=== PATIENT | male | born 1935 | race Caucasian/White ===

== ENCOUNTER → 2017-01-18 | Outpatient (CLI) | payer MEDICARE ==
[~2017-01-18] MED LIST: ALLO100T PO; ALLP100T PO; AMIO200T2 PO; APIX5TAB PO; ASPI-84 PO; ATOR40TA PO; CEFU500T PO; CHOL2000 PO; DOCU100T7 PO; ENAL5TAB PO; ENLP5T PO; FENO160T PO; FENO160T12 PO; GINK60CA13 PO; GLUC10002 PO; LOSA25TA21 PO; LUBI24CA6 PO; NAPR220T66 PO; OMEG1CAP51 PO; OMEP10CA4 PO; OXYB5TAB9 PO; SIMV40TA2 PO; SOTA120T17 PO; TRAZ-28 PO; VIT1CAPS44 PO; WRF5T PO; ZOLP5TAB PO
--- OUTSIDE RECORDS SUMMARY | 2017-01-18 11:31 | XMS REPORT | Continuity of Care Document ---
Author Author [facility] Organization [facility] Address Unknown Phone Unavailable Care Team Providers Care Vault Mechanic Name Role Phone Pilar Martinez PCP [phone] Source Comments Some departments are not documenting in the electronic medical record. If you do not see the information that you expected, contact Release of Information in the Health Information Management department at [phone] for further assistance in locating additional records.[facility] Active Allergies and Adverse Reactions No Known Allergies Current Medications Prescription Sig. Disp. Refills Start End Date Status Date simvastatin (ZOCOR) 20 mg Take 20 mg by mouth at Active tablet bedtime daily. allopurinol (ZYLOPRIM) Take 100 mg by mouth Active 100 mg tablet daily. aspirin EC 81 mg tablet Take 81 mg by mouth Active daily. fenofibrate(+) (TRIGLIDE) Take 160 mg by mouth Active 160 mg tablet daily. losartan (COZAAR) 25 mg Take 25 mg by mouth Active tablet daily. oxybutynin (DITROPAN) 5 Take 5 mg by mouth twice Active mg tablet daily as needed. apixaban (ELIQUIS) 5 mg Take 5 mg by mouth twice Active tab tablet daily. amiodarone (CORDARONE) Take 200 mg by mouth Active 200 mg tablet daily. Active Problems Problem Noted Date Carotid artery stenosis 06/16/2014 Hypertension 06/16/2014 Hyperlipidemia 06/16/2014 Paroxysmal atrial fibrillation (HCC) 06/16/2014 SSS (sick sinus syndrome) (HCC) 06/16/2014 Overview: 03/23/2006: Pacemaker Placed: Medtronic 03/23/2014: PM Interrogation showed multiple episodes of PAT, questionalbe one episode of VT 05/27/2014: MPI: Lexiscan, no significant ischemia or infarction 06/03/2014: Echo: EF 60%, mild mitral and tricuspid regurg, aortic valve stenosis Most Recent Encounters Date Type Specialty Providers Description 01/09/2017 Documentation Cardiology Peggy Juarez, Amiodarone Monitoring - RN following with Dr. Walker in [place], [place] Social History Tobacco Use Types Packs/Day Years Used Date Former Smoker Cigarettes Smokeless Tobacco: Never Used Comments: quit 40 years ago Alcohol Use Drinks/Week oz/Week Comments Yes 5 oz daily Last Filed Vital Signs Vital Sign Reading Time Taken Blood Pressure 120/80 12/24/2014 10:39 AM PROJECT DEVELOPMENT LEADER Pulse 63 12/24/2014 10:39 AM PROJECT DEVELOPMENT LEADER Temperature - - Respiratory Rate - - Height 1.778 m (5' 10") 12/24/2014 10:10 AM PROJECT DEVELOPMENT LEADER Weight 82.101 kg (181 lb) 12/24/2014 10:10 AM PROJECT DEVELOPMENT LEADER Body Mass Index 25.97 12/24/2014 10:10 AM PROJECT DEVELOPMENT LEADER Oxygen Saturation - - Plan of Care Health Maintenance Due Date Last Done Comments Physical (Comprehensive) 1942 Exam Pertussis Vaccine 1945 Tetanus Vaccine 1951 Shingles Vaccine 1994 Prevnar/Pneumovax (#1) 1999 Influenza Vaccine 07/27/2016 Results from Last 3 Months Not on file
--- NOTE | 2017-01-18 12:48 | Diagnostic Imaging Report ---
PA and lateral chest at 11:49 a.m. DICTATION: Medication monitoring, amiodarone. FINDINGS: The heart size is within normal limits and stable when compared to 04/13/2016. The dual-lead pacemaker on the left seen previously is again evident and no different. The small granuloma in the right mid lung noted on the prior exam is also again visualized and unchanged. The lungs themselves are clear and well aerated. There is no sign of failure, pneumonia or pleural effusion to suggest an acute abnormality. The mediastinum is not widened. The osseous structures are intact. IMPRESSION: There is no evidence for active disease. Overall, there has been no adverse change since the prior exam. Dictated by: Dictated on workstation # [id number]
== END ==
LOC: RAD 11:22
PROVIDERS: ATTEND Internal Medicine
DX: Z09 Encounter for follow-up examination after completed treatment for conditions other than malignant neoplasm (principal); Z79.899 Other long term (current) drug therapy
CPT/HCPCS: 71020

== ENCOUNTER → 2017-06-26 | Outpatient (CLI) | payer MEDICARE ==
--- NOTE | 2017-06-26 12:44 | Diagnostic Imaging Report ---
EXAMINATION: PA and lateral views of the chest. INDICATION: Carotid artery stenosis. FINDINGS: There is a calcified granuloma in the right perihilar region. The left lung is clear of focal infiltrate. There is mild left basilar scarring, similar to 01/18/2017. The heart size is normal. No effusion or pneumothorax. The mediastinum and jose g appear unremarkable. There is a pacemaker with two cardiac leads seen. IMPRESSION: No acute process. Dictated by: Dictated on workstation # [id number]
== END ==
LOC: RAD 10:35
PROVIDERS: ATTEND Physician Assistant
DX: I65.23 Occlusion and stenosis of bilateral carotid arteries (principal); I10 Essential (primary) hypertension; E78.2 Mixed hyperlipidemia; I48.0 Paroxysmal atrial fibrillation
CPT/HCPCS: 71020

== ENCOUNTER 2017-07-13 11:15 | Outpatient (RCR) | payer MEDICARE | END 2017-07-13 12:06 | disposition home or self-care (01) | PROVIDERS: ATTEND Internal Medicine Cardiovascular Disease | DX: R53.81 Other malaise (principal); R53.1 Weakness ==

== ENCOUNTER 2017-08-04 22:31 | Emergency (ER) | payer MEDICARE ==
[~2017-08-04] VITALS: Ht 177.8 cm; Wt 78.9 kg
--- OUTSIDE RECORDS SUMMARY | 2017-08-04 22:37 | XMS REPORT | Clinical Summary ---
Author Author [facility] Organization [facility] Address Unknown Phone Unavailable Care Team Providers Care Pattern Molder Name Role Phone PCP Unavailable Source Comments Some departments are not documenting in the electronic medical record. If you do not see the information that you expected, contact Release of Information in the Health Information Management department at [phone] for further assistance in locating additional records.[facility] Allergies No Known Allergies Current Medications Prescription Sig. [...] mitral and tricuspid regurg, aortic valve stenosis Social History Tobacco Use Types Packs/Day Years Used Date Former Smoker Cigarettes Smokeless Tobacco: Never Used Comments: quit 40 years ago Alcohol Use Drinks/Week oz/Week Comments Yes 5 oz daily Sex Assigned at Date Recorded Not on file Last Filed Vital Signs Vital Sign Reading Time Taken Blood Pressure 120/80 12/24/2014 10:39 AM OSCILLOGRAPH TECHNICIAN Pulse 63 12/24/2014 10:39 AM OSCILLOGRAPH TECHNICIAN Temperature - - Respiratory Rate - - Oxygen Saturation - - Inhaled Oxygen - - Concentration Weight 82.1 kg (181 lb) 12/24/2014 10:10 AM OSCILLOGRAPH TECHNICIAN Height 177.8 cm (5' 10") 12/24/2014 10:10 AM OSCILLOGRAPH TECHNICIAN Body Mass Index 25.97 12/24/2014 10:10 AM OSCILLOGRAPH TECHNICIAN Plan of Treatment Health Maintenance Due Date Last Done Comments PHYSICAL (COMPREHENSIVE) 1942 EXAM PERTUSSIS VACCINE 1945 TETANUS VACCINE 1951 SHINGLES VACCINE 1994 PREVNAR/PNEUMOVAX (#1) 1999 INFLUENZA VACCINE 07/27/2017 Results Not on filefrom Last 3 Months
--- NOTE | 2017-08-05 00:12 | ED Fall/Injury ---
General Chief Complaint: Trauma-Non Activation Stated Complaint: R HIP PAIN FROM FALL AT FOOTBALL GAME Nursing Triage Note: RIGHT HIP PAIN/SWELLING, RIGHT FACIAL ABRASION S/P FALL FROM STANDING POSITION. NO LOC Source: patient, family Exam Limitations: no limitations History of Present Illness Time seen by provider: 22:53 Initial Comments This 82-year-old gentleman presents to the emergency room with injury to the right thigh and face after falling at a local football game today between 18:00 and 19:00. He has some gait disturbance due to prior stroke which he states caused the fall. He fell onto the left side and has abrasions/contusions to the right face as well as apparent hematoma to the right thigh. He did attend the football game and then decided to come to the emergency room because of increasing pain and swelling in the right thigh. He does take Eliquis due to history of A. fib. He denies any headache or neurologic changes associated with his head injury. He has no active bleeding at this time. He also has a minor skin tear on the right elbow but no significant pain. He denies any acute vision changes. Location Injury Occurred: FOOTBALL GAME Occurred: this evening Allergies and Home Medications Allergies Coded Allergies: QIANo Known Allergies (Verified Allergy, Unknown, 03/23/06) Home Medications Allopurinol 100 Mg Tablet, 100 MG PO DAILY, (Reported) Amiodarone HCl 200 Mg Tablet, 200 MG PO DAILY, (Reported) Apixaban 5 Mg Tablet, 5 MG PO BID, #30 Prescribed by: GUNNER JUAREZ on 10/02/15 1052 Atorvastatin Calcium 40 Mg Tablet, 40 MG PO DAILY, #30 Ref 3 Prescribed by: FIDELINA HEARN on 10/04/15 0910 Docusate Sodium 100 Mg Tablet, 100 MG PO BID PRN for CONSTIPATION, (Reported) Enalapril Maleate 5 Mg Tablet, 5 MG PO DAILY, #30 Prescribed by: GUNNER JUAREZ on 10/02/15 1031 Losartan Potassium 25 Mg Tablet, 25 MG PO DAILY, (Reported) Lubiprostone 24 Mcg Capsule, 24 MCG PO DAILY, #30 Prescribed by: GUNNER JUAREZ on 10/03/15 1246 Naproxen Sodium 220 Mg Tablet, 220 MG PO Q8H PRN for PAIN, (Reported) Omeprazole 10 Mg Capsule.dr, 10 MG PO DAILY, #30 Prescribed by: GUNNER JUAREZ on 10/02/15 1024 Oxybutynin Chloride 5 Mg Tablet, 5 MG PO BID, (Reported) Trazodone HCl 50 Mg Tablet, 50 MG PO HS, #30 Prescribed by: GUNNER JUAREZ on 10/02/15 1020 Vit C/E/Zn/Coppr/Lutein/Zeaxan 1 Each Capsule, 1 CAP PO BID, (Reported) Constitutional: no symptoms reported Eyes: See HPI Ears, Nose, Mouth, Throat: no symptoms reported Respiratory: no symptoms reported Cardiovascular: see HPI Gastrointestinal: no symptoms reported Genitourinary: no symptoms reported Musculoskeletal: no symptoms reported Skin: see HPI Psychiatric/Neurological: No Symptoms Reported Past Tkbzwgk-Lhcusz-Lymgpx Hx Patient Social History Alcohol Use: Regular Use Alcohol Beverage of Choice: Beer, Wine Recreational Drug Use: No Smoking Status: Never a Smoker 2nd Hand Smoke Exposure: No Recent Foreign Travel: No Contact w/Someone Who Travel: No Recent Infectious Disease Expo: No Recent Hopitalizations: No Immunizations Up To Date Tetanus Booster (TDap): Unknown Date of Pneumonia Vaccine: Jul 14, 2013 Seasonal Allergies Seasonal Allergies: No Surgeries History of Surgeries: Yes (kidney, liver lac. repair(17yrsold),/hernia repair x 2/pacemaker) Surgeries: Abdominal, Eye Surgery (retinal detachment right eye), Pacemaker Respiratory History of Respiratory Disorde: No Cardiovascular History of Cardiac Disorders: Yes Cardiac Disorders: Atrial Fibrillation, High Cholesterol, Hypertension Neurological History of Neurological Disord: Yes Neurological Disorders: Stroke Reproductive System Hx Reproductive Disorders: No Gastrointestinal History of Gastrointestinal Di: No Musculoskeletal History of Musculoskeletal Dis: Yes Musculoskeletal Disorders: Gout Endocrine History of Endocrine Disorders: No HEENT History of HEENT Disorders: Yes (right eye retinal detachment status post surgery) Cancer History of Cancer: No Psychosocial History of Psychiatric Problem: No Integumentary History of Skin or Integumenta: No Blood Transfusions History of Blood Disorders: No Family Medical History Family Medial History: BRAIN TUMOR 19 MOTHER G8 BROTHER BRAIN TUMOR 19 MOTHER G8 BROTHER Completed stroke 19 FATHER ( AT AGE 50 YRS OF AGE FROM BLOOD CLOT TO BRAIN) FH: brain tumor Physical Exam Vital Signs Vital Sign - Last 12Hours 08/04/17 22:48 Temp 97.7 Pulse 74 Resp 18 B/P (MAP) 121/58 Pulse Ox 97 O2 Delivery Room Air Capillary Refill : Less Than 3 Seconds General Appearance: WD/WN, no apparent distress HEENT: PERRL/EOMI, TMs normal, pharynx normal, other (there are abrasions with dried blood and ecchymosis in the right periorbital region.) Neck: non-tender, full range of motion, normal inspection Cardiovascular: regular rate, rhythm, no edema, no murmur Respiratory: lungs clear, normal breath sounds, no respiratory distress, no accessory muscle use Gastrointestinal: normal bowel sounds, soft Back: normal inspection Extremities: non-tender, normal inspection, other (minor skin tear on the right elbow. There is significant firm swelling on the right lateral thigh suggestive of hematoma. Distal sensation, motor function, capillary refill, and pedal pulses intact) Neurologic/Psychiatric: scrub technician II-XII nml as tested, no motor/sensory deficits, alert, normal mood/affect, oriented x 3 Skin: normal color, warm/dry, ecchymosis Iris Coma Score Best Eye Response: (4) Open Spontaneously Best Verbal Response: (5) Oriented Best Motor Response: (6) Obeys Commands Iris Total: 15 Progress/Results/Core Measures Results/Orders My Orders Orders - [place] FELICIANO MD Ct Head Wo (08/04/17 23:02) Femur, Right, 2 Views (08/04/17 23:02) Pelvis (08/04/17 23:02) Dipht,Pertuss(Acell),Tet Adult (Boostrix (08/05/17 00:15) Vital Signs/I&O Vital Sign - Last 12Hours 08/04/17 22:48 Temp 97.7 Pulse 74 Resp 18 B/P (MAP) 121/58 Pulse Ox 97 O2 Delivery Room Air Blood Pressure Mean: 79 Diagnostic Imaging Diagonstic Imaging: Xray Plain Films/CT/US/NM/MRI: pelvis Comments Pelvis x-ray viewed by me and report not available. No acute bony fractures or dislocations appreciated. Diagonstic Imaging: Xray Plain Films/CT/US/NM/MRI: other (right femur) Comments Right femur x-ray viewed by me. Report not yet available. No acute fractures or dislocations appreciated. There is a dense swelling on the right thigh suggestive of hematoma. Vascular calcifications were also noted. Diagonstic Imaging: CT Plain Films/CT/US/NM/MRI: head Comments CT head viewed by me and [facility] report reviewed. No acute intracranial injuries identified. The high density noted in the right globe likely correlates to the history of retinal detachment and multiple procedures performed on the eye. Patient denies any acute visual changes. Departure Impression Impression: Primary Impression: Hematoma of right thigh Qualified Codes: S70.11XA - Contusion of right thigh, initial encounter Additional Impressions: Facial contusion Qualified Codes: S00.83XA - Contusion of other part of head, initial encounter Multiple abrasions Fall on same level from tripping as cause of accidental injury Chronic anticoagulation Disposition: HOME, SELF-CARE Condition: Improved Departure-Patient Inst. Decision time for Depature: 00:00 Referrals: FIDELINA HEARN MD (PCP/Family) Primary Care Physician Patient Instructions: HEMATOMA Add. Discharge Instructions: You may ice your thigh in 20 minute intervals for the next couple of days. Then you may use gentle heat if helpful. Elevate your right thigh by laying on your side if possible. Do not take your Eliquis tonight or tomorrow morning. If you're hematoma is stable tomorrow evening you may resume Eliquis. Return to the ER symptoms worsen, especially if you develop problems with numbness, coolness, or pale color to the right foot. All discharge instructions reviewed with patient and/or family. Voiced understanding. NY FELICIANO MD Aug 05, 2017 00:12
[2017-08-05] MEDS ORDERED: TETANUS,DIPTH,PERTUSS P/F (BOOSTRIX) 0.5 ML VIAL IM ONE (00:15)
[2017-08-05 00:19] VITALS: BP 119/69
--- NOTE | 2017-08-05 06:08 | Diagnostic Imaging Report ---
PROCEDURE: CT head without contrast. TECHNIQUE: Multiple contiguous axial images were obtained through the brain without the use of intravenous contrast. INDICATION: Fall. Head contusions. Facial contusions. COMPARISON: CT head without contrast 10/02/2015. FINDINGS: No intracranial hemorrhage, mass effect, hydrocephalus or extra-axial fluid collections. Vascular calcifications. Bilateral basal ganglia calcifications. Moderate generalized cerebral and cerebellar parenchymal volume loss is age appropriate. Osseous structures are intact. The paranasal sinuses and mastoids are clear. Postoperative changes in the right globe. Soft tissue contusion overlying the right frontal bone. IMPRESSION: No acute intracranial CT findings. Dictated by: Dictated on workstation # [id number]
--- NOTE | 2017-08-05 06:18 | Diagnostic Imaging Report ---
EXAM: PELVIS INDICATION: Fall. Head contusions. Right hip and pelvic pain. COMPARISON: None. FINDINGS: No fracture or malalignment. Moderate degenerative changes in both hips and the visualized lower lumbar spine. Soft tissue shadows are unremarkable. IMPRESSION: No acute radiographic findings in the pelvis. Dictated by: Dictated on workstation # [id number]
--- NOTE | 2017-08-05 06:20 | Diagnostic Imaging Report ---
EXAM: FEMUR, RIGHT, 2 VIEWS INDICATION: Right hip pain. Fall. COMPARISON: Pelvis radiographs also performed today. FINDINGS: No fracture or malalignment. Mild degenerative changes in the right knee. Moderate degenerative changes in the right hip. Vascular calcifications. IMPRESSION: No acute radiographic findings in the right femur. Dictated by: Dictated on workstation # [id number]
== END 2017-08-05 00:19 | disposition home or self-care (01) ==
LOC: EDUNIT# 22:31 → ER 22:33
DX: S70.11XA Contusion of right thigh, initial encounter (principal); S00.211A Abrasion of right eyelid and periocular area, initial encounter; I48.91 Unspecified atrial fibrillation; E78.00 Pure hypercholesterolemia, unspecified; I10 Essential (primary) hypertension; Z23 Encounter for immunization; Z79.01 Long term (current) use of anticoagulants; Z98.890 Other specified postprocedural states; Z95.0 Presence of cardiac pacemaker; W01.0XXA Fall on same level from slipping, tripping and stumbling without subsequent striking against object, initial encounter
CPT/HCPCS: 70450; 72170; 73552; 90715; 99284

== ENCOUNTER → 2017-09-19 | Outpatient (CLI) | payer MEDICARE ==
--- NOTE | 2017-09-19 18:51 | Diagnostic Imaging Report ---
INDICATION: Cough. EXAMINATION: PA and lateral chest. FINDINGS: There is a dual-chamber pacemaker. There is calcified granuloma in the right midlung. Heart size and pulmonary vascularity are normal. Lungs are clear. There are no effusions or pneumothoraces. IMPRESSION: No acute abnormalities in the chest. Dictated by: Dictated on workstation # [id number]
== END ==
LOC: RAD 16:27
PROVIDERS: ATTEND Nurse Practitioner
DX: R05 Cough (principal); R07.9 Chest pain, unspecified
CPT/HCPCS: 71020

== ENCOUNTER 2017-11-09 11:17 | Outpatient (RCR) | payer MEDICARE | END 2017-12-21 10:39 | disposition home or self-care (01) | PROVIDERS: ATTEND Internal Medicine | DX: R53.1 Weakness (principal); Z91.81 History of falling ==

== ENCOUNTER → 2018-01-17 | Outpatient (CLI) | payer MEDICARE | LOC: CARD 09:03 | PROVIDERS: ATTEND Internal Medicine Cardiovascular Disease | DX: I10 Essential (primary) hypertension (principal); I48.0 Paroxysmal atrial fibrillation; E78.2 Mixed hyperlipidemia; I49.5 Sick sinus syndrome; I65.23 Occlusion and stenosis of bilateral carotid arteries | CPT/HCPCS: 93306 ==

== ENCOUNTER 2018-03-22 10:37 | Outpatient (RCR) | payer MEDICARE | END 2018-04-24 14:39 | disposition home or self-care (01) | PROVIDERS: ATTEND Internal Medicine | DX: R26.9 Unspecified abnormalities of gait and mobility (principal) ==

== ENCOUNTER 2018-04-04 06:00 | Outpatient (RCR) | payer MEDICARE | END 2018-05-04 | disposition home or self-care (01) | LOC: CR3 06:00 | PROVIDERS: ATTEND Internal Medicine | DX: Z29.8 Encounter for other specified prophylactic measures (principal) ==

== ENCOUNTER 2018-04-30 14:29 | Emergency (ER) | payer MEDICARE ==
[~2018-04-30] VITALS: Ht 180.3 cm; Wt 82.1 kg
--- OUTSIDE RECORDS SUMMARY | 2018-04-30 14:36 | XMS REPORT | Clinical Summary ---
Author Author [facility] Organization [facility] Address Unknown Phone Unavailable Care Team Providers Care Room Attendant Name Role Phone Fidelina Martinez MD PCP Source Comments Some departments are not documenting in the electronic medical record. If you do not see the information that you expected, contact Release of Information in the Health Information Management department at [phone] for further assistance in locating additional records.[facility] Allergies No Known Allergies Current Medications [...] Taken Blood Pressure 120/80 12/24/2014 10:39 AM COUNSELOR AIDE Pulse 63 12/24/2014 10:39 AM COUNSELOR AIDE Temperature - - Respiratory Rate - - Oxygen Saturation - - Inhaled Oxygen - - Concentration Weight 82.1 kg (181 lb) 12/24/2014 10:10 AM COUNSELOR AIDE Height 177.8 cm (5' 10") 12/24/2014 10:10 AM COUNSELOR AIDE Body Mass Index 25.97 12/24/2014 10:10 AM COUNSELOR AIDE Plan of Treatment Health Maintenance Due Date Last Done Comments PHYSICAL (COMPREHENSIVE) 1941 EXAM PERTUSSIS VACCINE 1945 TETANUS VACCINE 1951 SHINGLES VACCINE 1994 PNEUMONIA (PCV13/PPSV23) 1999 VACCINES (1 of 2 - PCV13) INFLUENZA VACCINE 08/26/2018 Results Not on filefrom Last 3 Months
[2018-04-30] MEDS ORDERED: TETANUS,DIPTH,PERTUSS P/F (BOOSTRIX) 0.5 ML VIAL IM ONE (14:45)
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
[2018-04-30 15:28] LABS: BASOPHILS % (AUTO) 0 % (0-10); EOSINOPHILS # (AUTO) 0.1 10^3/uL (0.0-0.3); EOSINOPHILS % (AUTO) 1 % (0-10); HEMATOCRIT 40 % (40-54); HEMOGLOBIN 13.6 G/DL (13.3-17.7); LYMPHOCYTES # (AUTO) 1.3 X 10^3 (1.0-4.0); LYMPHOCYTES % (AUTO) 18 % (12-44); MEAN CORPUSCULAR HEMOGLOBIN 31 PG (25-34); MEAN CORPUSCULAR HGB CONC 34 G/DL (32-36); MEAN CORPUSCULAR VOLUME 93 FL (80-99); MEAN PLATELET VOLUME 10.6 FL (7.4-10.4); MONOCYTES # (AUTO) 0.6 X 10^3 (0.0-1.0); MONOCYTES % (AUTO) 8 % (0-12); NEUTROPHILS # (AUTO) 5.3 X 10^3 (1.8-7.8); NEUTROPHILS % (AUTO) 73 % (42-75); PLATELET COUNT 138 10^3/uL (130-400); RED BLOOD COUNT 4.32 10^6/uL (4.35-5.85); RED CELL DISTRIBUTION WIDTH 13.5 % (10.0-14.5); WHITE BLOOD COUNT 7.2 10^3/uL (4.3-11.0)
[2018-04-30 15:37] LABS: ALANINE AMINOTRANSFERASE 22 U/L (0-55); ALBUMIN 3.8 GM/DL (3.2-4.5); ALKALINE PHOSPHATASE 89 U/L (40-136); BILIRUBIN,TOTAL 0.8 MG/DL (0.1-1.0); BUN/CREATININE RATIO 11; CALCIUM 8.7 MG/DL (8.5-10.1); CARBON DIOXIDE 22 MMOL/L (21-32); CHLORIDE 110 MMOL/L (98-107); CREATININE SERUM 0.92 MG/DL (0.60-1.30); GFR ESTIMATED > 60; GLUCOSE 113 MG/DL (70-105); SODIUM 142 MMOL/L (135-145); TOTAL PROTEIN 6.1 GM/DL (6.4-8.2)
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
[2018-04-30 16:11] VITALS: BP 150/74
== END 2018-04-30 16:11 | disposition home or self-care (01) ==
LOC: EDUNIT# 14:29 → ER 14:31
DX: S01.81XA Laceration without foreign body of other part of head, initial encounter (principal); R40.2142 Coma scale, eyes open, spontaneous, at arrival to emergency department; R40.2252 Coma scale, best verbal response, oriented, at arrival to emergency department; R40.2362 Coma scale, best motor response, obeys commands, at arrival to emergency department; E07.9 Disorder of thyroid, unspecified; I48.91 Unspecified atrial fibrillation; E78.00 Pure hypercholesterolemia, unspecified; I10 Essential (primary) hypertension; M10.9 Gout, unspecified; Z85.841 Personal history of malignant neoplasm of brain; Z86.73 Personal history of transient ischemic attack (TIA), and cerebral infarction without residual deficits; Z79.01 Long term (current) use of anticoagulants; Z95.0 Presence of cardiac pacemaker; Z23 Encounter for immunization; V49.40XA Driver injured in collision with unspecified motor vehicles in traffic accident, initial encounter
CPT/HCPCS: 36415; 70450; 71045; 72125; 72170; 73080; 73130; 73552; 80053; 85025; 90471; 90715

== ENCOUNTER 2018-11-04 14:25 | Emergency (ER) | payer MEDICARE ==
[~2018-11-04] VITALS: Ht 177.8 cm; Wt 77.1 kg
[~2018-11-04 14:25] MED LIST changes: -AMIO200T2 PO; +AMIO200T4 PO; -LOSA25TA21 PO; +LOSA25TA6 PO; +TRAZ-189 PO; -TRAZ-28 PO
--- OUTSIDE RECORDS SUMMARY | 2018-11-04 14:32 | XMS REPORT | Clinical Summary ---
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
--- OUTSIDE RECORDS SUMMARY | 2018-11-04 14:32 | XMS REPORT | Clinical Summary ---
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 If you do not see the information that you expected, contact Release of Information in the Health Information Management department at [phone] for further assistance in locating additional records.[facility] Allergies No Known Allergies Medications End Date Status Medication Sig Dispensed Refills Start Date Active simvastatin (ZOCOR) 20 mg Take 20 mg by 0 tablet mouth at bedtime daily. Active allopurinol (ZYLOPRIM) Take 100 mg 0 100 mg tablet by mouth daily. Active aspirin EC 81 mg tablet Take 81 mg by 0 mouth daily. Active fenofibrate(+) (TRIGLIDE) Take 160 mg 0 160 mg tablet by mouth daily. Active losartan (COZAAR) 25 mg Take 25 mg by 0 tablet mouth daily. Active oxybutynin (DITROPAN) 5 Take 5 mg by 0 mg tablet mouth twice daily as needed. Active apixaban (ELIQUIS) 5 mg Take 5 mg by 0 tab tablet mouth twice daily. Active amiodarone (CORDARONE) Take 200 mg 0 200 mg tablet by mouth daily. Active Problems Problem Noted Date Carotid artery stenosis 06/16/2014 Hypertension 06/16/2014 Hyperlipidemia 06/16/2014 Paroxysmal atrial fibrillation 06/16/2014 SSS (sick sinus syndrome) 06/16/2014 Overview: 03/23/2006: Pacemaker Placed: Medtronic 03/23/2014: PM Interrogation showed multiple episodes of PAT, questionalbe one episode of VT 05/27/2014: MPI: Lexiscan, no significant ischemia or infarction 06/03/2014: Echo: EF 60%, mild mitral and tricuspid regurg, aortic valve stenosis Social History Date Tobacco Use Types Packs/Day Years Used Former Smoker Cigarettes Smokeless Tobacco: Never Used Comments: quit 40 years ago Alcohol Use Drinks/Week oz/Week Comments Yes 5 oz daily Sex Assigned at Date Recorded Not on file Industry Job Start Date Occupation Not on file Not on file Not on file Travel End Travel History Travel Start No recent travel history available. Last Filed Vital Signs Time Taken Vital Sign Reading 12/24/2014 10:39 AM [facility] Blood Pressure 120/80 12/24/2014 10:39 AM [facility] Pulse 63 - Temperature - - Respiratory Rate - - Oxygen Saturation - - Inhaled Oxygen - Concentration 12/24/2014 10:10 AM [facility] Weight 82.1 kg (181 lb) 12/24/2014 10:10 AM [facility] Height 177.8 cm (5' 10") 12/24/2014 10:10 AM [facility] Body Mass Index 25.97 Plan of Treatment Health Maintenance Due Date Last Done Comments PHYSICAL (COMPREHENSIVE) 1941 EXAM DTAP/TDAP VACCINES (1 - 02/05/1952 Tdap) SHINGLES RECOMBINANT 02/05/1984 VACCINE (1 of 2) PNEUMONIA (PCV13/PPSV23) 1999 VACCINES (1 of 2 - PCV13) INFLUENZA VACCINE 06/26/2018 Implants Device Identifier Shelf Expiration Date Model / Serial / Lot Implanted Type Area Manufactur er Pacemaker Pacemaker Results Not on filefrom Last 3 Months Insurance Payer Benefit Subscriber ID Type Phone Address Plan / Group MEDICARE MEDICARE xxxxxxxxxx Medicare PART A AND B [facility] xxxxxxxxxxx PPO Advance Directives Patient has advance care planning documents on file. For more information, please contact: [facility] [address] [place] [address]
--- OUTSIDE RECORDS SUMMARY | 2018-11-04 14:34 | XMS REPORT | Continuity of Care Document ---
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 07/13/2017 12:06:00 DIS [facility] [id number] 06/26/2017 10:35:00 06/26/2017 23:59:59 CLS Outpatient THU SMALL [facility] RAD I65.23 I10 E78.2 I48.0 [id number] 01/18/2017 11:22:00 01/18/2017 23:59:59 CLS Outpatient FIDELINA HEARN MD [facility] RAD MEDICATION MONITORING [id number] 04/13/2016 09:07:00 04/13/2016 23:59:59 CLS Outpatient THU SMALL [facility] RAD CAROTID ARTERY STENOSIS,HTN,PAF [id number] 02/09/2016 10:49:00 02/09/2016 11:18:00 DIS Outpatient FIDELINA HEARN MD [facility] REHAB CVA [id number] 12/23/2015 09:25:00 01/06/2016 10:21:00 DIS [facility] [id number] 01/03/2016 10:29:00 01/03/2016 23:59:59 CLS [facility] [id number] 10/02/2015 08:48:00 10/04/2015 10:55:00 DIS Inpatient FIDELINA HEARN MD [facility] 4TH CVA [id number] 07/14/2015 07:02:00 07/14/2015 16:40:00 DIS Outpatient ASCENCION BENNETT MD [facility] CATH DIDIER,HTN,HYPERLIPIDEMIA [id number] 05/03/2015 09:47:00 05/03/2015 11:51:00 DIS Emergency HALIE DO, CORKY K [facility] ER LOW BLOOD PRESSURE [id number] 01/08/2015 12:30:00 01/08/2015 23:59:59 CLS Outpatient ASCENCION BENNETT MD [facility] 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 [id number] 06/24/2014 07:02:00 06/24/2014 23:59:59 CLS Outpatient JENNIE HARRY MD [facility] RT PRE SURG EVAL [id number] 06/01/2014 12:25:00 06/01/2014 23:59:59 CLS Outpatient ASCENCION BENNETT MD [facility] CARD HTN,HLP [id number] 05/27/2014 07:57:00 05/27/2014 23:59:59 CLS Outpatient ASCENCION BENNETT MD [facility] CARD HTN,HLP [id number] 06/16/2013 10:07:00 06/16/2013 23:59:59 CLS Outpatient LANCE BACA MD [facility] ONC [id number] 05/03/2015 12:22:00 Document Registration [id number] 09/25/2012 08:10:00 Document Registration [id number] 06/17/2012 10:24:00 Document Registration [id number] 06/21/2011 09:38:00 Document Registration [id number] 07/13/2010 09:17:00 Document Registration [id number] 05/20/2010 23:40:00 Document Registration [id number] 01/19/2010 07:22:00 Document Registration [id number] 01/17/2010 10:09:00 Document Registration [id number] 01/10/2010 09:02:00 Document Registration [email or web address] 07/14/2015 07:03:33 ACT Document Registration
--- NOTE | 2018-11-04 14:37 | ED General ---
General Stated Complaint: COUGH Source of Information: Patient, EMS, Family Exam Limitations: No Limitations History of Present Illness Date Seen by Provider: Nov 04, 2018 Time Seen by Provider: 14:35 Initial Comments To ER per EMS from home with reports of a cough that is productive for a few days, increased confusion and generalized weakness. The patient's only complaint is the productive cough however family reports that he is quite weak and seems a bit more confused lately Timing/Duration: 1-2 Days Severity: Moderate Associated Systoms: Cough, Weakness Allergies and Home Medications Allergies Coded Allergies: NKANo Known Allergies (Verified Allergy, Unknown, 03/23/06) Home Medications Allopurinol 100 Mg Tablet, 100 MG PO DAILY, (Reported) Amiodarone HCl 200 Mg Tablet, 200 MG PO DAILY, (Reported) Apixaban 5 Mg Tablet, 5 MG PO BID Prescribed by: GUNNER JUAREZ on 10/02/15 1052 Atorvastatin Calcium 40 Mg Tablet, 40 MG PO DAILY Prescribed by: FIDELINA HEARN on 10/04/15 0910 Docusate Sodium 100 Mg Tablet, 100 MG PO BID PRN for CONSTIPATION, (Reported) Enalapril Maleate 5 Mg Tablet, 5 MG PO DAILY Prescribed by: GUNNER JUAREZ on 10/02/15 1031 Losartan Potassium 25 Mg Tablet, 25 MG PO DAILY, (Reported) Lubiprostone 24 Mcg Capsule, 24 MCG PO DAILY Prescribed by: GUNNER JUAREZ on 10/03/15 1246 Naproxen Sodium 220 Mg Tablet, 220 MG PO Q8H PRN for PAIN, (Reported) Omeprazole 10 Mg Capsule.dr, 10 MG PO DAILY Prescribed by: GUNNER JUAREZ on 10/02/15 1024 Oxybutynin Chloride 5 Mg Tablet, 5 MG PO BID, (Reported) Trazodone HCl 50 Mg Tablet, 50 MG PO HS Prescribed by: GUNNER JUAREZ on 10/02/15 1020 Vit C/E/Zn/Coppr/Lutein/Zeaxan 1 Each Capsule, 1 CAP PO BID, (Reported) Patient Home Medication List Home Medication List Reviewed: Yes Review of Systems Review of Systems Constitutional: see HPI EENTM: see HPI Respiratory: see HPI, cough Cardiovascular: no symptoms reported Genitourinary: no symptoms reported Musculoskeletal: no symptoms reported Skin: no symptoms reported Psychiatric/Neurological: No Symptoms Reported Hematologic/Lymphatic: No Symptoms Reported Immunological/Allergic: no symptoms reported Past Jazrhsj-Ryechx-Joerjj Hx Patient Social History Alcohol Beverage of Choice: Beer, Wine 2nd Hand Smoke Exposure: No Recent Foreign Travel: No Contact w/Someone Who Travel: No Recent Hopitalizations: No Immunizations Up To Date Tetanus Booster (TDap): Unknown Date of Pneumonia Vaccine: Jul 14, 2013 Seasonal Allergies Seasonal Allergies: No Past Medical History Surgeries: Yes (kidney, liver lac. 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 0oz. 82.025391es; 21.09 BMI Method:Stated General Appearance: No Apparent Distress, WD/WN Eyes: Bilateral Eye Normal Inspection, Bilateral Eye PERRL HEENT: PERRL/EOMI, TMs Normal Neck: Full Range of Motion, Normal Inspection Respiratory: Normal Breath Sounds, No Accessory Muscle Use, No Respiratory Distress Cardiovascular: Regular Rate, Rhythm, Normal Peripheral Pulses Gastrointestinal: Normal Bowel Sounds, Non Tender, Soft Extremity: Normal Capillary Refill, Normal Inspection Neurologic/Psychiatric: Alert, Oriented x3 Skin: Normal Color, Warm/Dry Progress/Results/Core Measures Suspected Sepsis SIRS Temperature: Pulse: Respiratory Rate: Laboratory Tests 11/04/18 14:40: White Blood Count 4.5 Blood Pressure / Mean: Laboratory Tests 11/04/18 14:40: Creatinine 0.90, Platelet Count 102L, Total Bilirubin 0.9 Results/Orders Lab Results Laboratory Tests Test 11/04/18 14:40 11/04/18 15:25 Range/Units White Blood Count 4.5 4.3-11.0 10^3/uL Red Blood Count 4.27 L 4.35-5.85 10^6/uL Hemoglobin 13.5 13.3-17.7 G/DL Hematocrit 39 L 40-54 % Mean Corpuscular Volume 92 80-99 FL Mean Corpuscular Hemoglobin 32 25-34 PG Mean Corpuscular Hemoglobin Concent 34 32-36 G/DL Red Cell Distribution Width 13.3 10.0-14.5 % Platelet Count 102 L 130-400 10^3/uL Mean Platelet Volume 10.1 7.4-10.4 FL Neutrophils (%) (Auto) 60 42-75 % Lymphocytes (%) (Auto) 23 12-44 % Monocytes (%) (Auto) 16 H 0-12 % Eosinophils (%) (Auto) 1 0-10 % Basophils (%) (Auto) 1 0-10 % Neutrophils # (Auto) 2.7 1.8-7.8 X 10^3 Lymphocytes # (Auto) 1.0 1.0-4.0 X 10^3 Monocytes # (Auto) 0.7 0.0-1.0 X 10^3 Eosinophils # (Auto) 0.0 0.0-0.3 10^3/uL Basophils # (Auto) 0.0 0.0-0.1 10^3/uL Sodium Level 136 135-145 MMOL/L Potassium Level 4.1 3.6-5.0 MMOL/L Chloride Level 103 98-107 MMOL/L Carbon Dioxide Level 24 21-32 MMOL/L Anion Gap 9 5-14 MMOL/L Blood Urea Nitrogen 11 7-18 MG/DL Creatinine 0.90 0.60-1.30 MG/DL Estimat Glomerular Filtration Rate > 60 BUN/Creatinine Ratio 12 Glucose Level 97 70-105 MG/DL Calcium Level 8.4 L 8.5-10.1 MG/DL Corrected Calcium 8.6 8.5-10.1 MG/DL Total Bilirubin 0.9 0.1-1.0 MG/DL Aspartate Amino Transf (AST/SGOT) 27 5-34 U/L Alanine Aminotransferase (ALT/SGPT) 19 0-55 U/L Alkaline Phosphatase 80 40-136 U/L Total Protein 5.8 L 6.4-8.2 GM/DL Albumin 3.8 3.2-4.5 GM/DL Urine Color YELLOW Urine Clarity CLEAR Urine pH 6 5-9 Urine Specific [place] 1.015 L 1.016-1.022 Urine Protein 2+ H NEGATIVE Urine Glucose (UA) NEGATIVE NEGATIVE Urine Ketones 1+ H NEGATIVE Urine Nitrite NEGATIVE NEGATIVE Urine Bilirubin NEGATIVE NEGATIVE Urine Urobilinogen 1 NORMAL MG/DL Urine Leukocyte Esterase 1+ H NEGATIVE Urine RBC (Auto) NEGATIVE NEGATIVE Urine RBC NONE /HPF Urine WBC RARE /HPF Urine Squamous Epithelial Cells NONE /HPF Urine Crystals NONE /LPF Urine Bacteria NEGATIVE /HPF Urine Casts NONE /LPF Urine Mucus NEGATIVE /LPF Urine Culture Indicated NO My Orders Orders - DA KAUFMAN APRN Cbc With Automated Diff (11/04/18 14:34) Comprehensive Metabolic Panel (11/04/18 14:34) Chest 1 View, Ap/Pa Only (11/04/18 14:34) Ua Culture If Indicated (11/04/18 14:34) Iv Heplock-Insert (Order) (11/04/18 14:34) Ct Head Wo (11/04/18 14:34) Vital Signs/I&O 11/04/18 15:03 Temp 98.7 Pulse 66 Resp 18 B/P (MAP) 167/ Pulse Ox 97 Capillary Refill : Diagnostic Imaging Diagonstic Imaging: Xray Plain Films/CT/US/NM/MRI: chest Comments NAME: FIDELINA RUEDA [facility] REC#: [id number] PT STATUS: REG ER : 1935 PHYSICIAN: DA KAUFMAN APRN ADMIT DATE: 11/04/18/ER Draft Date of Exam:11/04/18 CHEST 1 VIEW, AP/PA ONLY EXAMINATION: Portable erect AP chest at 2:41 p.m. INDICATION: Cough. FINDINGS: The heart size is within normal limits and stable when compared to 04/30/2018. The left-sided pacemaker seen previously is again evident and no different. The lungs are clear. There are a few small calcified granulomas in both lungs, but there is no evidence for failure, pneumonia, or for a pleural effusion. The mediastinum is not widened. The osseous structures are intact. IMPRESSION: There is no evidence for an acute cardiopulmonary abnormality. Dictated on workstation # [id number] Dict: 11/04/18 1503 Trans: 11/04/18 [phone] Interpreted by: PERRY SARKAR MD Electronically signed by: Departure Communication (Admissions) Patient's daughter is at the bedside. She is comfortable taking him home he would prefer to go home. Impression Primary Impression: Bronchitis Disposition: 01 HOME, SELF-CARE Condition: Stable Departure-Patient Inst. Decision time for Depature: 16:12 Referrals: FIDELINA HEARN MD (PCP/Family) Primary Care Physician Patient Instructions: Acute Bronchitis, Adult (DC) Add. Discharge Instructions: 1. Antibiotics as directed 2. Cough medication as directed. 3. You may also use over the counter Mucinex to help break up the secretions and make it easier to cough up. Scripts Acetaminophen with Codeine (Tylenol with Codeine #3 Tablet) 1 Each Tablet 1 EACH PO Q4H PRN for COUGH, #14 TAB Prov: DA KAUFMAN APRN 11/04/18 Cefuroxime Axetil (Cefuroxime) 250 Mg Tablet 250 MG PO BID, #14 TAB Prov: DA KAUFMAN APRN 11/04/18 Copy Copies To 1: FIDELINA HEARN MD, PETER J APRN Nov 04, 2018 14:37
[2018-11-04 14:45] LABS: BASOPHILS % (AUTO) 1 % (0-10); EOSINOPHILS % (AUTO) 1 % (0-10); HEMATOCRIT 39 % (40-54); HEMOGLOBIN 13.5 G/DL (13.3-17.7); LYMPHOCYTES % (AUTO) 23 % (12-44); MEAN CORPUSCULAR HEMOGLOBIN 32 PG (25-34); MEAN CORPUSCULAR HGB CONC 34 G/DL (32-36); MEAN CORPUSCULAR VOLUME 92 FL (80-99); MEAN PLATELET VOLUME 10.1 FL (7.4-10.4); MONOCYTES # (AUTO) 0.7 X 10^3 (0.0-1.0); MONOCYTES % (AUTO) 16 % (0-12); NEUTROPHILS # (AUTO) 2.7 X 10^3 (1.8-7.8); NEUTROPHILS % (AUTO) 60 % (42-75); PLATELET COUNT 102 10^3/uL (130-400); RED BLOOD COUNT 4.27 10^6/uL (4.35-5.85); RED CELL DISTRIBUTION WIDTH 13.3 % (10.0-14.5); WHITE BLOOD COUNT 4.5 10^3/uL (4.3-11.0)
[2018-11-04 15:03] VITALS: BP_SYST 167
[2018-11-04 15:07] LABS: ALANINE AMINOTRANSFERASE 19 U/L (0-55); ALBUMIN 3.8 GM/DL (3.2-4.5); ALKALINE PHOSPHATASE 80 U/L (40-136); BILIRUBIN,TOTAL 0.9 MG/DL (0.1-1.0); BUN/CREATININE RATIO 12; CALCIUM 8.4 MG/DL (8.5-10.1); CARBON DIOXIDE 24 MMOL/L (21-32); CHLORIDE 103 MMOL/L (98-107); GFR ESTIMATED > 60; GLUCOSE 97 MG/DL (70-105); POTASSIUM 4.1 MMOL/L (3.6-5.0); SODIUM 136 MMOL/L (135-145); TOTAL PROTEIN 5.8 GM/DL (6.4-8.2)
--- NOTE | 2018-11-04 15:16 | Diagnostic Imaging Report ---
EXAMINATION: Portable erect AP chest at 2:41 p.m. INDICATION: Cough. FINDINGS: The heart size is within normal limits and stable when compared to 04/30/2018. The left-sided pacemaker seen previously is again evident and no different. The lungs are clear. There are a few small calcified granulomas in both lungs, but there is no evidence for failure, pneumonia, or for a pleural effusion. The mediastinum is not widened. The osseous structures are intact. IMPRESSION: There is no evidence for an acute cardiopulmonary abnormality. Dictated by: Dictated on workstation # [id number]
[2018-11-04 15:27] LABS: BILIRUBIN,URINE NEGATIVE (NEGATIVE); CLARITY,URINE CLEAR; COLOR,URINE YELLOW; GLUCOSE, URINE (UA) NEGATIVE (NEGATIVE); KETONES,URINE 1+ (NEGATIVE); LEUKOCYTE ESTERASE ,URINE 1+ (NEGATIVE); NITRITE,URINE NEGATIVE (NEGATIVE); PH,URINE 6 (5-9); PROTEIN,URINE 2+ (NEGATIVE); UROBILINOGEN,URINE 1 MG/DL (NORMAL)
[2018-11-04 15:34] LABS: BACTERIA,URINE NEGATIVE /HPF; WBC,URINE RARE /HPF
--- NOTE | 2018-11-04 15:41 | Diagnostic Imaging Report ---
Clinical indication: Patient with altered mental status and confusion. Exam: Axial CT scan of brain performed without IV contrast. Comparison: Head CT without contrast dated 04/30/2018. Findings: There is no evidence of acute cerebral infarct, intracranial hemorrhage, or gross mass effect. Stable diffuse brain parenchymal volume loss which is most pronounced in the bilateral temporal lobe and frontal regions. There is no significant change to the patchy and focal areas of low-attenuation white matter changes seen throughout both cerebral hemispheres, likely representing chronic small vessel ischemic disease. There is normal diallo-white matter distinction. There is no significant midline shift or herniation. There is no evidence of hydrocephalus. The basal cisterns are unremarkable. 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 Otherwise, the skull, extracranial soft tissue, and orbits are unremarkable. The paranasal sinuses are unremarkable. Temporal bones show no significant abnormality. Impression: 1: Stable CT scan of the brain with no evidence of interval acute intracranial process. If there is concern for acute cerebral infarct, then MRI of the brain would better evaluate. 2: Chronic small vessel ischemic disease of the brain parenchyma. Dictated by: Dictated on workstation # [id number]
[2018-11-04] MEDS ORDERED: ACET-789 PO (16:13)
[2018-11-04] MEDS ORDERED: CEFU250T80 PO (16:13)
== END 2018-11-04 16:30 | disposition home or self-care (01) ==
LOC: EDUNIT# 14:25 → ER 14:28
DX: J40 Bronchitis, not specified as acute or chronic (principal); I48.91 Unspecified atrial fibrillation; E78.00 Pure hypercholesterolemia, unspecified; I10 Essential (primary) hypertension; M10.9 Gout, unspecified; Z86.73 Personal history of transient ischemic attack (TIA), and cerebral infarction without residual deficits; Z79.01 Long term (current) use of anticoagulants; Z79.51 Long term (current) use of inhaled steroids; Z98.890 Other specified postprocedural states; Z95.0 Presence of cardiac pacemaker
CPT/HCPCS: 36415; 70450; 71045; 80053; 81000; 85025

== ENCOUNTER → 2019-05-14 | Outpatient (CLI) | payer MEDICARE ==
[~2019-05-14] MED LIST changes: +ACET-789 PO; +CEFU250T80 PO; +LOSA25TA41 PO; -LOSA25TA6 PO; -TRAZ-189 PO; +TRAZ-222 PO
--- NOTE | 2019-05-14 12:03 | Diagnostic Imaging Report ---
INDICATION: Carotid artery stenosis. TECHNIQUE: Axial imaging through the neck was performed after the administration of intravenous contrast utilizing CT angiography protocol. Multiplanar, 3-D and MIP reformations were also performed. FINDINGS: Proximal aspects of the common carotid arteries are compromised due to a large amount of artifact. Left common carotid artery appears to be patent. There is a large amount of calcified plaque in the distal left common carotid artery near the bifurcation extending into the proximal left internal carotid artery. However, no significant stenosis is identified. Distal internal carotid artery does show a large amount of calcified plaque at the carotid siphon but no significant stenosis is seen. Distal right common carotid artery also demonstrates significant plaque. There appears to be a moderate stenosis of the distal right common carotid artery just proximal to the bifurcation. There is calcified plaque in the proximal right internal carotid artery however no high-grade stenosis is seen. Distal right internal carotid artery does show a large amount of calcified plaque at the siphon but no significant stenosis is seen. The vertebral arteries are suboptimally evaluated due to suboptimal opacification. IMPRESSION: There is significant calcified plaque in both carotid systems. There appears to be moderate stenosis of the distal right common carotid artery just proximal to the bifurcation. Doppler evaluation at this location may be useful. No left-sided carotid stenosis is seen. Dictated by: Dictated on workstation # [id number]
[2019-05-14 15:24] LABS: BUN/CREATININE RATIO 9; CREATININE SERUM 0.98 MG/DL (0.60-1.30); GFR ESTIMATED > 60
== END ==
LOC: RAD 09:10
PROVIDERS: ATTEND Internal Medicine Cardiovascular Disease
DX: I65.23 Occlusion and stenosis of bilateral carotid arteries (principal)
CPT/HCPCS: 36415; 70498; 82565; 84520

== ENCOUNTER → 2022-02-16 | Outpatient (CLI) | payer MEDICARE ==
[~2022-02-16] MED LIST changes: -AMIO200T4 PO; +AMIO200T65 PO; -ENAL5TAB PO; -OMEP10CA4 PO; +OMEP10CA5 PO; +OXYB5TAB13 PO; -OXYB5TAB9 PO; -TRAZ-222 PO; +TRZ50T PO
--- NOTE | 2022-02-16 17:40 | Diagnostic Imaging Report ---
INDICATION: Cough. TECHNIQUE: PA and lateral views of the chest are obtained with comparison made to study of 09/19/2017. FINDINGS: Overall heart size and pulmonary vascularity are within normal limits. Minimal linear atelectasis or scarring is seen in the lung bases without significant change from previous study. Calcified granulomas also noted in the right lung. Left anterior chest wall dual-chamber cardiac pacemaker is in place with leads projecting over the right atrium and ventricle. Advanced degenerative findings are seen in the left shoulder. IMPRESSION: No acute abnormality or significant change is identified. Dictated by: Dictated on workstation # [id number]
== END ==
LOC: RAD 15:01
PROVIDERS: ATTEND Internal Medicine
DX: R05.9 Cough, unspecified (principal)
CPT/HCPCS: 71046

== ENCOUNTER 2022-05-15 10:57 | Inpatient (IN) | payer MEDICARE ==
[~2022-05-15] VITALS: Ht 177.8 cm; Wt 82.0 kg
[2022-05-15] VITALS (9 sets, daily range): BP systolic 92–148; BP diastolic 57–127
--- NOTE | 2022-05-15 11:26 | ED General ---
General Chief Complaint: Cardiac/General Problems Stated Complaint: HYPOTENSION Nursing Triage Note: PT BROUGHT IN BY [facility] FROM HOME WITH COMPLAINT OF HYPOTENSION. PT ALSO HAS RASH ON RIGHT THIGH. Source of Information: Patient Exam Limitations: No Limitations History of Present Illness Date Seen by Provider: May 15, 2022 Time Seen by Provider: 11:26 Initial Comments This is an 87-year-old male who presented to the ER via [facility] from home for complaint of hypotension and a rash on his right lower extremity. Upon arrival patient answers questions with "no". He is unable to elaborate on any response that brought him in. He does have significant history of dementia. When son (caregiver) arrived states that patient has a rash that started in his groin region and has progressively spread down his right leg to the right side of his lower back and his right shoulder. They initially thought it was from his diaper rash from urinary incontinence however that area has improved significantly and the rash has continued to spread. Son states that he has been having really good days and will normally ambulate independently with a walker and gets around by himself very well. However today he is significantly weaker, more confused, has low BP 80's/50's at home, and he was unable to get up out of bed today, which is unusual for him. His son is his primary career development consultant and DPOA. No fevers, nausea, vomiting, diarrhea, c/o headaches, known falls. No known COVID exposure. Allergies and Home Medications Allergies Coded Allergies: NKANo Known Allergies (Verified Allergy, Unknown, 03/23/06) Patient Home Medication List Home Medication List Reviewed: Yes Allopurinol (Allopurinol) 100 Mg Tablet, 100 MG PO DAILY, (Reported) Entered as Reported by: JACK WALKER on 07/14/15 0833 Last Action: Reviewed Apixaban (Eliquis) 5 Mg Tablet, 5 MG PO BID, (Reported) Entered as Reported by: FEDE HARVEY on 05/16/22 9923 Last Action: Reviewed Atorvastatin Calcium (Atorvastatin Calcium) 40 Mg Tablet, 40 MG PO DAILY, (Reported) Entered as Reported by: FEDE HARVEY on 05/16/22 134 Last Action: Reviewed Losartan Potassium (Losartan Potassium) 50 Mg Tablet, 50 MG PO DAILY, (Reported) Entered as Reported by: FEDE HARVEY on 6/211348 Last Action: Reviewed Methylcellulose (Fiber) 500 Mg Tablet, 500 MG PO BID, (Reported) Entered as Reported by: FEDE HARVEY on 05/16/221348 Last Action: Reviewed Nystatin (Nystatin) 100,000 Unit/Gram Cream..g., 15 GM TP BID Prescribed by: PADMINI ROSADO on 05/16/22 1208 Oxybutynin Chloride (Oxybutynin Chloride) 5 Mg Tablet, 5 MG PO DAILY, (Reported) Entered as Reported by: JACK WALKER on 07/14/15832 Last Action: Reviewed Vit C/E/Zn/Coppr/Lutein/Zeaxan (Preservision Areds 2 Softgel) 250MG-90MG Capsu le, 1 EACH PO BID, (Reported) Entered as Reported by: FEDE HARVEY on 05/16/221348 Last Action: Reviewed Discontinued Medications Acetaminophen with Codeine (Tylenol with Codeine #3 Tablet) 1 Each Tablet, 1 EACH PO Q4H PRN for COUGH Discontinued Reason: No Longer Taking Prescribed by: DA KAUFMAN on 11/04/181612 Last Action: Discontinued Amiodarone HCl (Amiodarone HCl) 200 Mg Tablet, 200 MG PO DAILY, (Reported) Discontinued Reason: No Longer Taking Entered as Reported by: JACK WALKER on 07/14/15832 Last Action: Discontinued Apixaban (Eliquis) 5 Mg Tablet, 5 MG PO BID Discontinued Reason: No Longer Taking Prescribed by: GUNNER JUAREZ on 10/02/15 1052 Last Action: Discontinued Atorvastatin Calcium (Lipitor) 40 Mg Tablet, 40 MG PO DAILY Discontinued Reason: No Longer Taking Prescribed by: FIDELINA HEARN on 10/04/15 0910 Last Action: Discontinued Cefuroxime Axetil (Cefuroxime) 250 Mg Tablet, 250 MG PO BID Discontinued Reason: No Longer Taking Prescribed by: DA KAUFMAN on 11/04/18 1613 Last Action: Discontinued Docusate Sodium (Stool Softener) 100 Mg Tablet, 100 MG PO BID PRN for CONSTIPATION, (Reported) Discontinued Reason: No Longer Taking Entered as Reported by: VERONICA BUSTILLO on 05/20/10 6420 Last Action: Discontinued Enalapril Maleate (Enalapril Maleate) 5 Mg Tablet, 5 MG PO DAILY Discontinued Reason: No Longer Taking Prescribed by: GUNNER JUAREZ on 10/02/15 1031 Last Action: Discontinued Losartan Potassium (Losartan Potassium) 25 Mg Tablet, 25 MG PO DAILY, (Reported) Discontinued Reason: No Longer Taking Entered as Reported by: JACK WALKER on 07/14/1533 Last Action: Discontinued Lubiprostone (Amitiza) 24 Mcg Capsule, 24 MCG PO DAILY Discontinued Reason: No Longer Taking Prescribed by: GUNNER JUAREZ on 10/03/15 1246 Last Action: Discontinued Naproxen Sodium (Aleve) 220 Mg Tablet, 220 MG PO Q8H PRN for PAIN, (Reported) Discontinued Reason: No Longer Taking Entered as Reported by: JACK WALKER on 07/14/15 08 Last Action: Discontinued Omeprazole (Omeprazole) 10 Mg Capsule.dr, 10 MG PO DAILY Discontinued Reason: No Longer Taking Prescribed by: GUNNER JUAREZ on 10/02/15 1024 Last Action: Discontinued Trazodone HCl (Trazodone HCl) 50 Mg Tablet, 50 MG PO HS Discontinued Reason: No Longer Taking Prescribed by: GUNNER JUAREZ on 10/02/15 1020 Last Action: Discontinued Vit C/E/Zn/Coppr/Lutein/Zeaxan (Preservision Areds 2 Softgel) 1 Each Capsule, 1 CAP PO BID, (Reported) Discontinued Reason: No Longer Taking Entered as Reported by: JACK WALKER on 07/14/15832 Last Action: Discontinued Review of Systems Review of Systems Constitutional: no symptoms reported EENTM: no symptoms reported Respiratory: no symptoms reported Cardiovascular: no symptoms reported Gastrointestinal: no symptoms reported Genitourinary: no symptoms reported Musculoskeletal: muscle weakness Skin: see HPI Psychiatric/Neurological: Weakness, Other (Dementia ) Hematologic/Lymphatic: No Symptoms Reported Immunological/Allergic: no symptoms reported Past Wdvboag-Thsweq-Bvsvru Hx Patient Social History Tobacco Use?: No Use of E-Cig and/or Vaping dev: No Substance use?: No Alcohol Use?: Yes Alcohol Frequency: Rarely Pt feels they are or have been: No Immunizations Up To Date Tetanus Booster (TDap): Unknown Seasonal Allergies Seasonal Allergies: No Past Medical History Surgeries: Yes (kidney, liver lac. 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 0oz. [id number]; 21.00 BMI Method:Estimated General Appearance: No Apparent Distress, WD/WN, Anxious Eyes: Bilateral Eye Normal Inspection, Bilateral Eye PERRL, Bilateral Eye EOMI HEENT: PERRL/EOMI, TMs Normal, Normal ENT Inspection, Pharynx Normal (no petechia appreciated ) Neck: Full Range of Motion, Normal Inspection, Non Tender, Supple Respiratory: Lungs Clear, Normal Breath Sounds, No Accessory Muscle Use, No Respiratory Distress Cardiovascular: Regular Rate, Rhythm (paced ), No Gallop, Systolic Murmur Gastrointestinal: Normal Bowel Sounds, No Organomegaly, Non Tender, Soft Genital/Rectal: Other (yeast in folds of buttoks and groin.) Back: No Vertebral Tenderness, Other (palpable purpura right scaplula ) Extremity: Other (Right upper thigh: palpable purpura and hemorrhagic bullous lesions of variable size) Neurologic/Psychiatric: Alert (, anxious ), No Motor/Sensory Deficits, Normal Mood/Affect Skin: Normal Color, Warm/Dry, Rash Focused Exam Lactate Level 05/15/22 12:44: Lactic Acid Level 1.37 Lactic Acid Level Laboratory Tests Test 05/15/22 12:44 Lactic Acid Level 1.37 MMOL/L (0.50-2.00) Progress/Results/Core Measures Suspected Sepsis SIRS Temperature: Pulse: 97 Respiratory Rate: 29 Laboratory Tests 05/15/22 12:44: White Blood Count 6.5 Blood Pressure 92 /57 Mean: 69 05/15/22 12:44: Lactic Acid Level 1.37 Laboratory Tests 05/15/22 12:44: Creatinine 0.77, INR Comment 1.3, Platelet Count 109L, Total Bilirubin 1.0 Results/Orders Lab Results Laboratory Tests Test 05/15/22 12:44 05/15/22 13:58 05/15/22 14:36 Range/Units White Blood Count 6.5 4.3-11.0 10^3/uL Red Blood Count 3.78 L 4.30-5.52 10^6/uL Hemoglobin 11.7 L 13.3-17.7 g/dL Hematocrit 34 L 40-54 % Mean Corpuscular Volume 91 80-99 fL Mean Corpuscular Hemoglobin 31 25-34 pg Mean Corpuscular Hemoglobin Concent 34 32-36 g/dL Red Cell Distribution Width 13.1 10.0-14.5 % Platelet Count 109 L 130-400 10^3/uL Mean Platelet Volume 11.2 9.0-12.2 fL Immature Granulocyte % (Auto) 0 % Neutrophils (%) (Auto) 65 42-75 % Lymphocytes (%) (Auto) 24 12-44 % Monocytes (%) (Auto) 10 0-12 % Eosinophils (%) (Auto) 0 0-10 % Basophils (%) (Auto) 0 0-10 % Neutrophils # (Auto) 4.2 1.8-7.8 10^3/uL Lymphocytes # (Auto) 1.5 1.0-4.0 10^3/uL Monocytes # (Auto) 0.6 0.0-1.0 10^3/uL Eosinophils # (Auto) 0.0 0.0-0.3 10^3/uL Basophils # (Auto) 0.0 0.0-0.1 10^3/uL Immature Granulocyte # (Auto) 0.0 0.0-0.1 10^3/uL Percent Immature Platelet Fraction 6.0 0.0-7.6 % Erythrocyte Sedimentation Rate 22 0-30 MM/HR Prothrombin Time 16.5 H 12.2-14.7 SEC INR Comment 1.3 0.8-1.4 Activated Partial Thromboplast Time 39 H 24-35 SEC Sodium Level 135 135-145 MMOL/L Potassium Level 3.9 3.6-5.0 MMOL/L Chloride Level 102 98-107 MMOL/L Carbon Dioxide Level 23 21-32 MMOL/L Anion Gap 10 5-14 MMOL/L Blood Urea Nitrogen 11 7-18 MG/DL Creatinine 0.77 0.60-1.30 MG/DL Estimat Glomerular Filtration Rate 86 BUN/Creatinine Ratio 14 Glucose Level 95 70-105 MG/DL Lactic Acid Level 1.37 0.50-2.00 MMOL/L Calcium Level 8.0 L 8.5-10.1 MG/DL Corrected Calcium 8.6 8.5-10.1 MG/DL Total Bilirubin 1.0 0.1-1.0 MG/DL Aspartate Amino Transf (AST/SGOT) 26 5-34 U/L Alanine Aminotransferase (ALT/SGPT) 17 0-55 U/L Alkaline Phosphatase 72 40-136 U/L C-Reactive Protein High Sensitivity 0.97 H 0.00-0.50 MG/DL Total Protein 5.3 L 6.4-8.2 GM/DL Albumin 3.3 3.2-4.5 GM/DL Procalcitonin 0.04 <0.10 NG/ML Influenza Type A (RT-PCR) Not Detected Not Detecte Influenza Type B (RT-PCR) Not Detected Not Detecte SARS-CoV-2 RNA (RT-PCR) Not Detected Not Detecte Urine Color YELLOW Urine Clarity CLEAR Urine pH 6.0 5-9 Urine Specific [place] 1.025 H 1.016-1.022 Urine Protein TRACE H NEGATIVE Urine Glucose (UA) NEGATIVE NEGATIVE Urine Ketones NEGATIVE NEGATIVE Urine Nitrite NEGATIVE NEGATIVE Urine Bilirubin NEGATIVE NEGATIVE Urine Urobilinogen 2.0 < = 1.0 MG/DL Urine Leukocyte Esterase NEGATIVE NEGATIVE Urine RBC (Auto) NEGATIVE NEGATIVE Urine RBC RARE /HPF Urine WBC NONE /HPF Urine Squamous Epithelial Cells RARE /HPF Urine Crystals NONE /LPF Urine Bacteria NEGATIVE /HPF Urine Casts PRESENT /LPF Urine Hyaline Casts RARE /LPF Urine Mucus NEGATIVE /LPF Urine Culture Indicated NO Micro Results Microbiology 05/15/22 Urine Culture - Final, Complete NO GROWTH 05/15/22 Blood Culture - Preliminary, Resulted No growth 05/15/22 Blood Culture - Preliminary, Resulted No growth My Orders Orders - EZEKIEL SÁNCHEZ APRN Cbc With Automated Diff (05/15/22 11:24) Comprehensive Metabolic Panel (05/15/22 11:24) Blood Culture (05/15/22 11:24) Sputum Culture (05/15/22 11:24) Urinalysis (05/15/22 11:24) Urine Culture (05/15/22 11:24) Protime With Inr (05/15/22 11:24) Partial Thromboplastin Time (05/15/22 11:24) Chest 1 View, Ap/Pa Only (05/15/22 11:24) Ed Iv/Invasive Line Start (05/15/22 11:24) Vital Signs Adult Sepsis Patie Q15M (05/15/22 11:24) O2 (05/15/22 11:24) Remove Rings In Anticipation O (05/15/22 11:24) Lactic Acid Analyzer (05/15/22 11:24) Ns Iv 1000 Ml (Sodium Chloride 0.9%) (05/15/22 11:30) Hs C Reactive Protein (05/15/22 11:31) Erythrocyte Sedimentation Rate (05/15/22 11:31) Procalcitonin (Pct) (05/15/22 11:31) Ct Head/Cervical Spine Wo (05/15/22 13:43) Covid 19 Inhouse Test (05/15/22 13:47) Influenza A And B By Pcr (05/15/22 13:47) Titus Cath (05/15/22 14:30) Lorazepam Injection (Ativan Injection) (05/15/22 16:30) Vital Signs/I&O 05/15/22 10:59 Pulse 97 Resp 29 B/P (MAP) 92/57 (69) Pulse Ox 96 O2 Delivery Room Air Capillary Refill : Less Than 3 Seconds Blood Pressure Mean: 69 Progress Note : Progress Note Orders placed for sepsis work-up, with hypotension, added CRP, and ESR as his 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 He is lying quietly in bed. Orders given for liter of NS. Son arrived shortly after patient arrived and was able to present medication list. He is on a blood thinner Eliquis twice daily. Although son does not know of any falls other than the other day when he "slid to the floor", but states that he may have had a fall that he is unaware of. Patient is presenting with altered mental status so we will go ahead and do a CT scan of his head and cervical spine. CT head and cervical spine are unremarkable. Patient's labs are relatively unremarkable. However with his increasing weakness, dehydration, altered mental status, would like to go ahead and observe. Reviewed case with Dr. Rosado, he accepted admission. Patient was having significant anxiety was attempted to pull on his IV and Titus catheter, he was given Ativan to help him calm. He will be admitted to the medical floor with a sitter for safety. Plan of care reviewed with patient's son and he is agreeable with plan. States that patient is a DNR and has advanced directives at home. We will go ahead and trial some methylprednisone to see if this will help with his vasculitis type rash. Given 125 mg in the ER and orders placed for 90 mg IV push every 8 hours. Diagnostic Imaging Diagonstic Imaging: Xray Plain Films/CT/US/NM/MRI: chest Comments [facility], [place] NAME: FIDELINA RUEDA [facility] REC#: [id number] PT STATUS: REG ER : 1935 PHYSICIAN: EZEKIEL SÁNCHEZ DAIRY SCIENCE TEACHER ADMIT DATE: 05/15/22/ER Signed Date of Exam:05/15/22 CHEST 1 VIEW, AP/PA ONLY CLINICAL INDICATION: Patient with sepsis. EXAM: Portable chest x-ray, upright view. COMPARISON: Chest x-ray dated 11/04/2018. FINDINGS: The cardiac pacemaker is again seen overlying the left chest with leads projecting over the heart. There is a stable calcified granuloma overlying the right lower lung field. There is concern for a small left pleural effusion or pleural thickening. There is mild bibasilar atelectasis. There is no definite lung infiltrate. The pulmonary vasculature and cardiac silhouette are within normal limits. There are degenerative spurs involving the thoracic spine. IMPRESSION: 1: There is concern for interval development of a small left pleural effusion. There is interval mild bibasilar atelectasis. There is no definite lung infiltrate. 2: The remainder of this exam shows no significant interval change. Dictated by: Dictated on workstation # [id number] Dict: 05/15/22 1235 Trans: 05/15/22 1717 [id number] Interpreted by: ISABELLA FOLEY MD Electronically signed by: ISABELLA FOLEY MD 05/15/22 1717 Diagonstic Imaging: CT Comments [facility] [place] NAME: FIDELINA RUEDA [facility] REC#: [id number] PT STATUS: REG ER : 1935 PHYSICIAN: EZEKIEL SÁNCHEZ APRN ADMIT DATE: 05/15/22/ER Signed Date of Exam:05/15/22 CT HEAD/CERVICAL SPINE WO PROCEDURE: CT head and CT cervical spine without contrast. TECHNIQUE: Multiple contiguous axial images were obtained through the brain and cervical spine without the use of intravenous contrast. Sagittal and coronal reformations through the cervical spine were then performed. Auto Exposure Controls were utilized during the CT exam to meet ALARA standards for radiation dose reduction. INDICATION: Hypotension. Correlation is made with prior head CT from 11/04/2018. CT HEAD: The ventricles and sulci are prominent consistent with cerebral volume loss. No sulcal effacement or midline shift is identified. No acute intraaxial or extraaxial hemorrhage is detected. Cisterns are patent. Visualized paranasal sinuses appear clear. 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 IMPRESSION: Chronic changes. No acute intracranial process is detected. CT CERVICAL SPINE: Curvature and alignment is normal. There is multilevel degenerative disc disease with significant disc space narrowing and spurring extending from C3 to C4 through C6-C7 levels. There is multilevel facet arthropathy as well. No fractures are identified. Prevertebral tissues are within normal limits. Odontoid is intact. IMPRESSION: Cervical spondylosis. No acute bony abnormality is detected. Dictated by: Dictated on workstation # [id number] Dict: 05/15/22 1505 Trans: 05/15/22 1559 [facility] [id number] Interpreted by: MALISSA SOARES MD Electronically signed by: MALISSA SOARES MD 05/15/22 1559 Departure Communication (Admissions) Time/Spoke to Admitting Phy: 16:50 Dr. Rosado Impression Primary Impression: Mental status alteration Additional Impression: Generalized weakness Disposition: ADMITTED INPATIENT Condition: Stable Admissions Decision to Admit Reason: Admit from ER (General) Decision to Admit/Date: May 15, 2022 Time/Decision to Admit Time: 17:00 Departure-Patient Inst. Referrals: FIDELINA HEARN MD (PCP/Family) Primary Care Physician Scripts Nystatin (Nystatin) 100,000 Unit/Gram Cream..g. 15 GM TP BID for 10 Days, #1 EA Prov: PADMINI ROSADO MD 05/16/22 EZEKIEL SÁNCHEZ DAIRY SCIENCE TEACHER May 15, 2022 11:26
[2022-05-15] MEDS ORDERED: NS IV 1000 ML 1,000 ML IV SCH (11:30)
--- NOTE | 2022-05-15 12:43 | Diagnostic Imaging Report ---
CLINICAL INDICATION: Patient with sepsis. EXAM: Portable chest x-ray, upright view. COMPARISON: Chest x-ray dated 11/04/2018. FINDINGS: The cardiac pacemaker is again seen overlying the left chest with leads projecting over the heart. There is a stable calcified granuloma overlying the right lower lung field. There is concern for a small left pleural effusion or pleural thickening. There is mild bibasilar atelectasis. There is no definite lung infiltrate. The pulmonary vasculature and cardiac silhouette are within normal limits. There are degenerative spurs involving the thoracic spine. IMPRESSION: 1: There is concern for interval development of a small left pleural effusion. There is interval mild bibasilar atelectasis. There is no definite lung infiltrate. 2: The remainder of this exam shows no significant interval change. Dictated by: Dictated on workstation # [id number]
[2022-05-15 13:04] LABS: BASOPHILS % (AUTO) 0 % (0-10); EOSINOPHILS % (AUTO) 0 % (0-10); MEAN PLATELET VOLUME 11.2 fL (9.0-12.2); NEUTROPHILS # (AUTO) 4.2 10^3/uL (1.8-7.8)
[2022-05-15 13:06] LABS: HEMATOCRIT 34 % (40-54); HEMOGLOBIN 11.7 g/dL (13.3-17.7); LYMPHOCYTES # (AUTO) 1.5 10^3/uL (1.0-4.0); LYMPHOCYTES % (AUTO) 24 % (12-44); MEAN CORPUSCULAR HEMOGLOBIN 31 pg (25-34); MEAN CORPUSCULAR HGB CONC 34 g/dL (32-36); MEAN CORPUSCULAR VOLUME 91 fL (80-99); MONOCYTES # (AUTO) 0.6 10^3/uL (0.0-1.0); MONOCYTES % (AUTO) 10 % (0-12); NEUTROPHILS % (AUTO) 65 % (42-75); WHITE BLOOD COUNT 6.5 10^3/uL (4.3-11.0)
[2022-05-15 13:08] LABS: PLATELET COUNT 109 10^3/uL (130-400)
[2022-05-15 13:12] LABS: ALBUMIN 3.3 GM/DL (3.2-4.5); POTASSIUM 3.9 MMOL/L (3.6-5.0)
[2022-05-15 13:14] LABS: TOTAL PROTEIN 5.3 GM/DL (6.4-8.2)
[2022-05-15 13:17] LABS: INR 1.3 (0.8-1.4); PROTHROMBIN TIME PATIENT 16.5 SEC (12.2-14.7)
[2022-05-15 13:18] LABS: CREATININE SERUM 0.77 MG/DL (0.60-1.30)
[2022-05-15 13:25] LABS: ERYTHROCYTE SEDIMENTATION RATE 22 MM/HR (0-30)
[2022-05-15 14:38] LABS: BILIRUBIN,URINE NEGATIVE (NEGATIVE); CLARITY,URINE CLEAR; COLOR,URINE YELLOW; GLUCOSE, URINE (UA) NEGATIVE (NEGATIVE); KETONES,URINE NEGATIVE (NEGATIVE); LEUKOCYTE ESTERASE ,URINE NEGATIVE (NEGATIVE); NITRITE,URINE NEGATIVE (NEGATIVE); PROTEIN,URINE TRACE (NEGATIVE)
[2022-05-15 14:50] LABS: BACTERIA,URINE NEGATIVE /HPF; HYALINE CASTS, URINE RARE /LPF; RBC,URINE RARE /HPF; SQUAMOUS EPITHELIAL CELL,UR RARE /HPF
--- NOTE | 2022-05-15 15:11 | Diagnostic Imaging Report ---
PROCEDURE: CT head and CT cervical spine without contrast. TECHNIQUE: Multiple contiguous axial images were obtained through the brain and cervical spine without the use of intravenous contrast. Sagittal and coronal reformations through the cervical spine were then performed. Auto Exposure Controls were utilized during the CT exam to meet ALARA standards for radiation dose reduction. INDICATION: Hypotension. Correlation is made with prior head CT from 11/04/2018. CT HEAD: The ventricles and sulci are prominent consistent with cerebral volume loss. No sulcal effacement or midline shift is identified. No acute intraaxial or extraaxial hemorrhage is detected. Cisterns are patent. Visualized paranasal sinuses appear clear. 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 IMPRESSION: Chronic changes. No acute intracranial process is detected. CT CERVICAL SPINE: Curvature and alignment is normal. There is multilevel degenerative disc disease with significant disc space narrowing and spurring extending from C3 to C4 through C6-C7 levels. There is multilevel facet arthropathy as well. No fractures are identified. Prevertebral tissues are within normal limits. Odontoid is intact. IMPRESSION: Cervical spondylosis. No acute bony abnormality is detected. Dictated by: Dictated on workstation # [id number]
[2022-05-15] MEDS ORDERED: LORazepam INJ 2 MG/ML (ATIVAN) VIAL IVP ONE (16:30)
[2022-05-15] MEDS ORDERED: methylPREDNISolone 125 MG (Solu-MEDROL) VIAL IM ONE (17:00)
[2022-05-15] MEDS ORDERED: methylPREDNISolone 125 MG (Solu-MEDROL) VIAL IVP ONE (17:30)
[2022-05-15] MEDS ORDERED: NS IV 1000 ML 1,000 ML ONE (18:56)
[2022-05-15] MEDS ORDERED: RT-ALBUTEROL SULF 2.5 MG/3 ML PRE-MIX VIAL INH PRN (20:45)
[2022-05-15] MEDS ORDERED: LORazepam INJ 2 MG/ML (ATIVAN) VIAL IV PRN (22:30)
[2022-05-15] MEDS ORDERED: ACETAMINOPHEN 325 MG TABLET PO PRN (22:30)
[2022-05-15] MEDS ORDERED: ONDANSETRON 4 MG/2 ML (SDV) Z0FRAN IV PRN (22:30)
[2022-05-16] VITALS: BP 138/88
[2022-05-16 04:00] VITALS: BP 151/99
[2022-05-16 06:31] LABS: BASOPHILS % (AUTO) 0 % (0-10); EOSINOPHILS % (AUTO) 0 % (0-10); HEMOGLOBIN 11.9 g/dL (13.3-17.7); MONOCYTES # (AUTO) 0.1 10^3/uL (0.0-1.0)
[2022-05-16 06:33] LABS: HEMATOCRIT 35 % (40-54); LYMPHOCYTES # (AUTO) 0.7 10^3/uL (1.0-4.0); LYMPHOCYTES % (AUTO) 15 % (12-44); MEAN CORPUSCULAR HEMOGLOBIN 31 pg (25-34); MEAN CORPUSCULAR HGB CONC 34 g/dL (32-36); MEAN CORPUSCULAR VOLUME 91 fL (80-99); MEAN PLATELET VOLUME 11.3 fL (9.0-12.2); MONOCYTES % (AUTO) 2 % (0-12); NEUTROPHILS # (AUTO) 3.8 10^3/uL (1.8-7.8); NEUTROPHILS % (AUTO) 83 % (42-75); PLATELET COUNT 105 10^3/uL (130-400); WHITE BLOOD COUNT 4.5 10^3/uL (4.3-11.0)
[2022-05-16] MEDS: methylPREDNISolone 125 MG (Solu-MEDROL) VIAL IV SCH ×2 (06:34→09:00)
[2022-05-16] MEDS: NS IV 1000 ML 1,000 ML IV SCH ×2 (06:34→08:30)
[2022-05-16 06:40] LABS: CALCIUM 8.1 MG/DL (8.5-10.1)
[2022-05-16 06:44] LABS: CREATININE SERUM 0.68 MG/DL (0.60-1.30)
[2022-05-16 08:00] VITALS: BP 169/105
[2022-05-16] MEDS ORDERED: NYSTATIN CREAM (MYCOSTATIN) 30 GM TUBE TP SCH (09:00)
[2022-05-16] MEDS ORDERED: MICONAZOLE 2% POWDER (DESENEX AF) 90 GM TOP SCH (09:00)
[2022-05-16 11:00] VITALS: BP 116/74
[2022-05-16] MEDS ORDERED: NYST15CR TP (12:08)
[2022-05-16] MEDS ORDERED: LOSA50TA63 PO (13:49)
[2022-05-16] MEDS ORDERED: METH-336 PO (13:49)
[2022-05-16] MEDS ORDERED: VIT1CAPS44 PO (13:49)
[2022-05-16] MEDS ORDERED: ATOR40TA70 PO (13:49)
[2022-05-16] MEDS ORDERED: APIX5TAB PO (13:49)
--- NOTE | 2022-05-16 14:46 | Occ Therapy Progress Note ---
Therapy Progress Note OT orders received and chart was reviewed. OT spoke with pt's nurse who states that pt is at baseline for adls and has a possible discharge for later today. Family/pt are requesting outpatient PT services only. OT will discharge. Anca Arias OT May 16, 2022 14:46
--- NOTE | 2022-05-16 14:51 | Physical Therapy Evaluation ---
PT Evaluation-General Medical Diagnosis Admission Date May 15, 2022 at 16:54 Medical Diagnosis: HTN; DM; GERD; CKD; Onset Date: May 15, 2022 Therapy Diagnosis Therapy Diagnosis: Gait deficit, strength deficit Height/Weight Height (Feet): 5 Height (Inches): 10.00 Weight (Pounds): 170 Weight (Ounces): 0 Precautions Precautions/Isolations: Fall Prevention, Pressure Ulcer Weight Bear Status Right Lower Extremity: Right Full Weight Bearing Left Lower Extremity: Left Full Weight Bearing Referral Physician: Dr. Cooper Reason for Referral: Evaluation/Treatment Medical History Pertinent Medical History: GERD, HTN, OA Reviewed History: Yes Social History Home: Single Level Current Living Status: Other Family Entry Into Home: Stairs With Railing PT Steps Into Home: 4 Prior Prior Level of Function SCALE: Activities may be completed with or without assistive devices. 4-Cnxhdbegdg-zyistwb completes the activity by him/herself with no assistance from a helper. 5-Set-up or Clean-up Assistance-helper sets up or cleans up; patient completes activity. [place] assists only prior to or following the activity. 4-Supervision or Touching Assistance-helper provides verbal cues and/or touching/steadying and/or contact guard assistance as patient completes activity. Assistance may be provided throughout the activity or intermittently. 3-Partial/Moderate Assistance-helper does LESS THAN HALF the effort. [place] lifts, holds or supports trunk or limbs, but provides less than half the effort. 2-Substantial/Maximal Assistance-helper does MORE THAN HALF the effort. [place] lifts or holds trunk or limbs and provides more than half the effort. 0-Aymewvibh-ojyogy does ALL the effort. Patient does none of the effort to complete the activity. Or, the assistance of 2 or more helpers is required for the patient to complete the activity. If activity was not attempted, code reason: 7-Patient Refused. 9-Not Applicable-not attempted and the patient did not perform the activity before the current illness, exacerbation or injury. 10-Not Attempted due to Environmental Limitations-(lack of equipment, weather restraints, etc.). 88-Not Attempted due to Medical Conditions or Safety Concerns. Bed Mobility: 6 Transfers (B,C,W/C): 6 Gait: 6 Stairs: 4 Indoor Mobility (Ambulation): Independent Stairs: Needed Some Help Prior Devices Use: Walker PT Evaluation-Current Subjective Patient lying supine in bed upon PT arrival, agreeable to treatment. Patients son provides most of the history as he reports patient has dementia. Reports someone is always with the patient, however may not be directly with him at all times. However someone is always home. Objective Patient Orientation: Person, Place Attachments: Titus Catheter, IV ROM/Strength ROM Lower Extremities WFLs to PROM all available plans Strength Lower Extremities 3+/5 all planes bilaterally Sensory Vision: Functional Hearing: Functional Sensation Right Lower Extremit: Intact Sensation Left Lower Extremity: Intact Transfers Roll Left to Right (QC): 3 Sit to Lying (QC): 3 Lying to Sitting/Side of Bed(Q: 3 Sit to Stand (QC): 3 Chair/Nuw-fo-Gtqoo Xfer(QC): 3 Gait Does the Patient Walk?: Yes Mode of Locomotion: Walk Anticipated Mode of Locomotion: Walk Walk 10 feet (QC): 4 Walk 50 ft with 2 Turns(QC): 4 Distance: 120 Gait Assistive Device: FWW Comments/Gait Description Patient ambulates with a step to gait pattern on the right LE. He tends to keep the FWW too far from his body and his left foot continuously hits the front of his left foot on the left FWW rear leg. Patient requires frequent verbal cues for safety, progression, posture and control of FWW, however patient son reports "This is typically how he walks." Balance Sitting Static: Fair Sitting Dynamic: Fair Standing Static: Fair Standing Dynamic: Poor Assessment/Needs Patient tolerated treatment fair. Demonstrates good potential to progress and good prognosis with continued PT. At this time the patient appears to be at baseline for Gait, bed mobility, and transfers, however strength loss is still significant and limits overall function. Patient ambulates with a step to gait pattern on the right LE. He tends to keep the FWW too far from his body and his left foot continuously hits the front of his left foot on the left FWW rear leg. Patient requires frequent verbal cues for safety, progression, posture and control of FWW, however patient son reports "This is typically how he walks." Patient in bed post treatment with all needs met, nursing notified, call light in hand, and son in the room. Patient would benefit from [facility] PT or outpatient PT to improve patients strength, balance, posture and tolerance to function. Rehab Potential: Fair PT Plan Problem List Problem List: Activity Tolerance, Functional Strength, Safety, Balance, Gait, Transfer, Bed Mobility, ROM Treatment/Plan Treatment Plan: Discontinue PT Treatment Duration: May 16, 2022 Frequency: Patient and/or Family Agrees t: Yes Patients son reports they would like him to be D\\C him this evening. Safety Risks/Education Patient Education: Gait Training, Transfer Techniques Teaching Recipient: Patient, Family Teaching Methods: Discussion Response to Teaching: Verbalize Understanding Time/GCodes Time In: 1138 Time Out: 1203 Total Billed Treatment Time: 25 Total Billed Treatment Visit, Brianne PARADA JOHN A PT May 16, 2022 14:51
--- NOTE | 2022-05-16 18:58 | Discharge Summary ---
Discharge Summary Hospital Course Problems/Dx: (1) Mental status alteration Status: Acute (2) Dehydration Status: Acute (3) Candidal skin infection Status: Acute (4) Dementia Status: Chronic Hospital Course Date of Admission: May 15, 2022 at 16:54 Admission Diagnosis : Altered mental status, dementia, dehydration, candidal skin infection Family Physician/Provider: Yair Martinez MD Date of Discharge: 05/16/22 Discharge Diagnosis: Altered mental status, dementia, dehydration, candidal skin infection Hospital Course: Yair Hernandez is an 87 year old male with dementia who presented with altered mental status. He was found to be dehydrated and responded well after IV fluids. He also had a candidal skin infection and was started Nystatin. He worked well with physical therapy. He was set up with outpatient therapy. He was discharged home in stable condition with his son. Labs and Pending Lab Test: Laboratory Tests 05/16/22 05:55: White Blood Count 4.5, Red Blood Count 3.83L, Hemoglobin 11.9L, Hematocrit 35L, Mean Corpuscular Volume 91, Mean Corpuscular Hemoglobin 31, Mean Corpuscular Hemoglobin Concent 34, Red Cell Distribution Width 12.8, Platelet Count 105L, Mean Platelet Volume 11.3, Immature Granulocyte % (Auto) 0, Neutrophils (%) (Auto) 83H, Lymphocytes (%) (Auto) 15, Monocytes (%) (Auto) 2, Eosinophils (%) (Auto) 0, Basophils (%) (Auto) 0, Neutrophils # (Auto) 3.8, Lymphocytes # (Auto) 0.7L, Monocytes # (Auto) 0.1, Eosinophils # (Auto) 0.0, Basophils # (Auto) 0.0, Immature Granulocyte # (Auto) 0.0, Percent Immature Platelet Fraction 5.5, Sodium Level 134L, Potassium Level 4.0, Chloride Level 104, Carbon Dioxide Level 21, Anion Gap 9, Blood Urea Nitrogen 12, Creatinine 0.68, Estimat Glomerular Filtration Rate 89, BUN/Creatinine Ratio 18, Glucose Level 165H, Calcium Level 8.1L Microbiology 05/15/22 Urine Culture - Final, Complete NO GROWTH Home Meds Active Nystatin 100,000 Unit/Gram Cream..g. 15 Gm TP BID 10 Days Reported Eliquis (Apixaban) 5 Mg Tablet 5 Mg PO BID Preservision Areds 2 Softgel (Vit C/E/Zn/Coppr/Lutein/Zeaxan) 250MG-90MG Capsule 1 Each PO BID Fiber (Methylcellulose) 500 Mg Tablet 500 Mg PO BID Atorvastatin Calcium 40 Mg Tablet 40 Mg PO DAILY Losartan Potassium 50 Mg Tablet 50 Mg PO DAILY Allopurinol 100 Mg Tablet 100 Mg PO DAILY Oxybutynin Chloride 5 Mg Tablet 5 Mg PO DAILY Assessment/Pt Instructions See instructions Discharge Planning: >30 minutes discharge planning Discharge Instructions Discharge Diet: No Restrictions Activity as Tolerated: Yes Discharge Physical Examination Vital Signs Vital Signs Date Time Temp Pulse Resp B/P (MAP) Pulse Ox O2 Delivery O2 Flow Rate FiO2 05/16/22 16:00 05/16/22 11:39 37.2 05/16/22 11:00 86 90 Room Air 05/15/22 20:33 21 05/15/22 18:40 16 General Appearance: No Apparent Distress, WD/WN HEENT: PERRL/EOMI, Pharynx Normal Respiratory: Lungs Clear, Normal Breath Sounds, No Respiratory Distress Cardiovascular: Regular Rate, Rhythm, No Edema, No Murmur Gastrointestinal: Normal Bowel Sounds, Non Tender, Soft Extremity: Normal Inspection, No Pedal Edema Skin: Normal Color, Warm/Dry Neurologic/Psychiatric: Alert, Normal Mood/Affect Allergies: Coded Allergies: NKANo Known Allergies (Verified Allergy, Unknown, 03/23/06) Discharge Summary Date of Admission May 15, 2022 at 16:54 Date of Discharge May 16, 2022 at 16:20 Discharge Date: May 16, 2022 Discharge Time: 16:20 Admission Diagnosis Altered mental status, dehydration, dementia, candidal skin infection Discharge Diagnosis (1) Mental status alteration Status: Acute (2) Dehydration Status: Acute (3) Dementia Status: Chronic (4) Candidal skin infection Status: Acute PADMINI ROSADO MD May 16, 2022 18:58
== END 2022-05-16 16:20 | disposition home or self-care (01) | DRG 607 ==
LOC: EDUNIT# 10:57 → ER 10:58 → ICU 16:54
PROVIDERS: ADMIT Internal Medicine; ATTEND Internal Medicine
DX: B37.2 Candidiasis of skin and nail (principal); E86.0 Dehydration; Z20.822 Contact with and (suspected) exposure to COVID-19; Z95.0 Presence of cardiac pacemaker; I48.91 Unspecified atrial fibrillation; E78.00 Pure hypercholesterolemia, unspecified; I10 Essential (primary) hypertension; Z86.73 Personal history of transient ischemic attack (TIA), and cerebral infarction without residual deficits; M10.9 Gout, unspecified; F03.90 Unspecified dementia, unspecified severity, without behavioral disturbance, psychotic disturbance, mood disturbance, and anxiety
CPT/HCPCS: 36415; 51702; 70450; 71045; 72125; 80048; 80053; 81000; 83605; 84145; 85025; 85610; 85652; 85730; 86141; 87040; 87088; 87636; 94664; 96361; 96374; 96375

== ENCOUNTER 2022-06-22 13:09 | Outpatient (RCR) | payer MEDICARE ==
[~2022-06-22 13:09] MED LIST changes: +ATOR40TA70 PO; +LOSA50TA63 PO; +METH-336 PO; +NYST15CR TP
== END 2022-06-25 | disposition home or self-care (01) ==
PROVIDERS: ATTEND Internal Medicine
DX: R26.89 Other abnormalities of gait and mobility (principal); R53.1 Weakness

== ENCOUNTER 2022-07-18 13:42 | Outpatient (RCR) | payer MEDICARE ==
[~2022-07-18 13:42] MED LIST changes: -NYST15CR TP; +NYST15CR35 TP
== END 2022-07-26 | disposition home or self-care (01) ==
PROVIDERS: ATTEND Internal Medicine
DX: R26.89 Other abnormalities of gait and mobility (principal); R53.1 Weakness

== ENCOUNTER → 2022-08-25 | Outpatient (RCR) | payer MEDICARE | END | disposition home or self-care (01) | PROVIDERS: ATTEND Internal Medicine | DX: R26.89 Other abnormalities of gait and mobility (principal); R53.1 Weakness ==

== ENCOUNTER → 2022-08-30 | Outpatient (CLI) | payer MEDICARE ==
--- NOTE | 2022-08-30 16:09 | Diagnostic Imaging Report ---
INDICATION: Cough. EXAMINATION: PA and lateral views of the chest were obtained. COMPARISON: Study of 02/16/2022. Heart size and pulmonary vascularity are within normal limits. There is mild left basilar atelectasis. No consolidation, pneumothorax or other significant change is seen. IMPRESSION: Mild left basilar atelectasis without other evidence of acute abnormality. Dictated by: Dictated on workstation # [id number]
== END ==
LOC: RAD 15:44
PROVIDERS: ATTEND Internal Medicine
DX: J98.11 Atelectasis (principal)
CPT/HCPCS: 71046

== ENCOUNTER 2022-09-21 13:26 | Outpatient (RCR) | payer MEDICARE | END 2022-09-25 | disposition home or self-care (01) | PROVIDERS: ATTEND Internal Medicine | DX: R26.89 Other abnormalities of gait and mobility (principal); R53.1 Weakness ==

== ENCOUNTER 2022-09-21 14:02 | Emergency (ER) | payer MEDICARE ==
[~2022-09-21] VITALS: Ht 177.8 cm; Wt 82.0 kg
[2022-09-21 14:45] LABS: BASOPHILS % (AUTO) 1 % (0-10); EOSINOPHILS # (AUTO) 0.1 10^3/uL (0.0-0.3); EOSINOPHILS % (AUTO) 1 % (0-10); HEMATOCRIT 40 % (40-54); HEMOGLOBIN 13.2 g/dL (13.3-17.7); LYMPHOCYTES # (AUTO) 1.6 10^3/uL (1.0-4.0); LYMPHOCYTES % (AUTO) 23 % (12-44); MEAN CORPUSCULAR HEMOGLOBIN 29 pg (25-34); MEAN CORPUSCULAR HGB CONC 33 g/dL (32-36); MEAN CORPUSCULAR VOLUME 89 fL (80-99); MEAN PLATELET VOLUME 11.8 fL (9.0-12.2); MONOCYTES # (AUTO) 0.6 10^3/uL (0.0-1.0); MONOCYTES % (AUTO) 9 % (0-12); NEUTROPHILS # (AUTO) 4.5 10^3/uL (1.8-7.8); NEUTROPHILS % (AUTO) 65 % (42-75); PLATELET COUNT 100 10^3/uL (130-400)
[2022-09-21 14:47] LABS: SMEAR SCAN COMMENT YES
[2022-09-21 15:50] LABS: CALCIUM 8.9 MG/DL (8.5-10.1)
[2022-09-21 15:55] LABS: CREATININE SERUM 0.79 MG/DL (0.60-1.30)
--- NOTE | 2022-09-21 16:17 | ED General ---
General Chief Complaint: Dizziness/Syncope Stated Complaint: PASSED OUT/LBP Nursing Triage Note: was at Physical therapy this am and had a syncopal episode. EMS was called and transported to room 7 of ED Source of Information: Patient, Family (son who is DPOA) Exam Limitations: Physical Impairments (dementia) History of Present Illness Date Seen by Provider: Sep 21, 2022 Time Seen by Provider: 14:05 Initial Comments Patient is an 87-year-old male who presents to the emergency room with his son today chief complaint of syncopal episode. Patient has had frequent episodes exactly like this according to the son who is his DPOA. He has lived with him for years and he has episodes where his blood pressure will go down and he will start to have a "spell." He has had extensive work-up by his primary care physician as well as his city maintenance manager with no etiology being found. Son states that he was behind him walking him with his walker as they were going into physical therapy, when he noticed that his father was starting to get clammy and pale. He was able to get him to the floor. Patient has no symptoms prior to the episode. He has significant dementia and has a difficult time with memory. Son states that his blood pressure dropped into the 50s systolic. He states normally he is in the 80s when he has these spells. On my entry into the room his blood pressure is 98 systolic. He is not tachycardic. He does have a pacer. He denies any complaints of chest pain, nausea, headache. No injuries or other musculoskeletal pain. Son takes care of his medications at home. No illness exposures. He did have a big breakfast this morning. Review of systems obtained from the son who was at the bedside. The patient is unable to provide HPI or review of systems due to his dementia. Timing/Duration: 1/2 Hour Severity: Moderate Allergies and Home Medications Allergies Coded Allergies: NKANo Known Allergies (Verified Allergy, Unknown, 09/21/22) Patient Home Medication List Home Medication List Reviewed: Yes Allopurinol (Allopurinol) 100 Mg Tablet, 100 MG PO DAILY, (Reported) Entered as Reported by: JACK WALKER on 07/14/15 0833 Apixaban (Eliquis) 5 Mg Tablet, 5 MG PO BID, (Reported) Entered as Reported by: FEDE HARVEY on 05/16/22 1349 Atorvastatin Calcium (Atorvastatin Calcium) 40 Mg Tablet, 40 MG PO DAILY, (Reported) Entered as Reported by: FEDE HARVEY on 05/16/22 1349 Losartan Potassium (Losartan Potassium) 50 Mg Tablet, 50 MG PO DAILY, (Reported) Entered as Reported by: FEDE HARVEY on 05/16/22 1349 Methylcellulose (Fiber) 500 Mg Tablet, 500 MG PO BID, (Reported) Entered as Reported by: FEDE HARVEY on 05/16/22 1349 Nystatin (Nystatin) 100,000 Unit/Gram Cream..g., 15 GM TP BID Prescribed by: PADMINI ROSADO on 05/16/22 1208 Oxybutynin Chloride (Oxybutynin Chloride) 5 Mg Tablet, 5 MG PO DAILY, (Reported) Entered as Reported by: JACK WALKER on 07/14/15 0833 Vit C/E/Zn/Coppr/Lutein/Zeaxan (Preservision Areds 2 Softgel) 250MG-90MG Capsule, 1 EACH PO BID, (Reported) Entered as Reported by: FEDE HARVEY on 05/16/22 1349 Review of Systems Review of Systems Constitutional: see HPI Unable to obtain review of systems from the patient due to his dementia Past Fjrxeoa-Aryhsq-Mclqvf Hx Patient Social History Tobacco Use?: No Substance use?: No Alcohol Use?: No Immunizations Up To Date Tetanus Booster (TDap): Unknown Influenza Vaccine Up-to-Date: No; Not Current First/Initial COVID19 Vaccinat: 2020 Second COVID19 Vaccination Yosef: 2020 Third COVID19 Vaccination Date: 2020 Seasonal Allergies Seasonal Allergies: No Past Medical History Surgery/Hospitalization HX: dementia, low blood pressure pacemaker, stroke Surgeries: Yes (kidney, liver lac. 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 0oz. [id number]; 25.00 BMI Method:Estimated General Appearance: No Apparent Distress, WD/WN Eyes: Bilateral Eye Normal Inspection, Bilateral Eye PERRL, Bilateral Eye EOMI HEENT: PERRL/EOMI, Pharynx Normal Neck: Full Range of Motion, Normal Inspection, Non Tender, Supple Respiratory: Lungs Clear, Normal Breath Sounds, No Accessory Muscle Use, No Respiratory Distress Cardiovascular: Regular Rate, Rhythm, Normal Peripheral Pulses, Systolic Murmur (3/6 systolic ejection murmur heard throughout the precordium best auscultated at the apex) Gastrointestinal: Normal Bowel Sounds, Non Tender, Soft Extremity: Normal Capillary Refill, Normal Inspection, Normal Range of Motion, Non Tender, No Calf Tenderness Neurologic/Psychiatric: Alert, No Motor/Sensory Deficits, Normal Mood/Affect Skin: Normal Color, Warm/Dry Progress/Results/Core Measures Suspected Sepsis SIRS Temperature: Pulse: 97 Respiratory Rate: 18 Laboratory Tests 09/21/22 14:25: White Blood Count 7.0 Blood Pressure 98 /71 Mean: 80 Laboratory Tests 09/21/22 14:25: Platelet Count 100L 09/21/22 15:20: Creatinine 0.79 Results/Orders Lab Results Laboratory Tests Test 09/21/22 14:25 09/21/22 15:20 Range/Units White Blood Count 7.0 4.3-11.0 10^3/uL Red Blood Count 4.51 4.30-5.52 10^6/uL Hemoglobin 13.2 L 13.3-17.7 g/dL Hematocrit 40 40-54 % Mean Corpuscular Volume 89 80-99 fL Mean Corpuscular Hemoglobin 29 25-34 pg Mean Corpuscular Hemoglobin Concent 33 32-36 g/dL Red Cell Distribution Width 14.2 10.0-14.5 % Platelet Count 100 L 130-400 10^3/uL Mean Platelet Volume 11.8 9.0-12.2 fL Immature Granulocyte % (Auto) 1 % Neutrophils (%) (Auto) 65 42-75 % Lymphocytes (%) (Auto) 23 12-44 % Monocytes (%) (Auto) 9 0-12 % Eosinophils (%) (Auto) 1 0-10 % Basophils (%) (Auto) 1 0-10 % Neutrophils # (Auto) 4.5 1.8-7.8 10^3/uL Lymphocytes # (Auto) 1.6 1.0-4.0 10^3/uL Monocytes # (Auto) 0.6 0.0-1.0 10^3/uL Eosinophils # (Auto) 0.1 0.0-0.3 10^3/uL Basophils # (Auto) 0.0 0.0-0.1 10^3/uL Immature Granulocyte # (Auto) 0.1 0.0-0.1 10^3/uL Smear Scan YES Sodium Level 140 135-145 MMOL/L Potassium Level 4.0 3.6-5.0 MMOL/L Chloride Level 109 H 98-107 MMOL/L Carbon Dioxide Level 24 21-32 MMOL/L Anion Gap 7 5-14 MMOL/L Blood Urea Nitrogen 12 7-18 MG/DL Creatinine 0.79 0.60-1.30 MG/DL Estimat Glomerular Filtration Rate 85 BUN/Creatinine Ratio 15 Glucose Level 127 H 70-105 MG/DL Calcium Level 8.9 8.5-10.1 MG/DL My Orders Orders - EMMANUELLE DOUGLAS MD Ed Iv/Invasive Line Start (09/21/22 14:20) Cbc With Automated Diff (09/21/22 14:20) Basic Metabolic Panel (09/21/22 14:20) Vital Signs/I&O 09/21/22 09/21/22 14:05 16:28 Temp 36.6 Pulse 97 97 Resp 18 18 B/P (MAP) 98/71 (80) 125/96 Pulse Ox 99 95 O2 Delivery Room Air Room Air Capillary Refill : Blood Pressure Mean: 80 Progress Note : Time: 16:21 Progress Note Patient seen and evaluated, basic labs obtained CBC and chemistry. Son states these are frequent "spells". The only reason they came to the emergency room is because the episode was witnessed by medical staff at the hospital. Son states that if they had been at home and had this it happened he would have just put him back in his chair or in the bed and given him a little something to eat. Blood sugar was normal. Patient recovered uneventfully throughout his stay in the ED. Normal blood pressure laying and standing prior to dismissal. Labs are within normal limits. No concerning findings, clinical or objective findings for sepsis, acute coronary syndrome, stroke. Son is comfortable with discharge to home. We will follow-up with primary care. All questions were sought and answered Departure Impression Primary Impression: Syncope Qualified Codes: R55 - Syncope and collapse Disposition: HOME, SELF-CARE Condition: Improved Departure-Patient Inst. Decision time for Depature: 16:24 Referrals: FIDELINA HEARN MD (PCP) Primary Care Physician Patient Instructions: Syncope (Fainting) (DC) Add. Discharge Instructions: His daily medications as prescribed. Follow-up with your primary care physician as well as your city maintenance manager as scheduled. Return to the emergency department for reevaluation if any new, concerning or emergent complaints occur. Copy Copies To 1: FIDELINA HEARN MD, KATHRYN M MD Sep 21, 2022 16:17
[2022-09-21 16:28] VITALS: BP 125/96
== END 2022-09-21 16:28 | disposition home or self-care (01) ==
LOC: EDUNIT# 14:02 → ER 14:03
DX: R55 Syncope and collapse (principal)
CPT/HCPCS: 36415; 80048; 85025; 99283

== ENCOUNTER 2022-10-24 12:50 | Outpatient (RCR) | payer MEDICARE | END 2022-10-25 | disposition home or self-care (01) | PROVIDERS: ATTEND Internal Medicine | DX: R26.89 Other abnormalities of gait and mobility (principal); R53.1 Weakness; I10 Essential (primary) hypertension ==

== ENCOUNTER 2022-11-23 12:52 | Outpatient (RCR) | payer MEDICARE | END 2022-11-25 | disposition home or self-care (01) | PROVIDERS: ATTEND Internal Medicine | DX: R26.89 Other abnormalities of gait and mobility (principal); R53.1 Weakness; R29.6 Repeated falls ==

== ENCOUNTER 2022-11-30 20:41 | Emergency (ER) | payer MEDICARE ==
[~2022-11-30] VITALS: Ht 180 cm; Wt 70.3 kg
--- NOTE | 2022-11-30 21:40 | ED Trauma-Multisystem ---
General Chief Complaint: Trauma-Non Activation Stated Complaint: FALL - HIT HEAD Nursing Triage Note: TO ED VIA POV AND W/C TO ROOM 8 WITH SON. PT HAS HX OF DEMENTIA AND POOR HISTORIAN. PT LIVES WITH SON WHO STATES HE LEFT THE PT FOR APPROX 2 MINUTES AND HE FELL AND HIT THE BACK OF HIS HEAD ON BEDFRAME. PT NORMALLY USES WALKER. NO LOC NOTED BY SON. SWELLING AND ABRASION NOTED TO OCCIPUT. PT DENIES HEAD OR NECK PAIN. PT TAKES 10MG ELIQUIS DAILY. HX STROKE. SON STATES HE NOTED BLOOD IN PT'S URINE AND CALLED DR. HEARN'S OFFICE AND THEY ARE SCHEDULED TO PROVIDE URINE SAMPLE TO [facility] TOMORROW. Source of Information: Family Exam Limitations: No Limitations History of Present Illness Date Seen by Provider: Nov 30, 2022 Time Seen by Provider: 21:08 Initial Comments 87-year-old male with dementia presents with his son following a fall from same level. History obtained from son. Fall was unwitnessed, but son states patient was not on the ground for long period, does not think patient passed out. Hematoma and abrasion noted to posterior head, bleeding controlled. Patient takes Eliquis daily. Son reports he noticed blood in patient's urine, has an outpatient order for urinalysis by primary care provider. Patient has no complaints, denies any pain. Son denies any fever/chills, nausea/vomiting/diarrhea, reports normal bowel movements, denies dysuria. Occurred: Just Prior to Arrival Allergies and Home Medications Allergies Coded Allergies: NKANo Known Allergies (Verified Allergy, Unknown, 09/21/22) Patient Home Medication List Home Medication List Reviewed: Yes Allopurinol (Allopurinol) 100 Mg Tablet, 100 MG PO DAILY, (Reported) Entered as Reported by: JACK WALKER on 07/14/15 0833 Apixaban (Eliquis) 5 Mg Tablet, 5 MG PO BID, (Reported) Entered as Reported by: FEDE HARVEY on 05/16/22 1349 Atorvastatin Calcium (Atorvastatin Calcium) 40 Mg Tablet, 40 MG PO DAILY, (Reported) Entered as Reported by: FEDE HARVEY on 05/16/22 1349 Losartan Potassium (Losartan Potassium) 50 Mg Tablet, 50 MG PO DAILY, (Reported) Entered as Reported by: FEDE HARVEY on 05/16/22 1349 Methylcellulose (Fiber) 500 Mg Tablet, 500 MG PO BID, (Reported) Entered as Reported by: FEDE HARVEY on 05/16/22 1349 Nystatin (Nystatin) 100,000 Unit/Gram Cream..g., 15 GM TP BID Prescribed by: PADMINI ROSADO on 05/16/22 1208 Oxybutynin Chloride (Oxybutynin Chloride) 5 Mg Tablet, 5 MG PO DAILY, (Reported) Entered as Reported by: JACK WALKER on 07/14/15 0833 Vit C/E/Zn/Coppr/Lutein/Zeaxan (Preservision Areds 2 Softgel) 250MG-90MG Capsule, 1 EACH PO BID, (Reported) Entered as Reported by: FEDE HARVEY on 05/16/22 1349 Review of Systems Review of Systems Constitutional: see HPI Past Waiqucl-Dihttg-Fibkdl Hx Immunizations Up To Date Tetanus Booster (TDap): Unknown First/Initial COVID19 Vaccinat: 2020 Second COVID19 Vaccination Yosef: 2020 Third COVID19 Vaccination Date: 2020 Seasonal Allergies Seasonal Allergies: No Past Medical History Surgery/Hospitalization HX: dementia, low blood pressure pacemaker, stroke Surgeries: Yes (kidney, liver lac. repair(17yrsold),/hernia repair x 2/pacemaker) Abdominal, Eye Surgery, Pacemaker Respiratory: No Cardiac: Yes Atrial Fibrillation, High Cholesterol, Hypertension Neurological: Yes Stroke Reproductive Disorders: No Gastrointestinal: No Musculoskeletal: Yes Gout Endocrine: No HEENT: Yes (right eye retinal detachment status post surgery) Cancer: No Psychosocial: No Integumentary: No Blood Disorders: No Family Medical History BRAIN TUMOR 19 MOTHER G8 BROTHER BRAIN TUMOR 19 MOTHER G8 BROTHER Completed stroke 19 FATHER ( AT AGE 50 YRS OF AGE FROM BLOOD CLOT TO BRAIN) FH: brain tumor Physical Exam Vital Signs Vital Signs - First Documented 11/30/22 21:05 Temp 36.7 Pulse 104 Resp 16 B/P (MAP) 118/93 (101) Pulse Ox 93 O2 Delivery Room Air Height, Weight, BMI Height: 5'10.00" Weight: 170lbs. 0oz. 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 Skin: Normal Color, Warm/Dry, Other (abrasion to posterior head) Progress/Results/Core Measures Results/Orders My Orders Orders - ILENEGIOVANI JOHNSON INTER [employer] Dipht,Pertuss(Acell),Tet Adult (Boostrix (11/30/22 22:30) Medications Given in ED Current Medications Medications Dose Ordered Sig/Von Route Start Time Stop Time Status Last Admin Dose Admin Diphtheria/ Tetanus/Acell Pertussis 0.5 ml ONCE ONCE IM 11/30/22 22:30 11/30/22 22:31 DC 11/30/22 22:40 0.5 ML Vital Signs/I&O 11/30/22 21:05 Temp 36.7 Pulse 104 Resp 16 B/P (MAP) 118/93 (101) Pulse Ox 93 O2 Delivery Room Air Blood Pressure Mean: 101 Progress Progress Note #1: Time: 21:08 Progress Note Patient seen and evaluated, patient sitting comfortably in wheelchair, no acute distress, bleeding controlled. Based on exam and symptoms, concern for intracranial bleed, skull fracture. CT head and neck ordered. Urinalysis ordered for reported hematuria. Progress Note #2: Time: 22:[address] results discussed with son, enlarged thyroid with nodules noted on CT scan of the neck. Son denies history of thyroid issues, denies ever having an ultrasound of the thyroid. Instructed son to follow-up with primary regarding this for possible outpatient ultrasound. Urine specimen cup sent with son so that they could obtain a urine sample outpatient and bring to [facility]. Return precautions provided. Departure Impression Primary Impression: Head injury Disposition: 01 HOME, SELF-CARE Condition: Stable Departure-Patient Inst. Decision time for Depature: 22:40 Referrals: FIDELINA HEARN MD (PCP/Family) Primary Care Physician Patient Instructions: Head Injury in Adults Add. Discharge Instructions: Follow-up with Dr. Hearn. Take urine specimen cup to collect sample, refrigerate sample prior to taking to [facility]. Tetanus shot was updated today. Return if complaining of severe headache, he has persistent vomiting, changes in vision, or any new or concerning symptoms. All discharge instructions reviewed with patient and/or family. Voiced un derstanding. GIOVANI ODOM APRN Nov 30, 2022 21:40
--- NOTE | 2022-11-30 22:16 | Diagnostic Imaging Report ---
PROCEDURE: CT head and CT cervical spine without contrast. TECHNIQUE: Multiple contiguous axial images were obtained through the brain and cervical spine without the use of intravenous contrast. Sagittal and coronal reformations through the cervical spine were then performed. Auto Exposure Controls were utilized during the CT exam to meet ALARA standards for radiation dose reduction. INDICATION: Fall, pain. COMPARISON: 05/15/2022. FINDINGS: Moderate atrophy with associated prominence of the ventricular system is again noted, appearing similar to the prior examination. Mineralization within the bilateral basal ganglia is again seen. No intracranial hemorrhage. Mild background chronic small vessel white matter ischemic disease is again identified. No intracranial mass, mass effect, midline shift, obstructive hydrocephalus, herniation or extra-axial fluid collection. Advanced vascular calcifications are noted involving the bilateral carotid arteries. No CT evidence of an acute ischemic infarction. Soft tissue swelling and contusion is noted involving the midline posterior scalp extending to the left without underlying calvarial fracture. The paranasal sinuses are clear. 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 Alignment of the cervical spine is stable from the prior examination with very minimal anterolisthesis of C7 on T1. Alignment of the atlantooccipital joint is well maintained. Significant scattered endplate degenerative changes are identified, similar to the prior examination without evidence of a recent vertebral body compression deformity. Significant disc space height loss is noted, including at C3/C4 through C6/C7. Significant disc space height loss of T1/T2 is again noted. No acute fracture or dislocation. No destructive osseous process. Significant facet joint degenerative changes and uncovertebral joint hypertrophy are present. No severe osseous central canal stenosis. Pacer device is present overlying the left chest. No apical pneumothorax. The thyroid gland is diffusely enlarged and nodular. Advanced background vascular calcifications. IMPRESSION: No acute intracranial abnormality with moderate atrophy and mild background chronic small vessel white matter ischemic disease. No acute osseous abnormality within the cervical spine with moderate degenerative changes. Advanced background vascular calcifications. The thyroid gland is diffusely enlarged and nodular. Nonemergent thyroid ultrasound could be considered if this is not previously been evaluated, as clinically indicated. Dictated by: Dictated on workstation # [id number]
[2022-11-30] MEDS ORDERED: TETANUS,DIPTH,PERTUSS P/F (BOOSTRIX) 0.5 ML VIAL IM ONE (22:30)
[2022-11-30 22:52] VITALS: BP 115/89
== END 2022-11-30 22:52 | disposition home or self-care (01) ==
LOC: EDUNIT# 20:41 → ER 20:44
DX: S09.90XA Unspecified injury of head, initial encounter (principal); S00.81XA Abrasion of other part of head, initial encounter; E04.9 Nontoxic goiter, unspecified; R31.9 Hematuria, unspecified; Z79.01 Long term (current) use of anticoagulants; Z23 Encounter for immunization; W18.30XA Fall on same level, unspecified, initial encounter; W22.8XXA Striking against or struck by other objects, initial encounter
CPT/HCPCS: 70450; 72125; 90715

== ENCOUNTER 2022-12-21 14:07 | Outpatient (RCR) | payer MEDICARE | END 2022-12-26 | disposition home or self-care (01) | PROVIDERS: ATTEND Internal Medicine | DX: R26.89 Other abnormalities of gait and mobility (principal); R53.1 Weakness; R29.6 Repeated falls ==

== ENCOUNTER 2023-01-17 14:57 | Outpatient (RCR) | payer MEDICARE | END 2023-01-23 | disposition home or self-care (01) | PROVIDERS: ATTEND Internal Medicine | DX: R26.89 Other abnormalities of gait and mobility (principal); R53.1 Weakness; R29.6 Repeated falls ==

== ENCOUNTER 2023-02-19 13:22 | Outpatient (RCR) | payer MEDICARE ==
[~2023-02-19 13:22] MED LIST changes: +ENAL-66 PO
== END 2023-02-23 | disposition home or self-care (01) ==
PROVIDERS: ATTEND Internal Medicine
DX: R26.89 Other abnormalities of gait and mobility (principal); R53.1 Weakness; R29.6 Repeated falls

== ENCOUNTER → 2023-02-27 | Outpatient (CLI) | payer MEDICARE ==
[2023-02-27 09:20] LABS: BASOPHILS % (AUTO) 0 % (0-10); EOSINOPHILS # (AUTO) 0.1 10^3/uL (0.0-0.3); EOSINOPHILS % (AUTO) 1 % (0-10); HEMATOCRIT 39 % (40-54); HEMOGLOBIN 12.9 g/dL (13.3-17.7); LYMPHOCYTES # (AUTO) 1.8 10^3/uL (1.0-4.0); LYMPHOCYTES % (AUTO) 19 % (12-44); MEAN CORPUSCULAR HEMOGLOBIN 30 pg (25-34); MEAN CORPUSCULAR HGB CONC 34 g/dL (32-36); MEAN CORPUSCULAR VOLUME 89 fL (80-99); MEAN PLATELET VOLUME 10.5 fL (9.0-12.2); MONOCYTES # (AUTO) 0.6 10^3/uL (0.0-1.0); MONOCYTES % (AUTO) 6 % (0-12); NEUTROPHILS # (AUTO) 6.8 10^3/uL (1.8-7.8); NEUTROPHILS % (AUTO) 73 % (42-75); PLATELET COUNT 171 10^3/uL (130-400); WHITE BLOOD COUNT 9.3 10^3/uL (4.3-11.0)
--- NOTE | 2023-02-27 09:44 | Diagnostic Imaging Report ---
EXAMINATION: CT head without contrast. TECHNIQUE: Multiple contiguous axial images were obtained through the brain without the use of intravenous contrast. All CT scans use one or more of the following dose optimizing techniques: automated exposure control, MA and/or KvP adjustment based on patient size and exam type or iterative reconstruction. HISTORY: Syncopal episode. Fall. Concussion. COMPARISON: 11/30/2022. FINDINGS: No large acute territorial ischemia, mass, or hemorrhage. No midline shift or mass effect. Decreased attenuation is seen in the periventricular and subcortical white matter. The ventricles and cortical sulci are prominent. The basilar cisterns are patent and unremarkable. Post treatment changes are seen in the right orbit with dense material within the globe. Paranasal sinuses are normal. Mastoid air cells are clear. No soft tissue abnormality is seen. No osseus lesions or fractures are seen. IMPRESSION: 1. No large acute territorial ischemia, mass, or hemorrhage. 2. Chronic microvascular disease. 3. Generalized parenchymal volume loss. Dictated by: Dictated on workstation # [id number]
[2023-02-27 09:45] LABS: INR 1.2 (0.8-1.4); PROTHROMBIN TIME PATIENT 15.3 SEC (12.2-14.7)
[2023-02-27 09:54] LABS: ALBUMIN 3.6 GM/DL (3.2-4.5); BILIRUBIN,TOTAL 0.4 MG/DL (0.1-1.0); CALCIUM 8.9 MG/DL (8.5-10.1); CREATININE SERUM 1.04 MG/DL (0.60-1.30); POTASSIUM 3.7 MMOL/L (3.6-5.0)
== END ==
LOC: RAD 08:56
PROVIDERS: ATTEND Nurse Practitioner Family
DX: R55 Syncope and collapse (principal); R53.83 Other fatigue; S06.0X0A Concussion without loss of consciousness, initial encounter; X58.XXXD Exposure to other specified factors, subsequent encounter
CPT/HCPCS: 36415; 70450; 80053; 84443; 85025; 85610

== ENCOUNTER 2023-03-20 14:06 | Outpatient (RCR) | payer MEDICARE | END 2023-03-25 | disposition home or self-care (01) | PROVIDERS: ATTEND Internal Medicine | DX: R53.1 Weakness (principal); R26.89 Other abnormalities of gait and mobility; I10 Essential (primary) hypertension ==

== ENCOUNTER 2023-04-24 14:55 | Outpatient (RCR) | payer MEDICARE | END 2023-04-25 | disposition home or self-care (01) | PROVIDERS: ATTEND Internal Medicine | DX: R53.1 Weakness (principal); R26.89 Other abnormalities of gait and mobility ==

== ENCOUNTER 2023-05-22 13:45 | Outpatient (RCR) | payer MEDICARE | END 2023-05-25 | disposition home or self-care (01) | PROVIDERS: ATTEND Internal Medicine | DX: R53.1 Weakness (principal); R26.89 Other abnormalities of gait and mobility; I10 Essential (primary) hypertension ==

== ENCOUNTER 2023-06-18 14:46 | Inpatient (IN) | payer MEDICARE ==
[~2023-06-18] VITALS: Ht 177.8 cm; Wt 73.3 kg
--- NOTE | 2023-06-18 15:23 | ED General ---
General Chief Complaint: Dizziness/Syncope Stated Complaint: LOW HEMOGLOBIN | 6.8 Nursing Triage Note: PT TO RM 7 PER W/C PT HAS BEEN HAVING SYNCOPAL EPISODES FOR A WEEK, HAD LAB CHECKED AND HBG IS 6.8. PT HAS DEMENTIA AND IS CARED FOR AT HOME BY FAMILY Source of Information: Patient Exam Limitations: No Limitations History of Present Illness Date Seen by Provider: Jun 18, 2023 Time Seen by Provider: 15:21 Initial Comments Patient is a 88-year-old male who presents the ED with his licensed prosthetist who is his son for low hemoglobin of 6.8 and syncopal episodes. Over the past week he has had near fainting episodes. This occurs with walking. Starts to to look pale and near collapses. According to his son he catches him puts him to the ground pulls his knees up and symptoms improve about 1 to 2 minutes later. He reports about 4 episodes over the past 10 days. Had lab work drawn by Dr. Walker's office today had a hemoglobin 6.8. Son noted dark tarry stool over the past 2 days. Patient does have a history of dementia. Does have a history of transient hypotension currently on midodrine. Patient denies of any chest pain, cough, shortness of breath, abdominal pain vomiting, diarrhea. Normal urin ation. According to son last colonoscopy has been several years ago. Denies fever, chills, bodyaches. Allergies and Home Medications Allergies Coded Allergies: QIANo Known Allergies (Verified Allergy, Unknown, 09/21/22) Patient Home Medication List Home Medication List Reviewed: Yes Allopurinol (Allopurinol) 100 Mg Tablet, 100 MG PO DAILY, (Reported) Entered as Reported by: JACK WALKER on 07/14/15 0833 Last Action: Reviewed Apixaban (Eliquis) 5 Mg Tablet, 5 MG PO BID, (Reported) Entered as Reported by: FEDE HARVEY on 05/16/22 1349 Last Action: Reviewed Dronedarone HCl (Multaq) 400 Mg Tablet, 400 MG PO BID, (Reported) Entered as Reported by: FEDE HARVEY on 06/19/23 1010 Last Action: Reviewed Methylcellulose (Fiber) 500 Mg Tablet, 500 MG PO BID, (Reported) Entered as Reported by: FEDE HARVEY on 05/16/22 1349 Last Action: Reviewed Midodrine HCl (Midodrine HCl) 10 Mg Tablet, 10 MG PO TID, (Reported) Entered as Reported by: FEDE HARVEY on 06/19/23 1010 Last Action: Reviewed Mirtazapine (Mirtazapine) 15 Mg Tablet, 15 MG PO HS, (Reported) Entered as Reported by: FEDE HARVEY on 06/19/23 1010 Last Action: Reviewed Oxybutynin Chloride (Oxybutynin Chloride) 5 Mg Tablet, 5 MG PO DAILY, (Reported) Entered as Reported by: JACK WALKER on 07/14/15 0833 Last Action: Reviewed Discontinued Medications Atorvastatin Calcium (Atorvastatin Calcium) 40 Mg Tablet, 40 MG PO DAILY, (Reported) Discontinued Reason: No Longer Taking Entered as Reported by: FEDE HARVEY on 05/16/22 1349 Last Action: Discontinued Losartan Potassium (Losartan Potassium) 50 Mg Tablet, 50 MG PO DAILY, (Reported) Discontinued Reason: No Longer Taking Entered as Reported by: FEDE HARVEY on 05/16/22 1349 Last Action: Discontinued Nystatin (Nystatin) 100,000 Unit/Gram Cream..g., 15 GM TP BID Discontinued Reason: No Longer Taking Prescribed by: PADMINI ROSADO on 05/16/22 1208 Last Action: Discontinued Vit C/E/Zn/Coppr/Lutein/Zeaxan (Preservision Areds 2 Softgel) 250MG-90MG Capsule, 1 EACH PO BID, (Reported) Discontinued Reason: No Longer Taking Entered as Reported by: FEDE HARVEY on 05/16/22 1349 Last Action: Discontinued Review of Systems Review of Systems Constitutional: No chills, No diaphoresis, No fever, No malaise, No weakness EENTM: No hearing loss, No blurred vision, No double vision Respiratory: No cough Cardiovascular: No chest pain, No edema Gastrointestinal: No abdominal pain, No diarrhea, No nausea, No vomiting; other (dark tarry stool) Genitourinary: No decreased output, No discharge Musculoskeletal: No back pain, No joint pain Skin: No change in color, No change in hair/nails Psychiatric/Neurological: Denies Anxiety, Denies Depressed All Other Systems Reviewed Negative Unless Noted: Yes Past Psyfbfz-Azpxhn-Vhqflr Hx Patient Social History Tobacco Use?: No Substance use?: No Alcohol Use?: No Pt feels they are or have been: No Immunizations Up To Date Tetanus Booster (TDap): Unknown First/Initial COVID19 Vaccinat: 2020 Second COVID19 Vaccination Yosef: 2020 Third COVID19 Vaccination Date: 2020 Seasonal Allergies Seasonal Allergies: No Past Medical History Surgery/Hospitalization HX: dementia, low blood pressure pacemaker, stroke Surgeries: Yes (kidney, liver lac. repair(17yrsold),/hernia repair x 2/pacemaker) Abdominal, Eye Surgery, Pacemaker Respiratory: No Cardiac: Yes Atrial Fibrillation, High Cholesterol, Hypertension Neurological: Yes Stroke Reproductive Disorders: No Gastrointestinal: No Musculoskeletal: Yes Gout Endocrine: No HEENT: Yes (right eye retinal detachment status post surgery) Cancer: No Psychosocial: No Integumentary: No Blood Disorders: No Family Medical History BRAIN TUMOR 19 MOTHER G8 BROTHER BRAIN TUMOR 19 MOTHER G8 BROTHER Completed stroke 19 FATHER ( AT AGE 50 YRS OF AGE FROM BLOOD CLOT TO BRAIN) FH: brain tumor Physical Exam Vital Signs Vital Signs - First Documented 06/18/23 15:10 Pulse 79 Resp 16 B/P (MAP) 110/66 (81) Pulse Ox 100 Capillary Refill : Less Than 3 Seconds Height, Weight, BMI Height: 5'10.00" Weight: 170lbs. 0oz. [id number]; 23.00 BMI Method:Estimated General Appearance: No Apparent Distress, WD/WN Eyes: Bilateral Eye Normal Inspection, Bilateral Eye PERRL, Bilateral Eye EOMI HEENT: PERRL/EOMI, TMs Normal, Normal ENT Inspection, Pharynx Normal Neck: Full Range of Motion, Normal Inspection, Non Tender, Supple Respiratory: Chest Non Tender, Lungs Clear, Normal Breath Sounds, No Accessory Muscle Use, No Respiratory Distress Cardiovascular: Regular Rate, Rhythm, No Edema, No Gallop, No JVD, No Murmur Gastrointestinal: Normal Bowel Sounds, No Organomegaly, No Pulsatile Mass, Non Tender, Soft Back: Normal Inspection, No CVA Tenderness, No Vertebral Tenderness Extremity: Normal Capillary Refill, Normal Inspection, Normal Range of Motion, Non Tender Neurologic/Psychiatric: Alert, No Motor/Sensory Deficits, Normal 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, 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 Skin: Normal Color, Warm/Dry Progress/Results/Core Measures Suspected Sepsis SIRS Temperature: Pulse: 79 Respiratory Rate: 16 Laboratory Tests 06/18/23 15:30: White Blood Count 7.1 Blood Pressure 110 /66 Mean: 81 Laboratory Tests 06/18/23 15:30: Creatinine 0.85, INR Comment 1.3, Platelet Count 199, Total Bilirubin 0.3 Results/Orders Lab Results Laboratory Tests Test 06/18/23 15:30 Range/Units White Blood Count 7.1 4.3-11.0 10^3/uL Red Blood Count 2.11 L 4.30-5.52 10^6/uL Hemoglobin 6.3 *L 13.3-17.7 g/dL Hematocrit 20 *L 40-54 % Mean Corpuscular Volume 93 80-99 fL Mean Corpuscular Hemoglobin 30 25-34 pg Mean Corpuscular Hemoglobin Concent 32 32-36 g/dL Red Cell Distribution Width 16.0 H 10.0-14.5 % Platelet Count 199 130-400 10^3/uL Mean Platelet Volume 10.1 9.0-12.2 fL Immature Granulocyte % (Auto) 0 % Neutrophils (%) (Auto) 72 42-75 % Lymphocytes (%) (Auto) 20 12-44 % Monocytes (%) (Auto) 7 0-12 % Eosinophils (%) (Auto) 1 0-10 % Basophils (%) (Auto) 0 0-10 % Neutrophils # (Auto) 5.1 1.8-7.8 10^3/uL Lymphocytes # (Auto) 1.4 1.0-4.0 10^3/uL Monocytes # (Auto) 0.5 0.0-1.0 10^3/uL Eosinophils # (Auto) 0.0 0.0-0.3 10^3/uL Basophils # (Auto) 0.0 0.0-0.1 10^3/uL Immature Granulocyte # (Auto) 0.0 0.0-0.1 10^3/uL Prothrombin Time 16.0 H 12.2-14.7 SEC INR Comment 1.3 0.8-1.4 Activated Partial Thromboplast Time 22 L 24-35 SEC Sodium Level 142 135-145 MMOL/L Potassium Level 4.8 3.6-5.0 MMOL/L Chloride Level 109 H 98-107 MMOL/L Carbon Dioxide Level 23 21-32 MMOL/L Anion Gap 10 5-14 MMOL/L Blood Urea Nitrogen 22 H 7-18 MG/DL Creatinine 0.85 0.60-1.30 MG/DL Estimat Glomerular Filtration Rate 83 BUN/Creatinine Ratio 26 Glucose Level 110 H 70-105 MG/DL Calcium Level 8.4 L 8.5-10.1 MG/DL Corrected Calcium 9.0 8.5-10.1 MG/DL Total Bilirubin 0.3 0.1-1.0 MG/DL Aspartate Amino Transf (AST/SGOT) 34 5-34 U/L Alanine Aminotransferase (ALT/SGPT) 12 0-55 U/L Alkaline Phosphatase 66 40-136 U/L Total Protein 5.7 L 6.4-8.2 GM/DL Albumin 3.3 3.2-4.5 GM/DL My Orders Orders - NABILA WALLACE Cbc With Automated Diff (06/18/23 15:17) Comprehensive Metabolic Panel (06/18/23 15:17) Partial Thromboplastin Time (06/18/23 15:17) Protime With Inr (06/18/23 15:17) Type And Screen (06/18/23 15:17) Pantoprazole Injection (Protonix Injecti (06/18/23 15:30) Iv/Invasive Line Insertion .IV INSERT (06/18/23 15:17) Ekg Tracing (06/18/23 15:17) Ua Culture If Indicated (06/18/23 15:25) Red Cells Leukocytes Reduced (06/18/23 16:05) Medications Given in ED Vital Signs/I&O 06/18/23 15:10 Pulse 79 Resp 16 B/P (MAP) 110/66 (81) Pulse Ox 100 Capillary Refill : Less Than 3 Seconds Blood Pressure Mean: 81 ECG Comment Atrial pacemaker, right bundle branch block, 78 bpm, QRS duration 133 MS, QTc 4 63 MS Departure Communication (PCP) Reviewed previous ER visits, H&P, lab testing. History of transient hypotension currently on midodrine prescribed by Dr. Walker which helps with his blood pressure. Patient does have pacemaker. Patient looks pale with stable vital signs. Patient is currently not complaining of any chest pain short of breath abdominal pain vomiting or diarrhea. Dark tarry stool for the past few days. Currently on Eliquis with a history of stroke. Patient vital signs stable. Does have a history of dementia. Lives with son who is his licensed prosthetist. Patient is currently DNR. Concerned that patient looks pale. Near syncopal episodes for about the past 10 days. No complete loss of consciousness. EKG, gene ralized lab work, type and screen and urinalysis was ordered. EKG showed atrial paced rhythm. CBC showed a hemoglobin 6.3 hematocrit 20. BUN of 22 normal kidney function. Chemistry was grossly unremarkable. Hemoccult test was positive. Soft abdomen. Started on IV Protonix 40 mg twice daily. Patient will receive 1 unit of blood here in the ED. Patient was discussed with Dr. Lieberman general surgeon who will consult. Patient was discussed with Dr. Franco who agrees to accept patient. Imaging was held of the abdomen. No specific abdominal tenderness. Vital signs remained stable. Will Hold Eliquis. Impression Primary Impression: GI bleed Disposition: ADMITTED INPATIENT Condition: Stable Admissions Decision to Admit Reason: Admit from ER (General) Decision to Admit/Date: Jun 18, 2023 Time/Decision to Admit Time: 16:41 Departure-Patient Inst. Referrals: FIDELINA HEARN MD (PCP/Family) Primary Care Physician NABILA WALLACE Jun 18, 2023 15:23
[2023-06-18] MEDS ORDERED: PANTOPRAZOLE 40 MG (PROTONIX) VIAL IV ONE (15:30)
[2023-06-18 16:02] LABS: BASOPHILS % (AUTO) 0 % (0-10); EOSINOPHILS % (AUTO) 1 % (0-10); LYMPHOCYTES # (AUTO) 1.4 10^3/uL (1.0-4.0); LYMPHOCYTES % (AUTO) 20 % (12-44); MEAN CORPUSCULAR HEMOGLOBIN 30 pg (25-34); MEAN CORPUSCULAR HGB CONC 32 g/dL (32-36); MEAN CORPUSCULAR VOLUME 93 fL (80-99); MEAN PLATELET VOLUME 10.1 fL (9.0-12.2); MONOCYTES # (AUTO) 0.5 10^3/uL (0.0-1.0); MONOCYTES % (AUTO) 7 % (0-12); NEUTROPHILS # (AUTO) 5.1 10^3/uL (1.8-7.8); NEUTROPHILS % (AUTO) 72 % (42-75); PLATELET COUNT 199 10^3/uL (130-400); WHITE BLOOD COUNT 7.1 10^3/uL (4.3-11.0)
[2023-06-18 16:03] LABS: HEMOGLOBIN 6.3 g/dL (13.3-17.7)
[2023-06-18 16:04] LABS: HEMATOCRIT 20 % (40-54)
[2023-06-18 16:13] LABS: INR 1.3 (0.8-1.4)
[2023-06-18 16:14] LABS: ALBUMIN 3.3 GM/DL (3.2-4.5); POTASSIUM 4.8 MMOL/L (3.6-5.0)
[2023-06-18 16:15] LABS: CALCIUM 8.4 MG/DL (8.5-10.1)
[2023-06-18 16:16] LABS: TOTAL PROTEIN 5.7 GM/DL (6.4-8.2)
[2023-06-18 16:18] LABS: BILIRUBIN,TOTAL 0.3 MG/DL (0.1-1.0)
[2023-06-18 16:20] LABS: CREATININE SERUM 0.85 MG/DL (0.60-1.30)
[2023-06-18] MEDS ORDERED: CATHETER FLUSH 10 ML SYR IVP PRN (17:45)
[2023-06-18] MEDS ORDERED: NS IV 500 ML 500 ML ONE (18:20)
[2023-06-18 18:45] VITALS: BP 120/58
[2023-06-18 19:03] VITALS: BP 128/61
[2023-06-18 19:37] VITALS: BP 129/66
[2023-06-18] MEDS: PANTOPRAZOLE 40 MG (PROTONIX) VIAL IV SCH (21:19)
[2023-06-18] MEDS: CATHETER FLUSH 10 ML SYR IVP SCH (21:21)
[2023-06-18 22:23] VITALS: BP 125/61
[2023-06-18 23:10] VITALS: BP 131/68
[2023-06-19] VITALS (10 sets, daily range): BP systolic 97–152; BP diastolic 56–82
[2023-06-19] MEDS: CATHETER FLUSH 10 ML SYR IVP SCH ×3 (06:17→22:05)
[2023-06-19 07:32] LABS: HEMATOCRIT 22 % (40-54); HEMOGLOBIN 7.1 g/dL (13.3-17.7); MEAN CORPUSCULAR HEMOGLOBIN 30 pg (25-34); MEAN CORPUSCULAR HGB CONC 33 g/dL (32-36); MEAN CORPUSCULAR VOLUME 92 fL (80-99); MEAN PLATELET VOLUME 10.2 fL (9.0-12.2); PLATELET COUNT 167 10^3/uL (130-400); WHITE BLOOD COUNT 6.8 10^3/uL (4.3-11.0)
[2023-06-19 08:00] LABS: BILIRUBIN,TOTAL 0.9 MG/DL (0.1-1.0); CALCIUM 8.1 MG/DL (8.5-10.1); CREATININE SERUM 0.86 MG/DL (0.60-1.30); POTASSIUM 4.2 MMOL/L (3.6-5.0); TOTAL PROTEIN 4.8 GM/DL (6.4-8.2)
[2023-06-19] MEDS: PANTOPRAZOLE 40 MG (PROTONIX) VIAL IV SCH ×2 (08:33→20:03)
[2023-06-19] MEDS ORDERED: NS IV 500 ML 500 ML IV SCH (08:45)
--- NOTE | 2023-06-19 09:13 | Consultation-Cardiology ---
HPI-Cardiology Cardiology Consultation Date of Consultation 06/19/23 Date of Admission Time Seen by Provider: 08:25 Indication: Syncope, GI bleed HPI Patient is an 88 y/o male with history of dementia, SSS/PAF, Hypotension currently on midodrine. Presented to ER after CBC done though office showing Hgb 6.8. Has been having increased episodes and dizziness and near syncope. Son sudhakar ontacted our office last week and was told to go to the ER. Denies and chest pain, dyspnea or peripheral edema. Upon interviewing patient he is eating breakfast in bed, no complaints at this time. Home Medications & Allergies Allergies: Coded Allergies: NKANo Known Allergies (Verified Allergy, Unknown, 09/21/22) Home Medication List Reviewed: Yes FLA-Dvmzfs-Mpukqd Hx Patient Social History Marital Status: Employed/Student: retired Smoking Status: Never a Smoker Former smoker/When Quit: Jun 26, 1974 2nd Hand Smoke Exposure: No Recent Hopitalizations: No Alcohol Use?: No Immunizations Up To Date Tetanus Booster (TDap): Unknown Date of Pneumonia Vaccine: Jul 14, 2013 Past Medical History SSS/PAF hypotension Hx CVA Family Medical History Family History: BRAIN TUMOR 19 MOTHER G8 BROTHER BRAIN TUMOR 19 MOTHER G8 BROTHER Completed stroke 19 FATHER ( AT AGE 50 YRS OF AGE FROM BLOOD CLOT TO BRAIN) FH: brain tumor Review of Systems-General Review of Systems Constitutional: No chills, No diaphoresis, No fever, No malaise, No weakness EENTM: No hearing loss, No blurred vision, No double vision Respiratory: No cough Cardiovascular: No chest pain, No edema Gastrointestinal: No abdominal pain, No diarrhea, No nausea, No vomiting; other (dark tarry stool) Genitourinary: No decreased output, No discharge Musculoskeletal: No back pain, No joint pain Skin: No change in color, No change in hair/nails Psychiatric/Neurological: Denies Anxiety, Denies Depressed All Other Systems Reviewed Negative Unless Noted: Yes Reviewed Test Results Reviewed Test Results Lab Laboratory Tests 06/18/23 15:30: White Blood Count 7.1, Red Blood Count 2.11L, Hemoglobin 6.3*L, Hematocrit 20*L, Mean Corpuscular Volume 93, Mean Corpuscular Hemoglobin 30, Mean Corpuscular Hemoglobin Concent 32, Red Cell Distribution Width 16.0H, Platelet Count 199, Mean Platelet Volume 10.1, Immature Granulocyte % (Auto) 0, Neutrophils (%) (Auto) 72, Lymphocytes (%) (Auto) 20, Monocytes (%) (Auto) 7, Eosinophils (%) (A uto) 1, Basophils (%) (Auto) 0, Neutrophils # (Auto) 5.1, Lymphocytes # (Auto) 1.4, Monocytes # (Auto) 0.5, Eosinophils # (Auto) 0.0, Basophils # (Auto) 0.0, Immature Granulocyte # (Auto) 0.0, Prothrombin Time 16.0H, INR Comment 1.3, Activated Partial Thromboplast Time 22L, Sodium Level 142, Potassium Level 4.8, Chloride Level 109H, Carbon Dioxide Level 23, Anion Gap 10, Blood Urea Nitrogen 22H, Creatinine 0.85, Estimat Glomerular Filtration Rate 83, BUN/Creatinine Ratio 26, Glucose Level 110H, Calcium Level 8.4L, Corrected Calcium 9.0, Total Bilirubin 0.3, Aspartate Amino Transf (AST/SGOT) 34, Alanine Aminotransferase (ALT/SGPT) 12, Alkaline Phosphatase 66, Total Protein 5.7L, Albumin 3.3 06/19/23 07:22: White Blood Count 6.8, Red Blood Count 2.36L, Hemoglobin 7.1L, Hematocrit 22L, Mean Corpuscular Volume 92, Mean Corpuscular Hemoglobin 30, Mean Corpuscular Hemoglobin Concent 33, Red Cell Distribution Width 16.5H, Platelet Count 167, Mean Platelet Volume 10.2, Sodium Level 142, Potassium Level 4.2, Chloride Level 110H, Carbon Dioxide Level 23, Anion Gap 9, Blood Urea Nitrogen 21H, Creatinine 0.86, Estimat Glomerular Filtration Rate 83, BUN/Creatinine Ratio 24, Glucose Level 93, Calcium Level 8.1L, Corrected Calcium 8.9, Total Bilirubin 0.9, Aspartate Amino Transf (AST/SGOT) 15, Alanine Aminotransferase (ALT/SGPT) 8, Alkaline Phosphatase 55, Total Protein 4.8L, Albumin 3.0L Physical Exam Physical Exam Vital Signs Vital Signs - First Documented 06/18/23 06/18/23 06/18/23 15:10 18:07 18:45 Temp 37.3 Pulse 79 Resp 16 B/P (MAP) 110/66 (81) Pulse Ox 100 O2 Delivery Room Air Capillary Refill : Less Than 3 Seconds Height, Weight, BMI Height: 5'10.00" Weight: 170lbs. 0oz. [id number]; 23.18 BMI Method:Estimated General Appearance: No Apparent Distress, WD/WN Eyes: Bilateral Eye Normal Inspection, Bilateral Eye PERRL, Bilateral Eye EOMI HEENT: PERRL/EOMI, TMs Normal, Normal ENT Inspection, Pharynx Normal Neck: Full Range of Motion, Normal Inspection, Non Tender, Supple Respiratory: Chest Non Tender, Lungs Clear, Normal Breath Sounds, No Accessory Muscle Use, No Respiratory Distress Cardiovascular: Regular Rate, Rhythm, No Edema, No Gallop, No JVD, No Murmur Gastrointestinal: Normal Bowel Sounds, No Organomegaly, No Pulsatile Mass, Non Tender, Soft Back: Normal Inspection, No CVA Tenderness, No Vertebral Tenderness Extremity: Normal Capillary Refill, Normal Inspection, Normal Range of Motion, Non Tender Neurologic/Psychiatric: Alert, No Motor/Sensory Deficits, Normal Mood/Affect, glove presser II-XII Norm as Tested Skin: Normal Color, Warm/Dry A/P-Cardiology Admission Diagnosis GI bleed SSS/PAF hypotension HLP Assessment/Plan Acute GI bleed, transfused yesterday. Hgb 7.1 this morning. Eliquis was discontinued. Will transfuse again this morning. Planning for endoscopy with Dr. Avery. Sick sinus syndrome with paroxysmal atrial fibrillation status post permanent pacemaker implantation on March 23, 2006. Status post generator replacement done on July 14, [address] [employer] MONTOYA [id number]. 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 Continue to monitor Hypertension, had been having increasing hypotension and near syncope, likely secondary to GI bleed. Does have history of orthostatic hypotension. Will continue to monitor. Currently on midodrine. Hyperlipidemia, currently has been having significant weight loss and battling weight loss. Starting to regain his weight. 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 Last ultrasound done in January 2022, continue to monitor History of palpitations, probably secondary to his recurrent atrial fibrillation, reporting improvement. No further episodes were reported History of prostate cancer Thank you for allowing us to participate in the management of Dr Hernandez. This is Thu Veloz PA-C, as a scribe for Dr. Walker. Patient was seen and evaluated with Thu, I interviewed and examined the patient, discussed medical plan with hTu. I agree with the current scribed note. He was sitting in bed, still pale. Hemoglobin 7.3. Has underlying GI bleed. Discussed holding all anticoagulation at this point He is scheduled for endoscopy today. I will transfuse another unit of packed RBCs, recommended hemoglobin over 8 due to his underlying coronary artery disease and CVA. History of syncope with orthostatic hypotension, significantly worse recently due to his anemia. Continue with IV fluid, monitor H&H. Monitor telemetry THU PATRICK Jun 19, 2023 09:13 ASCENCION WALKER MD Jun 19, 2023 10:45
--- NOTE | 2023-06-19 09:57 | Consultation - Surgery ---
History of Present Illness History of Present Illness Patient Consulted On(gale/time) 06/19/23 09:52 Time Seen by Provider: 08:49 Reason for Visit: Syncope, GI bleed History of Present Illness Surgery asked to consult regarding GI bleed, Anemia. HPI per ED: Patient is a 88-year-old male who presents the ED with his treating plant pumper who is his son for low hemoglobin of 6.8 and syncopal episodes. Over the past week he has had near fainting episodes. This occurs with walking. Starts to to look pale and near collapses. According to his son he catches him puts him to the ground pulls his knees up and symptoms improve about 1 to 2 minutes later. He reports about 4 episodes over the past 10 days. Had lab work drawn by Dr. Walker's office today had a hemoglobin 6.8. Son noted dark tarry stool over the past 2 days. Patient does have a history of dementia. Does have a history of transient hypotension currently on midodrine. Patient denies of any chest pain, cough, shortness of breath, abdominal pain vomiting, diarrhea. Normal urination. According to son last colonoscopy has been several years ago. Denies fever, chills, bodyaches. When I saw pt this am, his son was in the room and explained that the pt has severe dementia. The son (who is the treating plant pumper) answered all the questions. He noted that pt had black BMs for past 9 days and "I didn't think anything about it". He also was concerned because of the syncopal episodes. The son stated he had talked it over with the whole family and they want scopes; "so we know what is causing it". Pt is on Eliquis for a stroke 6 yrs ago, nothing since and has a pacemaker. He last took Eliquis yesterday morning around 8. Allergies and Home Medications Allergies Coded Allergies: NKANo Known Allergies (Verified Allergy, Unknown, 09/21/22) Patient Home Medication List Home Medication List Reviewed: Yes Allopurinol (Allopurinol) 100 Mg Tablet, 100 MG PO DAILY, (Reported) Entered as Reported by: JACK WALKER on 07/14/15 0833 Apixaban (Eliquis) 5 Mg Tablet, 5 MG PO BID, (Reported) Entered as Reported by: FEDE HARVEY on 05/16/22 1349 Atorvastatin Calcium (Atorvastatin Calcium) 40 Mg Tablet, 40 MG PO DAILY, (Reported) Entered as Reported by: FEDE HARVEY on 05/16/22 1349 Losartan Potassium (Losartan Potassium) 50 Mg Tablet, 50 MG PO DAILY, (Reported) Entered as Reported by: FEDE HARVEY on 05/16/22 1349 Methylcellulose (Fiber) 500 Mg Tablet, 500 MG PO BID, (Reported) Entered as Reported by: FEDE HARVEY on 05/16/22 1349 Nystatin (Nystatin) 100,000 Unit/Gram Cream..g., 15 GM TP BID Prescribed by: PADMINI ROSADO on 05/16/22 1208 Oxybutynin Chloride (Oxybutynin Chloride) 5 Mg Tablet, 5 MG PO DAILY, (Reported) Entered as Reported by: JACK WALKER on 07/14/15 0833 Vit C/E/Zn/Coppr/Lutein/Zeaxan (Preservision Areds 2 Softgel) 250MG-90MG Capsule, 1 EACH PO BID, (Reported) Entered as Reported by: FEDE HARVEY on 05/16/22 1349 Past Pckzuva-Semmhb-Rfomns Hx Patient Social History Smoking Status: Never a Smoker 2nd Hand Smoke Exposure: No Recent Hopitalizations: No Alcohol Use?: No Immunizations Up To Date Tetanus Booster (TDap): Unknown Date of Pneumonia Vaccine: Jul 14, 2013 Seasonal Allergies Seasonal Allergies: No Surgeries History of Surgeries: Yes (kidney, liver lac. repair(17yrsold),/hernia repair x 2/pacemaker) Surgeries: Abdominal, Eye Surgery, Pacemaker Respiratory History of Respiratory Disorde: No Cardiovascular History of Cardiac Disorders: Yes Cardiac Disorders: Atrial Fibrillation, High Cholesterol, Hypertension Neurological History of Neurological Disord: Yes Neurological Disorders: Stroke Reproductive System Hx Reproductive Disorders: No Gastrointestinal History of Gastrointestinal Di: No Musculoskeletal History of Musculoskeletal Dis: Yes Musculoskeletal Disorders: Gout Endocrine History of Endocrine Disorders: No HEENT History of HEENT Disorders: Yes (right eye retinal detachment status post surgery) Cancer History of Cancer: Yes Cancer: Prostate Psychosocial History of Psychiatric Problem: No Integumentary History of Skin or Integumenta: No Blood Transfusions History of Blood Disorders: No Family Medical History Significant Family History: Cancer, CVA Family Medial History: BRAIN TUMOR 19 MOTHER G8 BROTHER BRAIN TUMOR 19 MOTHER G8 BROTHER Completed stroke 19 FATHER ( AT AGE 50 YRS OF AGE FROM BLOOD CLOT TO BRAIN) FH: brain tumor Review of Systems-General Constitutional: weakness; No weight gain, No weight loss EENTM: No mouth pain, No epistaxis, No throat swelling Respiratory: No cough, No dyspnea on exertion, No short of breath Cardiovascular: No chest pain; Hx of Intervention Gastrointestinal: No abdominal pain, No nausea, No vomiting Genitourinary: No dysuria, No frequency, No hematuria Musculoskeletal: joint pain, joint swelling Psychiatric/Neurological: Other (severe dementia) Physical Exam-General Problems Physical Exam Vital Signs Vital Signs - First Documented 06/18/23 06/18/23 06/18/23 15:10 18:07 18:45 Temp 37.3 Pulse 79 Resp 16 B/P (MAP) 110/66 (81) Pulse Ox 100 O2 Delivery Room Air Capillary Refill : Less Than 3 Seconds General Appearance: WD/WN, no apparent distress Eyes: Bilateral Eye PERRL, Bilateral Eye Abnormal EOM HEENT: pharynx normal; No scleral icterus (R), No scleral icterus (L) Neck: non-tender, supple Respiratory: lungs clear, normal breath sounds, no respiratory distress, no accessory muscle use Cardiovascular: regular rate, rhythm, no murmur Gastrointestinal: non tender, soft, no organomegaly Extremities: no pedal edema, no calf tenderness Neurologic/Psychiatric: alert, disoriented x 3 Skin: warm/dry, pallor Lymphatic: no adenopathy (neck, supraclavicular, inguinal) Data Review Labs Laboratory Tests 06/18/23 15:30: White Blood Count 7.1, Red Blood Count 2.11L, Hemoglobin 6.3*L, Hematocrit 20*L, Mean Corpuscular Volume 93, Mean Corpuscular Hemoglobin 30, Mean Corpuscular Hemoglobin Concent 32, Red Cell Distribution Width 16.0H, Platelet Count 199, Mean Platelet Volume 10.1, Immature Granulocyte % (Auto) 0, Neutrophils (%) (Auto) 72, Lymphocytes (%) (Auto) 20, Monocytes (%) (Auto) 7, Eosinophils (%) (Auto) 1, Basophils (%) (Auto) 0, Neutrophils # (Auto) 5.1, Lymphocytes # (Auto) 1.4, Monocytes # (Auto) 0.5, Eosinophils # (Auto) 0.0, Basophils # (Auto) 0.0, Immature Granulocyte # (Auto) 0.0, Prothrombin Time 16.0H, INR Comment 1.3, Activated Partial Thromboplast Time 22L, Sodium Level 142, Potassium Level 4.8, Chloride Level 109H, Carbon Dioxide Level 23, Anion Gap 10, Blood Urea Nitrogen 22H, Creatinine 0.85, Estimat Glomerular Filtration Rate 83, BUN/Creatinine Ratio 26, Glucose Level 110H, Calcium Level 8.4L, Corrected Calcium 9.0, Total Bilirubin 0.3, Aspartate Amino Transf (AST/SGOT) 34, Alanine Aminotransferase (ALT/SGPT) 12, Alkaline Phosphatase 66, Total Protein 5.7L, Albumin 3.3 06/19/23 07:22: White Blood Count 6.8, Red Blood Count 2.36L, Hemoglobin 7.1L, Hematocrit 22L, Mean Corpuscular Volume 92, Mean Corpuscular Hemoglobin 30, Mean Corpuscular Hemoglobin Concent 33, Red Cell Distribution Width 16.5H, Platelet Count 167, Mean Platelet Volume 10.2, Sodium Level 142, Potassium Level 4.2, Chloride Level 110H, Carbon Dioxide Level 23, Anion Gap 9, Blood Urea Nitrogen 21H, Creatinine 0.86, Estimat Glomerular Filtration Rate 83, BUN/Creatinine Ratio 24, Glucose Level 93, Calcium Level 8.1L, Corrected Calcium 8.9, Total Bilirubin 0.9, Aspartate Amino Transf (AST/SGOT) 15, Alanine Aminotransferase (ALT/SGPT) 8, Alkaline Phosphatase 55, Total Protein 4.8L, Albumin 3.0L Assessment/Plan Assessment/Plan Assessment/Plan Anemia GI bleed Coagulopathy HTN, Hx of CVA Pt's family are insistent on endoscopy. I went over all options with his son (treating plant pumper); do nothing, do nothing but transfuse and treat symptoms, finally upper and lower endoscopy. Endoscopies come with risk of pain, bleeding, esophageal or intestinal perforation and have limited benefit if what is found isn't treated. I answered all of the son's questions and he would like to have the procedures done, "so they can know". I will start the prep today and plan on EGD and Colonoscopy tomorrow. Will get consent. Pt is scheduled to get one more transfusion. SHERIE ESPINOZA DO Jun 19, 2023 09:57
[2023-06-19] MEDS ORDERED: MIDO10TA PO (10:10)
[2023-06-19] MEDS ORDERED: MIRT-68 PO (10:10)
[2023-06-19] MEDS ORDERED: DRON400T6 PO (10:10)
--- NOTE | 2023-06-19 11:40 | History & Physical-Hospitalist ---
History of Present Illness HPI/Chief Complaint Patient is an 88-year-old male with past medical history dementia A- fib and hypotension who presented to the emergency department due to anemia. His son is his primary automobile body repairer helper and states he has a history of syncope but after being on midodrine that has essentially resolved. Last week he started passing out again and his blood pressures were low so he had outpatient labs done which revealed the anemia. He presented to the ER yesterday with due to hemoglobin of 6.3. He was given a unit of blood and hemoglobin increased to 7.1. His son states that he has had dark stools for a while. He is currently getting another unit of blood. Plan is for EGD and colonoscopy tomorrow. Source: patient Date Seen 06/19/23 Time Seen by a Provider: 11:34 Attending Physician Yair Martinez MD PCP Admitting Physician: Linda Franco MD Attending Physician: Linda Franco MD Referring Physician Date of Admission Jun 18, 2023 at 17:24 Home Medications & Allergies Home Medications Reviewed patient Home Medication Reconciliation performed by pharmacy medication reconciliations account technician and/or nursing. Patients Allergies have been reviewed. Allergies Allergies Coded Allergies NKANo Known Allergies (Verified Allergy, Unknown, 09/21/22) Past Pedbsys-Puwrlo-Qnniqt Hx Patient Social History Marrital Status: Employed/Student: retired Tobacco Use?: No Smoking Status: Never a Smoker Use of E-Cig and/or Vaping dev: No Substance use?: No Alcohol Use?: No Pt feels they are or have been: No Immunizations Up To Date First/Initial COVID19 Vaccinat: 2020 Second COVID19 Vaccination Yosef: 2020 Tetanus Booster (TDap): Less Than 5 Years Hepatitis A: Yes Hepatitis B: Yes Date of Pneumonia Vaccine: Jul 14, 2013 Seasonal Allergies Seasonal Allergies: No Current Status Advance Directives: Yes Advance Directive Location: Copy from prev record Communicates: Verbally Primary Language: Sri Lankan Preferred Spoken Language: [place]ankan Is interpretation needed?: No Sensory deficits: Vision impairment, Hearing impairment, Speech impairment Implanted or Applied Medical D: Pacemaker Past Medical History Surgeries: Abdominal, Eye Surgery, Pacemaker Atrial Fibrillation, High Cholesterol, Hypertension Stroke Gout Prostate Blood Disorders: No Family Medical History BRAIN TUMOR 19 MOTHER G8 BROTHER BRAIN TUMOR 19 MOTHER G8 BROTHER Completed stroke 19 FATHER ( AT AGE 50 YRS OF AGE FROM BLOOD CLOT TO BRAIN) FH: brain tumor Cancer, CVA Review of Systems Constitutional: see HPI Physical Exam Physical Exam Vital Signs Vital Signs - First Documented 06/18/23 06/18/23 06/18/23 15:10 18:07 18:45 Temp 37.3 Pulse 79 Resp 16 B/P (MAP) 110/66 (81) Pulse Ox 100 O2 Delivery Room Air Capillary Refill : Less Than 3 Seconds Height, Weight, BMI Height: 5'10.00" Weight: 170lbs. 0oz. 77.191514sl; 23.18 BMI Method:Estimated General Appearance: No Apparent Distress, Chronically ill, Thin Respiratory: Lungs Clear, No Accessory Muscle Use, No Respiratory Distress Cardiovascular: Regular Rate, Rhythm, No Murmur Gastrointestinal: Normal Bowel Sounds, Non Tender, Soft Neurologic/Psychiatric: Alert, Disoriented Results Results/Procedures Labs Laboratory Tests 06/18/23 15:30 06/19/23 07:22 Patient resulted labs reviewed. Assessment/Plan Admission Diagnosis GI Bleed Admission Status: Inpatient Order (span 2 midnights) Reason for Inpatient Admission: see below Assessment and Plan GI Bleed Anemia Hgb 6.3 yesterday, up to 7.1 this AM- another unit ordered and running now Surgery consulted, appreciate recs Planning for prep and then scopes tomorro Monitor H&H Dementia h/o CVA Continue home meds H/o sick sinus syndrome with pAF- s/p pacemaker h/o HTN HLD Recently has been hypotensive on midodrine Continue midodrine Hold Eliquis Cardiology consulted, appreciate recs DVT ppx: SCDs only LINDA FRANCO MD Jun 19, 2023 11:40
[2023-06-19] MEDS ORDERED: BISACODYL 5 MG TABLET PO SCH ×2 (12:00→15:00)
[2023-06-19] MEDS: MIDODRINE 10 MG (PROAMATINE) TAB PO SCH ×2 (13:24→20:03)
[2023-06-19] MEDS: NS IV 1000 ML 1,000 ML IV SCH ×2 (13:24→22:05)
[2023-06-19] MEDS ORDERED: LORazepam 0.5 MG (ATIVAN) TABLET ONE (15:35)
[2023-06-19] MEDS: LORazepam 0.5 MG (ATIVAN) TABLET PO PRN (15:36)
[2023-06-19] MEDS ORDERED: polyethylene glycoL Bowel Prep(MIRALAX) 238 GM PO SCH (18:00)
[2023-06-19] MEDS: MIRTAZAPINE 15 MG (REMERON) TAB PO SCH (20:02)
[2023-06-19] MEDS: DRONEDARONE 400 MG TABLET PO SCH (20:05)
[2023-06-20] VITALS (12 sets, daily range): BP systolic 109–167; BP diastolic 58–82
[2023-06-20] MEDS: LORazepam 0.5 MG (ATIVAN) TABLET PO PRN (00:57)
[2023-06-20 05:45] LABS: HEMATOCRIT 22 % (40-54); HEMOGLOBIN 7.2 g/dL (13.3-17.7); MEAN CORPUSCULAR HEMOGLOBIN 30 pg (25-34); MEAN CORPUSCULAR HGB CONC 33 g/dL (32-36); MEAN CORPUSCULAR VOLUME 92 fL (80-99); MEAN PLATELET VOLUME 10.6 fL (9.0-12.2); PLATELET COUNT 171 10^3/uL (130-400); WHITE BLOOD COUNT 7.3 10^3/uL (4.3-11.0)
[2023-06-20] MEDS: CATHETER FLUSH 10 ML SYR IVP SCH ×3 (05:48→20:33)
[2023-06-20 06:00] LABS: POTASSIUM 3.9 MMOL/L (3.6-5.0)
[2023-06-20 06:01] LABS: CALCIUM 7.9 MG/DL (8.5-10.1)
[2023-06-20 06:05] LABS: CREATININE SERUM 0.77 MG/DL (0.60-1.30)
[2023-06-20] MEDS: NS IV 1000 ML 1,000 ML IV SCH ×2 (06:42→17:03)
[2023-06-20] MEDS: MIDODRINE 10 MG (PROAMATINE) TAB PO SCH ×3 (09:00→20:33)
[2023-06-20] MEDS: PANTOPRAZOLE 40 MG (PROTONIX) VIAL IV SCH ×2 (09:07→20:32)
[2023-06-20] MEDS ORDERED: LACTATED RINGERS 1,000 ML IV STA (09:58)
[2023-06-20] MEDS ORDERED: HURRICAINE EXT TUBE (BENZOCAINE) XX PRN (10:00)
[2023-06-20] MEDS ORDERED: PROPOFOL INJECTION 50 ML IV ONE (10:15)
--- NOTE | 2023-06-20 10:18 | Progress Note - Surgery ---
Subjective Time Seen by a Provider: 10:08 Subjective/Events-last exam Pt seen and examined, appears comfortable. Son states he was still having some black BMs. Pt not in any pain. Review of Systems Cardiovascular: No: Chest Pain Gastrointestinal: No: Nausea, Vomiting, Abdominal Pain Objective Exam Vital Signs Date Time Temp Pulse Resp B/P (MAP) Pulse Ox O2 Delivery O2 Flow Rate FiO2 06/20/23 08:00 97 Room Air 06/20/23 07:48 36.6 72 20 127/61 (83) 97 Room Air 06/20/23 07:00 67 06/20/23 03:46 37.0 88 16 123/66 (85) 95 Room Air 06/20/23 01:00 88 06/19/23 23:46 37.2 90 18 138/70 (92) 94 Room Air 06/19/23 20:05 Room Air 06/19/23 20:00 36.3 91 18 132/66 (88) 93 Room Air 06/19/23 19:00 92 06/19/23 16:00 36.6 89 17 152/77 (102) Room Air 06/19/23 13:00 36.7 89 20 136/82 96 Room Air 06/19/23 12:11 91 06/19/23 11:49 37.2 82 18 114/64 (81) 94 Room Air 06/19/23 10:31 81 109/57 (74) I & O 06/20/23 07:00 Intake Total 3580 ml Balance 3580 ml Capillary Refill : Less Than 3 Seconds General Appearance: No Apparent Distress, Chronically ill, Thin Respiratory: Lungs Clear, Normal Breath Sounds, No Accessory Muscle Use, No Respiratory Distress Cardiovascular: Regular Rate, Rhythm, No Murmur Gastrointestinal: non tender, soft, no organomegaly Neurologic/Psychiatric: Disoriented Skin: Warm/Dry, Pallor Results Lab Laboratory Tests 06/20/23 05:28: White Blood Count 7.3, Red Blood Count 2.40L, Hemoglobin 7.2L, Hematocrit 22L, Mean Corpuscular Volume 92, Mean Corpuscular Hemoglobin 30, Mean Corpuscular Hemoglobin Concent 33, Red Cell Distribution Width 16.7H, Platelet Count 171, Mean Platelet Volume 10.6, Sodium Level 143, Potassium Level 3.9, Chloride Level 115H, Carbon Dioxide Level 22, Anion Gap 6, Blood Urea Nitrogen 16, Creatinine 0.77, Estimat Glomerular Filtration Rate 86, BUN/Creatinine Ratio 21, Glucose Level 93, Calcium Level 7.9L Assessment/Plan Assessment/Plan Assessment/Plan Anemia GI bleed Coagulopathy HTN, Hx of CVA Plan for EGD and Colonoscopy today; pt's son had no questions. Consent on chart. SHERIE ESPINOZA DO Jun 20, 2023 10:17
[2023-06-20] MEDS ORDERED: EPINEPHrine INJECTION 1 MG/ML AMP IV ONE (10:25)
[2023-06-20] MEDS ORDERED: EPINEPHrine INJECTION 1 MG/ML AMP ONE (10:27)
--- NOTE | 2023-06-20 11:07 | Cardiology Progress Note ---
Subjective Date Seen by Provider: Jun 20, 2023 Time Seen by Provider: 08:20 Subjective/Events-last exam Patient resting in bed, no new complaints. Planning for endoscopy later this morning. Objective-Cardiology Exam Last Set of Vital Signs Vital Signs 06/20/23 06/20/23 10:52 15:08 Temp 36.4 Pulse 83 Resp 18 B/P (MAP) 167/82 (110) Pulse Ox 98 O2 Delivery Room Air O2 Flow Rate 10.00 I&O Intake and Output 06/20/23 00:00 Intake Total 2680 ml Balance 2680 ml Intake Oral 1480 ml IV Total 1100 ml Other 100 ml # Voids 8 # Bowel Movements 7 General: Alert, Oriented X3, Cooperative HEENT: Atraumatic, PERRLA Neck: Supple, No JVD Lungs: Clear to Auscultation, Normal Air Movement Heart: Regular Rate, Other ( murmur) Abdomen: Soft, No Tenderness Extremities: No Clubbing, No Edema Neuro: Normal Speech Psych/Mental Status: Mood NL Results Lab Laboratory Tests 06/20/23 05:28 A/P-Cardiology Admission Diagnosis GI bleed SSS/PAF hypotension HLP Assessment/Plan Acute GI bleed, transfused 2 units. Hgb 7.2 this morning. Eliquis was discontinued. Planning for endoscopy later this morning. Sick sinus syndrome with paroxysmal atrial fibrillation status post permanent pacemaker implantation on March 23, 2006. Status post generator replacement done on July 14, 2015 with [employer] MONTOYA [id number]. 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 Continue to monitor Aortic stenosis, 2D Echo done 06/19/23 showing moderate concentric hypertrophy, EF 65-70%. Moderate to severe with peak gradient 120mmHg, mean gradient 69mmHg, calculated valve area 1.3cm Hypertension, had been having increasing hypotension and near syncope, likely secondary to GI bleed. Does have history of orthostatic hypotension. Will continue to monitor. Currently on midodrine. Hyperlipidemia, currently has been having significant weight loss and battling weight loss. Starting to regain his weight. 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 Last ultrasound done in January 2022, continue to monitor History of palpitations, probably secondary to his recurrent atrial fibrillation, reporting improvement. No further episodes were reported History of prostate cancer Supervisory-Addendum Brief Supervisory Addendum Participated in pt care: history, MDM, physical Personally performed: exam, history, MDM Care discussed with: MARIO Results interpretation: Verified all documentation Notes: Patient was seen and evaluated with Yu, examination performed, management plan was discussed, agree with the current scribed note, I made few changes to the note using Italic font Patient was seen at bedside, laying down comfortably, still pale Underwent endoscopy which showed gastric ulcer, no active bleeding at that time. Discussed with Dr. Lieberman, he will need repeat colonoscopy Continue to monitor H&H closely and transfuse try to keep hemoglobin over 8 YU PATRICK Jun 20, 2023 11:07 ASCENCION BENNETT MD Jun 20, 2023 15:36
--- NOTE | 2023-06-20 11:22 | Progress Note-Post Operative ---
Post-Operative Progess Note Surgeon (s)/Audio Visual Coordinator (s) Surgeon SHERIE ESPINOZA DO Audio Visual Coordinator: none Pre-Operative Diagnosis Anemia, GI bleed Post-Operative Diagnosis Bleeding gastric ulcer Hiatal Hernia fecal impaction/poor prep Procedure & Operative Findings Date of Procedure 06/20/23 Procedure Performed/Findings EGD with injection of epinephrine to stop bleeding Colonoscopy cut short PROCEDURE NOTE: After informed consent was obtained, the patient was brought to the endoscopy suite, placed in bed in left lateral decubitus position. He was administered IV sedation by the DIRECTOR SOFTWARE QUALITY ASSURANCE who then monitored vitals the entire time, heart rate, blood pressure and pulse ox and the scope was inserted down the mouth through the esophagus into the stomach. On the way down, noted some mild esophagitis, took a picture, pushed into the stomach, pushed past the antrum into the duodenum. Duodenum looked good. Pulled back into the stomach and saw an area of active bleeding, minimal and could not tell if it was an ulcer or not. I elected to try and inject epinephrine to stop the bleeding. Used 1ml of epinephrine in 4ml of injectable saline; injected around the area at 4 sites. Retroflexed the scope, saw small grade II AFS hiatal hernia, took a picture of this and then pulled the scope into the GE junction, took another picture of the hiatal hernia. Then pushed the scope back into the stomach, suctioned all the air out of the stomach. At this point pulled the scope up the esophagus and out the mouth. Switched camera, switched gloves, went down below and started the colonoscopy. Pushed into the rectum and immediately found black liquid and fecal material. Unable to push any further than the descending colon and elected to just remove the scope and will have to give more prep and keep on clears. I will attempt colonoscopy again tomorrow and may also look in the stomach to make sure bleeding stopped. The patient tolerated the procedure and he recovered in the endoscopy suite. Recommended for repeat colonoscopy unknown, because could not do colonoscopy and will attempt tomorrow. Anesthesia Type IV sedation by DIRECTOR SOFTWARE QUALITY ASSURANCE Estimated Blood Loss Estimated blood loss (mL): scant Specimens/Packing Specimens Removed none SHERIE ESPINOZA DO Jun 20, 2023 11:22
[2023-06-20] MEDS: ALLOPURINOL 100 MG TABLET PO SCH (11:54)
[2023-06-20] MEDS: DRONEDARONE 400 MG TABLET PO SCH ×2 (11:55→20:33)
[2023-06-20] MEDS: OXYBUTYNIN (DITROPAN) 5 MG TAB PO SCH (11:55)
[2023-06-20] MEDS ORDERED: BISACODYL 5 MG TABLET PO SCH (12:00)
--- NOTE | 2023-06-20 12:27 | Anesthesia-General Post-Op ---
MAC Patient Condition Mental Status/LOC: Same as Preop Cardiovascular: Satisfactory Nausea/Vomiting: Absent Respiratory: Satisfactory Pain: Controlled Complications: Absent Post Op Complications Complications None Follow Up Care/Instructions Patient Instructions None needed. Anesthesiology Discharge Order Discharge Order Patient is doing well, no complaints, stable vital signs, no apparent adverse anesthesia problems. No complications reported per nursing. RIC DIALLO CRNA Jun 20, 2023 12:27
--- NOTE | 2023-06-20 13:01 | Progress Note - Hospitalist ---
Subjective HPI/CC On Admission Date Seen by Provider: Jun 20, 2023 Patient is an 88-year-old male with past medical history dementia A- fib and hypotension who presented to the emergency department due to anemia. His son is his primary pickle processor and states he has a history of syncope but after being on midodrine that has essentially resolved. Last week he started passing out again and his blood pressures were low so he had outpatient labs d one which revealed the anemia. He presented to the ER yesterday with due to hemoglobin of 6.3. He was given a unit of blood and hemoglobin increased to 7.1. His son states that he has had dark stools for a while. He is currently getting another unit of blood. Plan is for EGD and colonoscopy tomorrow. Subjective/Events-last exam Pt sleeping soundly. Son at bedside. No complaints. Plan for scope today. Objective Exam Vital Signs Vital Signs Date Time Temp Pulse Resp B/P (MAP) Pulse Ox O2 Delivery O2 Flow Rate FiO2 06/20/23 11:29 36.4 81 18 151/74 (99) 92 Room Air 06/20/23 10:52 10.00 Capillary Refill : Less Than 3 Seconds General Appearance: No Apparent Distress, Chronically ill Respiratory: Lungs Clear Cardiovascular: Regular Rate, Rhythm Neurologic/Psychiatric: Alert Results/Procedures Lab Laboratory Tests 06/20/23 05:28 Patient resulted labs reviewed. Assessment/Plan Assessment and Plan Assess & Plan/Chief Complaint GI Bleed Anemia Hgb up to 7.2 today Surgery consulted, appreciate recs EGD/Colonoscpy today Continue PPI Dementia h/o CVA Continue home meds as able H/o sick sinus syndrome with pAF- s/p pacemaker h/o HTN HLD Recently has been hypotensive on midodrine Continue midodrine Hold Eliquis Cardiology consulted, appreciate recs DVT ppx: SCDs only JUNIE HANCOCK MD Jun 20, 2023 13:01
[2023-06-20] MEDS ORDERED: MILK OF MAGNESIA 400 MG/5 ML 30 ML UDC PO ONE (14:00)
--- NOTE | 2023-06-20 14:47 | Physician Query-Final Dx ---
INGRIS DIALLO 06/20/23 1447: Final Diagnosis Give Final Diagnosis Please give Final Diagnosis The medical record reflects the following clinical scenario: The patient, in the setting of History/Risk factors, advanced age, on Eliquis, Clinical Findings admission hemoglobin 6.3 increased to 7.1, EGD showing possible bleeding gastric ulcer ulcer Treatment H&H lab monitoring, 2 units packed RBCs, surgery consult EGD/colonoscopy, Epi injection during EGD Question: Can you further specify Anemia per the clinical indicators above? Please document your response in the Progress Notes or Discharge Summary. Acute blood loss anemia present on admission Other, with explanation of clinical findings Clinically undetermined, no explanation for clinical findings Please clarify and document your clinical opinion in the Progress Notes and Discharge Summary including the definitive and/or presumptive diagnosis, (suspected or probable), related to the above clinical findings. Please include clinical findings supporting your diagnosis. In responding to this query, please exercise your independent professional judgment. The purpose of this communication is to more accurately reflect the complexity of your patients condition. The fact that a question is asked does not imply that any particular answer is desired or expected. Thank you for timely response to this clarification. Ingris Diallo, MSN, RN Clinical Weighing Station Operator [phone] JUNIE HANCOCK MD 06/22/23 1441: Final Diagnosis Give Final Diagnosis Acute blood loss anemia present on admission INGRIS DIALLO Jun 20, 2023 14:47 JUNIE HANCOCK MD Jun 22, 2023 14:41
[2023-06-20] MEDS ORDERED: NS IV 500 ML 500 ML IV SCH (17:30)
[2023-06-20] MEDS: MIRTAZAPINE 15 MG (REMERON) TAB PO SCH (20:33)
[2023-06-21] VITALS (7 sets, daily range): BP systolic 140–169; BP diastolic 69–97
[2023-06-21] MEDS: NS IV 1000 ML 1,000 ML IV SCH ×3 (04:05→20:15)
[2023-06-21] MEDS: CATHETER FLUSH 10 ML SYR IVP SCH ×3 (04:06→20:15)
[2023-06-21 05:46] LABS: HEMATOCRIT 23 % (40-54); HEMOGLOBIN 7.8 g/dL (13.3-17.7); MEAN CORPUSCULAR HEMOGLOBIN 31 pg (25-34); MEAN CORPUSCULAR HGB CONC 34 g/dL (32-36); MEAN CORPUSCULAR VOLUME 91 fL (80-99); MEAN PLATELET VOLUME 10.5 fL (9.0-12.2); PLATELET COUNT 146 10^3/uL (130-400); WHITE BLOOD COUNT 6.1 10^3/uL (4.3-11.0)
[2023-06-21 05:58] LABS: POTASSIUM 3.9 MMOL/L (3.6-5.0)
[2023-06-21 05:59] LABS: CALCIUM 7.9 MG/DL (8.5-10.1)
[2023-06-21 06:04] LABS: CREATININE SERUM 0.76 MG/DL (0.60-1.30)
[2023-06-21] MEDS: OXYBUTYNIN (DITROPAN) 5 MG TAB PO SCH (08:02)
[2023-06-21] MEDS: DRONEDARONE 400 MG TABLET PO SCH ×2 (08:02→20:15)
[2023-06-21] MEDS: ALLOPURINOL 100 MG TABLET PO SCH (08:02)
[2023-06-21] MEDS: MIDODRINE 10 MG (PROAMATINE) TAB PO SCH ×3 (08:03→20:15)
--- NOTE | 2023-06-21 09:06 | Cardiology Progress Note ---
Subjective Date Seen by Provider: Jun 21, 2023 Time Seen by Provider: 08:20 Subjective/Events-last exam Patient in bed, no new complaints. Denies any chest pain Objective-Cardiology Exam Last Set of Vital Signs Vital Signs 06/20/23 06/21/23 06/21/23 10:52 12:00 13:55 Temp 36.4 Pulse 87 Resp 18 B/P (MAP) 165/87 (113) Pulse Ox 99 O2 Delivery Room Air O2 Flow Rate 10.00 I&O Intake and Output 06/21/23 00:00 Intake Total 2960 ml Balance 2960 ml Intake Oral 1810 ml IV Total 1150 ml # Voids 1 # Urine Diapers 5 # Bowel Movements 4 General: Alert, Oriented X3, Cooperative HEENT: Atraumatic, PERRLA Neck: Supple, No JVD Lungs: Clear to Auscultation, Normal Air Movement Heart: Regular Rate, Other ( murmur) Abdomen: Soft, No Tenderness Extremities: No Clubbing, No Edema Neuro: Normal Speech Psych/Mental Status: Mood NL Results Lab Laboratory Tests 06/21/23 05:25 A/P-Cardiology Admission Diagnosis GI bleed SSS/PAF hypotension HLP Assessment/Plan Acute GI bleed, transfused 3 units. Hgb 7.8 this morning. Eliquis was discontinued. Endoscopy showing gastric ulcer, management per Dr. Lieberman Sick sinus syndrome with paroxysmal atrial fibrillation status post permanent pacemaker implantation on March 23, 2006. Status post generator replacement done on July 14, [address] MONTOYA [id number]. 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 Continue to monitor Aortic stenosis, 2D Echo done 06/19/23 showing moderate concentric hypertrophy, EF 65-70%. Moderate to severe with peak gradient 120mmHg, mean gradient 69mmHg, calculated valve area 1.3cm Hypertension, had been having increasing hypotension and near syncope, likely secondary to GI bleed. Does have history of orthostatic hypotension. Blood pressure improved. Will continue to monitor. Currently on midodrine. Hyperlipidemia, currently has been having significant weight loss and battling weight loss. Starting to regain his weight. 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 Last ultrasound done in January 2022, continue to monitor History of palpitations, probably secondary to his recurrent atrial fibrillation, reporting improvement. No further episodes were reported History of prostate cancer Supervisory-Addendum Brief Supervisory Addendum Participated in pt care: history, MDM, physical Personally performed: exam, history, MDM Care discussed with: MARIO Results interpretation: Verified all documentation Notes: Patient was seen and evaluated with Thu, examination performed, management plan was discussed, agree with the current scribed note, I made few changes to the note using Italic font Patient was seen and evaluated with Thu, I visited with the son and discussed in detail his condition Currently hemoglobin is better, we will continue monitoring and transfuse as needed Regarding his GI bleed, work-up is in progress, there is a peptic ulcer disease that was injected by Dr. Lieberman Possible colonoscopy We will continue to hold oral anticoagulation for now THU PATRICK Jun 21, 2023 09:06 ASCENCION BENNETT MD Jun 21, 2023 15:40
[2023-06-21] MEDS: PANTOPRAZOLE 40 MG (PROTONIX) VIAL IV SCH ×2 (09:16→20:15)
[2023-06-21] MEDS ORDERED: proPOfol 200 MG/20 ML (DIPRIVAN) VIAL IV ONE (11:01)
--- NOTE | 2023-06-21 11:03 | Progress Note - Surgery ---
Subjective Time Seen by a Provider: 10:56 Subjective/Events-last exam Pt seen and examined, appears good today. Pt's son states his father looks better and has more color today. He is ok with just EGD today, spoke to his niece yesterday. Review of Systems Pulmonary: No Dyspnea, No Cough Cardiovascular: No: Chest Pain, Palpitations Gastrointestinal: No: Nausea, Vomiting, Abdominal Pain Objective Exam Vital Signs Date Time Temp Pulse Resp B/P (MAP) Pulse Ox O2 Delivery O2 Flow Rate FiO2 06/21/23 08:00 Room Air 06/21/23 07:52 36.6 55 16 147/69 (95) 95 Room Air 06/21/23 07:47 77 06/21/23 03:17 36.8 74 18 151/74 (99) 95 Room Air 06/21/23 01:02 77 06/20/23 23:00 36.5 66 20 149/74 (99) 96 Room Air 06/20/23 20:55 36.8 77 16 147/77 98 Room Air 06/20/23 20:30 Room Air 06/20/23 19:09 36.6 76 18 120/58 (78) 99 Room Air 06/20/23 19:00 79 06/20/23 18:45 37.1 61 20 114/61 97 Room Air 06/20/23 18:25 36.4 71 18 135/66 97 Room Air 06/20/23 15:08 36.4 83 18 167/82 (110) 98 Room Air 06/20/23 13:00 60 06/20/23 11:29 36.4 81 18 151/74 (99) 92 Room Air I & O 06/21/23 07:00 Intake Total 3060 ml Balance 3060 ml Capillary Refill : Less Than 3 Seconds General Appearance: No Apparent Distress, Chronically ill Respiratory: Lungs Clear Cardiovascular: Regular Rate, Rhythm Gastrointestinal: non tender, soft, no organomegaly Neurologic/Psychiatric: Alert Skin: Warm/Dry, Pallor Results Lab Laboratory Tests 06/21/23 05:25: White Blood Count 6.1, Red Blood Count 2.55L, Hemoglobin 7.8L, Hematocrit 23L, Mean Corpuscular Volume 91, Mean Corpuscular Hemoglobin 31, Mean Corpuscular Hemoglobin Concent 34, Red Cell Distribution Width 16.5H, Platelet Count 146, Mean Platelet Volume 10.5, Sodium Level 143, Potassium Level 3.9, Chloride Level 114H, Carbon Dioxide Level 22, Anion Gap 7, Blood Urea Nitrogen 11, Creatinine 0.76, Estimat Glomerular Filtration Rate 86, BUN/Creatinine Ratio 14, Glucose Level 87, Calcium Level 7.9L Assessment/Plan Assessment/Plan Assessment/Plan Bleeding ulcer in Stomach Anemia Coagulopathy HTN, Hx of CVA Plan for EGD today to recheck area that had epinephrine injected; pt's son had no questions. Consent on chart. SHEIRE ESPINOZA DO Jun 21, 2023 11:03
--- NOTE | 2023-06-21 11:28 | Progress Note-Post Operative ---
Post-Operative Progess Note Surgeon (s)/Leaf Sucker Operator (s) Surgeon SHERIE ESPINOZA DO Leaf Sucker Operator: none Pre-Operative Diagnosis Anemia, GI bleed Post-Operative Diagnosis AVM Hiatal hernia Procedure & Operative Findings Date of Procedure 06/21/23 Procedure Performed/Findings EGD PROCEDURE NOTE: After informed consent was obtained, the patient was brought to the endoscopy suite, placed in bed in left lateral decubitus position. He was administered IV sedation by the ANIMAL ANATOMIST who then monitored vitals the entire time, heart rate, blood pressure and pulse ox and the scope was inserted down the mouth through the esophagus into the stomach. Pushed into the stomach, and looked at the area of bleeding from yesterday. There was some dark blood, but no active bleeding. I think I saw 2-3 small AVMs in the body of the stomach. I took a few pictures of them and then suctioned all the air out of the stomach. At this point pulled the scope up the esophagus and out the mouth. The patient tolerated the procedure, and he recovered in endoscopy suite. Anesthesia Type IV sedation by ANIMAL ANATOMIST Estimated Blood Loss Estimated blood loss (mL): none Specimens/Packing Specimens Removed none SHERIE ESPINOZA DO Jun 21, 2023 11:28
--- NOTE | 2023-06-21 12:33 | Anesthesia-General Post-Op ---
MAC Patient Condition Mental Status/LOC: Same as Preop Cardiovascular: Satisfactory Nausea/Vomiting: Absent Respiratory: Satisfactory Pain: Controlled Complications: Absent Post Op Complications Complications None Follow Up Care/Instructions Patient Instructions None needed. Anesthesiology Discharge Order Discharge Order Patient is doing well, no complaints, stable vital signs, no apparent adverse anesthesia problems. No complications reported per nursing. IFEANYI KNOTT CRNA Jun 21, 2023 12:33
--- NOTE | 2023-06-21 15:47 | Progress Note - Hospitalist ---
Subjective HPI/CC On Admission Date Seen by Provider: Jun 21, 2023 Patient is an 88-year-old male with past medical history dementia A- fib and hypotension who presented to the emergency department due to anemia. His son is his primary insights manager and states he has a history of syncope but after being on midodrine that has essentially resolved. Last week he started passing out again and his blood pressures were low so he had outpatient labs d one which revealed the anemia. He presented to the ER yesterday with due to hemoglobin of 6.3. He was given a unit of blood and hemoglobin increased to 7.1. His son states that he has had dark stools for a while. He is currently getting another unit of blood. Plan is for EGD and colonoscopy tomorrow. Subjective/Events-last exam Pt repors doing well. Son at bedside and only question is regarding if patient is getting an EGD or colonscopy today. Discussed with Dr Lieberman. Plan for EGD today. Objective Exam Vital Signs Vital Signs Date Time Temp Pulse Resp B/P (MAP) Pulse Ox O2 Delivery O2 Flow Rate FiO2 06/21/23 15:40 36.7 85 19 146/70 (95) 97 Room Air 06/20/23 10:52 10.00 Capillary Refill : Less Than 3 Seconds General Appearance: No Apparent Distress, Chronically ill Respiratory: Lungs Clear, No Respiratory Distress Cardiovascular: Regular Rate, Rhythm Gastrointestinal: Normal Bowel Sounds, Non Tender, Soft Neurologic/Psychiatric: Alert, Disoriented Results/Procedures Lab Laboratory Tests 06/21/23 05:25 Patient resulted labs reviewed. Assessment/Plan Assessment and Plan Assess & Plan/Chief Complaint GI Bleed Anemia Hgb up to 7.8 today Surgery consulted, appreciate recs EGD repeat today- ?bleeding ulcer yesterday on EGD, unable to perform colonoscopy Continue PPI Dementia h/o CVA Continue home meds as able H/o sick sinus syndrome with pAF- s/p pacemaker h/o HTN HLD Recently has been hypotensive on midodrine Continue midodrine Hold Eliquis Cardiology consulted, appreciate recs DVT ppx: SCDs only JUNIE HANCOCK MD Jun 21, 2023 15:47
[2023-06-21] MEDS: MIRTAZAPINE 15 MG (REMERON) TAB PO SCH (20:15)
[2023-06-22 03:49] VITALS: BP 135/68
[2023-06-22] MEDS: LORazepam 0.5 MG (ATIVAN) TABLET PO PRN (06:08)
[2023-06-22] MEDS: CATHETER FLUSH 10 ML SYR IVP SCH ×2 (06:09→15:10)
[2023-06-22 06:15] LABS: HEMATOCRIT 24 % (40-54); HEMOGLOBIN 7.8 g/dL (13.3-17.7); MEAN CORPUSCULAR HEMOGLOBIN 30 pg (25-34); MEAN CORPUSCULAR HGB CONC 33 g/dL (32-36); MEAN CORPUSCULAR VOLUME 93 fL (80-99); MEAN PLATELET VOLUME 10.8 fL (9.0-12.2); PLATELET COUNT 161 10^3/uL (130-400); WHITE BLOOD COUNT 7.4 10^3/uL (4.3-11.0)
[2023-06-22 06:36] LABS: POTASSIUM 3.9 MMOL/L (3.6-5.0)
[2023-06-22 06:37] LABS: CALCIUM 7.9 MG/DL (8.5-10.1)
[2023-06-22 06:42] LABS: CREATININE SERUM 0.8 MG/DL (0.60-1.30)
[2023-06-22 08:29] VITALS: BP 133/72
[2023-06-22] MEDS: PANTOPRAZOLE 40 MG (PROTONIX) VIAL IV SCH (09:12)
[2023-06-22] MEDS: OXYBUTYNIN (DITROPAN) 5 MG TAB PO SCH (09:12)
[2023-06-22] MEDS: ALLOPURINOL 100 MG TABLET PO SCH (09:12)
[2023-06-22] MEDS: MIDODRINE 10 MG (PROAMATINE) TAB PO SCH ×2 (09:12→15:09)
[2023-06-22] MEDS: DRONEDARONE 400 MG TABLET PO SCH (09:27)
[2023-06-22] MEDS: NS IV 1000 ML 1,000 ML IV SCH (09:45)
--- NOTE | 2023-06-22 10:01 | D/C HH Face to Face Order ---
D/C Face to Face Orders Instructions for Patient Via [facility], Patient Instructions/FollowUp: Please continue to take your medications as written. Please follow up with your primary care doctor to follow up this hospital stay. Physician to follow Patient: Dr Martinez Discharge Diet for Home: Cardiac Diet Patient Data-Allergies,Ht & Wt Patient Allergies: Coded Allergies: NKANo Known Allergies (Verified Allergy, Unknown, 09/21/22) Height (Feet): 5 Height (Inches): 10.00 Weight (Pounds): 170 Weight (Ounces): 0 Home Health Need/Face to Face Date of Face to Face: Jun 22, 2023 Clinical Findings: Generalized weakness and fatigue, Unsteady gait I have seen Pt [id number]: Yes Discharged To: Home Diagnosis/Conditions: GI Bleed, Anemia Patient is Homebound due to: CognItive deficits, Muscle weakness Homebound Status Due to the above stated illness, injury or surgical procedure (medical condition or diagnosis) and associated clinical findings, the patient is homebound because of his/her inability to leave home except with aid of a supportive device and/or person AND leaving the home requires a considerable and taxing effort or is medically contraindicated. Pt req the following assistanc: Aid of another person Home Health Nursing Orders Home Health Services Order: Nursing Services, Laboratory Coordinator-Evaluate & Treat, Physical Therapy-Evaluate & Treat Home Health Infusion Therapy Line Start Date: Jun 18, 2023 Certify Stmt I certify that this patient is under my care and that I, a nurse practitioner or a physician; a election assistant working with me, had a face to face encounter that - meets the physician face to face encounter requirements with this patient as dated. JUNIE HANCOCK MD Jun 22, 2023 10:01
--- NOTE | 2023-06-22 10:04 | Discharge Summary ---
Diagnosis/Chief Complaint Date of Admission Jun 18, 2023 at 17:24 Date of Discharge Discharge Date: Jun 22, 2023 Admission Diagnosis GI Bleed Primary Care Fidelina Hearn MD Discharge Summary Discharge Physical Exam Allergies: Coded Allergies: Nona Known Allergies (Verified Allergy, Unknown, 09/21/22) Vitals & I&Os Vital Signs Date Time Temp Pulse Resp B/P (MAP) Pulse Ox O2 Delivery O2 Flow Rate FiO2 06/22/23 11:47 37.0 79 16 130/77 (94) 95 Room Air 06/22/23 08:00 0.00 General Appearance: No Apparent Distress Respiratory: Lungs Clear, No Respiratory Distress Cardiovascular: Regular Rate, Rhythm, Systolic Murmur Neurologic/Psychiatric: Alert, Disoriented Hospital Course Patient was admitted to the hospital secondary to anemia due to upper GI bleed. He underwent endoscopy twice which ultimately revealed an AVM that had quit bleeding. They attempted a colonoscopy but they were unable to due to poor prep. Dr. Lieberman discussed his case with his family member who is a GI fellow in [place] and they decided to defer further colonoscopy. He was given 3 total units of packed red blood cells and hemoglobin stabilized. I did order iron studies and these are pending upon discharge. I did start him on oral iron supplementation. I did call and speak with Dr. Hearn regarding this admission. He was discharged home with home health in stable improved condition to his home with his son. Labs (last 24 hrs) Laboratory Tests 06/22/23 05:26: White Blood Count 7.4, Red Blood Count 2.59L, Hemoglobin 7.8L, Hematocrit 24L, Mean Corpuscular Volume 93, Mean Corpuscular Hemoglobin 30, Mean Corpuscular Hemoglobin Concent 33, Red Cell Distribution Width 16.6H, Platelet Count 161, Mean Platelet Volume 10.8, Sodium Level 142, Potassium Level 3.9, Chloride Level 113H, Carbon Dioxide Level 23, Anion Gap 6, Blood Urea Nitrogen 12, Creatinine 0.80, Estimat Glomerular Filtration Rate 85, BUN/Creatinine Ratio 15, Glucose Level 94, Calcium Level 7.9L Patient resulted labs reviewed. Pending Labs Discussion & Recommendations Discharge Planning: >30 minutes discharge planning Discharge Home Medications: Active Scripts Active Feosol (Ferrous Sulfate) 325 Mg (65 Mg Iron) Tablet 325 Mg PO Q48H Reported Multaq (Dronedarone HCl) 400 Mg Tablet 400 Mg PO BID Midodrine HCl 10 Mg Tablet 10 Mg PO TID Mirtazapine 15 Mg Tablet 15 Mg PO HS Fiber (Methylcellulose) 500 Mg Tablet 500 Mg PO BID Allopurinol 100 Mg Tablet 100 Mg PO DAILY Oxybutynin Chloride 5 Mg Tablet 5 Mg PO DAILY Instructions to patient/family Please see electronic discharge instructions given to patient. Copy Copies To 1: FIDELINA HEARN MD, KATELYN M MD Jun 22, 2023 10:04
--- NOTE | 2023-06-22 10:09 | Physical Therapy Evaluation ---
PT Evaluation-General Medical Diagnosis Admission Date Jun 18, 2023 at 17:24 Medical Diagnosis: dizziness/syncope Onset Date: Jun 18, 2023 Therapy Diagnosis Therapy Diagnosis: debility Height/Weight Height (Feet): 5 Height (Inches): 10.00 Weight (Pounds): 170 Weight (Ounces): 0 Precautions Precautions/Isolations: Fall Prevention, Standard Precautions Referral Physician: Salvador Reason for Referral: Evaluation/Treatment Medical History Pertinent Medical History: CVA, Dementia, GERD, HTN, OA Current History ER secondary to multiple syncopal episodes (Hgb 6.8) Reviewed History: Yes Social History Home: Single Level Current Living Status: Other Family Prior Prior Level of Function SCALE: Activities may be completed with or without assistive devices. 0-Xujxfjhizs-udkqcau completes the activity by him/herself with no assistance from a helper. 5-Set-up or Clean-up Assistance-helper sets up or cleans up; patient completes activity. [place] assists only prior to or following the activity. 4-Supervision or Touching Assistance-helper provides verbal cues and/or touching/steadying and/or contact guard assistance as patient completes activity. Assistance may be provided throughout the activity or intermittently. 3-Partial/Moderate Assistance-helper does LESS THAN HALF the effort. [place] lifts, holds or supports trunk or limbs, but provides less than half the effort. 2-Substantial/Maximal Assistance-helper does MORE THAN HALF the effort. [place] lifts or holds trunk or limbs and provides more than half the effort. 8-Eutjbfeha-dlqcpm does ALL the effort. Patient does none of the effort to complete the activity. Or, the assistance of 2 or more helpers is required for the patient to complete the activity. If activity was not attempted, code reason: 7-Patient Refused. 9-Not Applicable-not attempted and the patient did not perform the activity before the current illness, exacerbation or injury. 10-Not Attempted due to Environmental Limitations-(lack of equipment, weather restraints, etc.). 88-Not Attempted due to Medical Conditions or Safety Concerns. Bed Mobility: 4 Transfers (B,C,W/C): 4 Gait: 4 Indoor Mobility (Ambulation): Needed Some Help Prior Devices Use: Walker (4WW) son assist with all mobility PT Evaluation-Current Subjective Patient and son agree to therapy. Objective Patient Orientation: Person ROM/Strength ROM Lower Extremities bilateral LE WFL Strength Lower Extremities 3/5 grossly bilateral LE all planes Integumentary/Posture Bladder Incontinence: Yes Posture WFL Neuromuscular (Tone, Coordination, Reflexes) diminished coordination (per son, this is normal) Sensory Vision: Functional Hearing: Functional Transfers Sit to Stand (QC): 4 Chair/Otd-cn-Pvhze Xfer(QC): 4 Toilet Transfer (QC): 4 Gait Mode of Locomotion: Walk Anticipated Mode of Locomotion: Walk Walk 10 feet (QC): 4 Walk 50 ft with 2 Turns(QC): 4 Walk 150 ft (QC): 4 Distance: 200' Gait Assistive Device: Walker 4 Wheeled Comments/Gait Description CGA for safety/WBOS with mild shuffle gait Balance Sitting Static: Normal Sitting Dynamic: Normal Standing Static: Fair Standing Dynamic: Fair Assessment/Needs Patient is currently near PLOF, per son, and will dismiss to home with family assist and home health. Rehab Potential: Fair PT Plan Treatment/Plan Treatment Plan: Discontinue PT Treatment Duration: Jun 22, 2023 Frequency: 1 time per week Estimated Hrs Per Day: .25 hour per day Patient and/or Family Agrees t: Yes Time Time In: 940 Time Out: 1000 DATE: Jun 22, 2023 Total Billed Treatment Time: 20 [facility] GONZALEZ GILLETTE PT Jun 22, 2023 10:09
--- NOTE | 2023-06-22 10:09 | Occupational Therapy Eval ---
OT Evaluation-General/PLF Medical Diagnosis Admission Date Jun 18, 2023 at 17:24 Medical Diagnosis: GI bleed Onset Date: Jun 18, 2023 Therapy Diagnosis Therapy Diagnosis: weakness, unsteady gait Height/Weight Height (Feet): 5 Height (Inches): 10.00 Weight (Pounds): 170 Weight (Ounces): 0 Precautions Precautions/Isolations: Fall Prevention, Standard Precautions Referral Referral Reason: Self Care, Evaluation/Treatment, Strengthening/ROM Medical History Pertinent Medical History: GERD, HTN, OA Additional Medical History Patient is an 88-year-old male with past medical history dementia A- fib and hypotension who presented to the emergency department due to anemia. His son is his primary foundry molder and states he has a history of syncope but after being on midodrine that has essentially resolved. Last week he started passing out again and his blood pressures were low so he had outpatient labs done which revealed the anemia. He presented to the ER with due to hemoglobin of 6.3. He was given 2 unit2 of blood. His son states that he has had dark stools for a while. Plan is for EGD and colonoscopy . Reviewed History: Yes Social History Home: Single Level Current Living Status: Children ADL-Prior Level of Function SCALE: Activities may be completed with or without assistive devices. 6-Jctxptfkvj-riwllmm completes the activity by him/herself with no assistance from a helper. 5-Set-up or Clean-up Assistance-helper sets up or cleans up; patient completes activity. [place] assists only prior to or following the activity. 4-Supervision or Touching Assistance-helper provides verbal cues and/or touching/steadying and/or contact guard assistance as patient completes activity. Assistance may be provided throughout the activity or intermittently. 3-Partial/Moderate Assistance-helper does LESS THAN HALF the effort. [place] lifts, holds or supports trunk or limbs, but provides less than half the effort. 2-Substantial/Maximal Assistance-helper does MORE THAN HALF the effort. [place] lifts or holds trunk or limbs and provides more than half the effort. 5-Ypqbkbkkx-ldeujv does ALL the effort. Patient does none of the effort to complete the activity. Or, the assistance of 2 or more helpers is required for the patient to complete the activity. If activity was not attempted, code reason: 7-Patient Refused. 9-Not Applicable-not attempted and the patient did not perform the activity before the current illness, exacerbation or injury. 10-Not Attempted due to Environmental Limitations-(lack of equipment, weather restraints, etc.). 88-Not Attempted due to Medical Conditions or Safety Concerns. Self Care: Needed Some Help Functional Cognition: Needed Some Help DME/Equipment Comments Was using cane at home now using 4ww/seat Drive Self: No OT Current Status Subjective Agreeable to OT, desire to go home Mental Status/Objective Patient Orientation: Person Current Upper Extremity ROM WFL of ADL levels Upper Extremity Coordination fair Upper Extremity Strength +3/5 grossly ADL-Treatment Eating (QC): 5 Oral Hygiene (QC): 4 Shower/Bathe Self (QC): 7 Upper Body Dressing (QC): 3 Lower Body Dressing (QC): 2 On/Off Footwear (QC): 2 Toileting Hygiene (QC): 3 Education OT Patient Education: Correct positioning, Instructions to caregiver, Modified ADL techniques, Progress toward Goal/Update tx plan, Purpose of tx/functional activities, Reviewed precautions, Rehab process, Safety issues, Transfer techniques, Use of adapted equipment Teaching Recipient: Patient, Family Teaching Methods: Demonstration, Discussion Response to Teaching: Verbalize Understanding, Reinforcement Needed OT Care Home Goals Care Home Goals 1=Demonstrate adherence to instructed precautions during ADL tasks. 2=Patient will verbalize/demonstrate understanding of assistive devices/modifications for ADL. 3=Patient will improve strength/tolerance for activity to enable patient to perform ADL's. OT Education/Plan Problem List/Assessment Assessment: Decreased Activ Tolerance, Decreased Safety Aware, Impaired Cognition, Impaired Coordination, Impaired Funct Balance, Impaired Self-Care Skills Discharge Recommendations Plan/Recommendations: Discontinue OT (EVAL ONLY, home health planned at [place]) Therapy Discharge Recommendati: 24 Hour Supervision, Post Acute OT Treatment Plan/Plan of Care Treatment,Training & Education: Yes Patient would benefit from OT for education, treatment and training to promote independence in ADL's, mobility, safety and/or upper extremity function for ADL's. Plan of Care: OTHER ([place]AL only, recommend HOME HEALTH AT [place]) Treatment Duration: Jun 22, 2023 Frequency: 1 time per week Estimated Hrs Per Day: .25 hour per day Agreement: Yes Rehab Potential: Fair Time Start Time: 09:40 Stop Time: 10:10 DATE: Jun 22, 2023 Total Time Billed (hr/min): 20 Billed Treatment Time EVM 20 min MYLENE SOLIS OT Jun 22, 2023 10:09
--- NOTE | 2023-06-22 10:46 | Cardiology Progress Note ---
Subjective Date Seen by Provider: Jun 22, 2023 Time Seen by Provider: 10:45 Subjective/Events-last exam Patient was seen at bedside sitting comfortably, feeling better. Objective-Cardiology Exam Last Set of Vital Signs Vital Signs 06/22/23 06/22/23 08:00 08:29 Temp 36.8 Pulse 88 Resp 16 B/P (MAP) 133/72 (92) Pulse Ox 98 O2 Delivery Room Air O2 Flow Rate 0.00 I&O Intake and Output 06/22/23 00:00 Intake Total 2060 ml Balance 2060 ml Intake Oral 1060 ml IV Total 1000 ml # Voids 3 # Urine Diapers 3 # Bowel Movements 6 General: Alert, Oriented X3, Cooperative HEENT: Atraumatic, PERRLA Neck: Supple, No JVD Lungs: Clear to Auscultation, Normal Air Movement Heart: Regular Rate, Other ( murmur) Abdomen: Soft, No Tenderness Extremities: No Clubbing, No Edema Skin: No Rashes Neuro: Normal Speech, Normal Tone, Sensation Intact Psych/Mental Status: Mental Status NL, Mood NL Results Lab Laboratory Tests 06/22/23 05:26 A/P-Cardiology Admission Diagnosis GI bleed SSS/PAF hypotension HLP Assessment/Plan Acute GI bleed, transfused 3 units. Hgb 7.8 this morning. Eliquis was discontinued. Endoscopy showing gastric ulcer, management per Dr. Lieberman Underwent repeat endoscopy on June 21, 2023 Possible discharge today will need to be on iron supplement Sick sinus syndrome with paroxysmal atrial fibrillation status post permanent pacemaker implantation on March 23, 2006. Status post generator replacement done on July 14, [address] [employer] MONTOYA [id number]. 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 Continue to monitor Aortic stenosis, 2D Echo done 06/19/23 showing moderate concentric hypertrophy, EF 65-70%. Moderate to severe with peak gradient 120mmHg, mean gradient 69mmHg, calculated valve area 1.3cm Hypertension, had been having increasing hypotension and near syncope, likely secondary to GI bleed. Does have history of orthostatic hypotension. Blood pressure improved. Will continue to monitor. Currently on midodrine. Hyperlipidemia, currently has been having significant weight loss and battling weight loss. Starting to regain his weight. 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 Last ultrasound done in January 2022, continue to monitor History of palpitations, probably secondary to his recurrent atrial f ibrillation, reporting improvement. No further episodes were reported History of prostate cancer ASCENCION BENNETT MD Jun 22, 2023 10:46
[2023-06-22 11:47] VITALS: BP 130/77
[2023-06-22] MEDS ORDERED: FERR-65 PO (13:58)
[2023-06-22 14:00] VITALS: BP 130/77
== END 2023-06-22 14:00 | disposition home or self-care (01) | DRG 378 ==
LOC: EDUNIT# 14:46 → ER 14:47 → 4TH 17:24
PROVIDERS: ADMIT Family Medicine; ATTEND Family Medicine
PROC: 3E0G8GC Introduction of Other Therapeutic Substance into Upper GI, Via Natural or Artificial Opening Endoscopic (ICD-10-PCS; 2023-06-20 10:15)
PROC: 0DJ08ZZ Inspection of Upper Intestinal Tract, Via Natural or Artificial Opening Endoscopic (ICD-10-PCS; principal; 2023-06-21 11:03)
DX: K31.811 Angiodysplasia of stomach and duodenum with bleeding (principal); D62 Acute posthemorrhagic anemia; D68.9 Coagulation defect, unspecified; K44.9 Diaphragmatic hernia without obstruction or gangrene; I10 Essential (primary) hypertension; Z86.73 Personal history of transient ischemic attack (TIA), and cerebral infarction without residual deficits; Z95.0 Presence of cardiac pacemaker; E78.00 Pure hypercholesterolemia, unspecified; M10.9 Gout, unspecified; K25.4 Chronic or unspecified gastric ulcer with hemorrhage; Z85.46 Personal history of malignant neoplasm of prostate; I49.5 Sick sinus syndrome; I48.0 Paroxysmal atrial fibrillation; I35.0 Nonrheumatic aortic (valve) stenosis; F03.90 Unspecified dementia, unspecified severity, without behavioral disturbance, psychotic disturbance, mood disturbance, and anxiety; K56.41 Fecal impaction
CPT/HCPCS: 36415; 80048; 80053; 82728; 83540; 83550; 85025; 85027; 85610; 85730; 86850; 86900; 86901; 86920; 93005; 93306

== ENCOUNTER → 2023-10-22 | Outpatient (CLI) | payer MEDICARE ==
[~2023-10-22] MED LIST changes: +DRON400T6 PO; +FERR-65 PO; +MIDO10TA PO; +MIRT-68 PO; -OXYB5TAB13 PO; +OXYB5TAB14 PO
[2023-10-22 11:27] LABS: COLOR,URINE YELLOW; GLUCOSE, URINE (UA) NEGATIVE (NEGATIVE); PH,URINE >=9.0 (5-9); PROTEIN,URINE 3+ (NEGATIVE)
[2023-10-22 11:28] LABS: BILIRUBIN,URINE NEGATIVE (NEGATIVE); KETONES,URINE NEGATIVE (NEGATIVE); LEUKOCYTE ESTERASE ,URINE 3+ (NEGATIVE); NITRITE,URINE NEGATIVE (NEGATIVE)
[2023-10-22 11:30] LABS: CLARITY,URINE CLOUDY; WBC,URINE >100 /HPF
[2023-10-22 11:31] LABS: BACTERIA,URINE LARGE /HPF
[2023-10-22 11:36] LABS: TRIPLE PHOSPHATE CRYSTAL,UR MODERATE /LPF
== END ==
LOC: LAB 10:47
DX: Z01.812 Encounter for preprocedural laboratory examination (principal); Z01.810 Encounter for preprocedural cardiovascular examination; I35.0 Nonrheumatic aortic (valve) stenosis; Z79.899 Other long term (current) drug therapy
CPT/HCPCS: 81000; 87077; 87088